=== PATIENT | male | born 1965 | race Caucasian/White ===

== ENCOUNTER → 2016-04-29 | Outpatient (CLI) | payer OTHER ==
--- NOTE | 2016-04-29 18:49 | CT ---
History ankle pain. Comparison none. TECHNIQUE: Multiple axial sections were obtained of the right ankle from the distal tibia to the bottom of the f oot with no contrast. FINDINGS: The ankle mortise is anatomic. Joint spaces are fairly normal. I see no fracture line. Subtalar joint is normal. There is spurring of the anterior talonavicular joint. There are plantar and Achilles bayron caneal spurs. The collateral ligaments appear intact. Tarsal bones appear intact. There are small deg enerative cysts in the anterior calcaneus at the subtalar joint. There appears to be some fluid aroun d the medial flexor tendons of the ankle. The Achilles tendon is intact. CONCLUSION: Calcaneal spurring. Mild osteoarthritis at the talonavicular joint and also subtalar joint. No fractu re. Mild subcutaneous edema is noted around the ankle joint. Fluid is seen around the medial flexor t endons of the ankle that could relate to some tendinitis.
== END | disposition home or self-care (01) ==
LOC: RADCTMAIN 17:25
PROVIDERS: ATTEND Orthopaedic Surgery
DX: M19.071 Primary osteoarthritis, right ankle and foot (principal); M21.41 Flat foot [pes planus] (acquired), right foot

== ENCOUNTER → 2016-05-12 | Outpatient (CLI) | payer OTHER ==
--- NOTE | 2016-05-12 11:53 | PN ---
DATE OF SERVICE: 05/12/2016 A 50-year-old gentleman who has been followed in the [facility] for evaluation and treatment of obstructive sleep apnea-hypopnea syndrome. Patient continues to snore and has episodes of palpitation during the sleep. He usually sleeps on working days from 5 a.m. until about 10 a.m. and on the weekends. He sleeps from around 3 a.m. until 10 a.m. falling asleep: She wakes up tired, feels sleepy during the day. [place] Sleepiness Scale is 13. MEDICATIONS: Furosemide, hydrochlorothiazide, simvastatin, metoprolol. During physical exam, patient in no distress. BP 148/81, HR 58, RR 16. Height 5, 9 and the current weight 322. BMI 46.8. Temperature 97.9. Oxygen saturation at room air 100%. Oropharynx showed moderately low position of soft palate. ABDOMEN: Obese. Other physical exam normal except ( ) in the right foot. IMPRESSION: 1. Snoring, low position of soft palate, sleepiness, obstructive sleep apnea-hypopnea syndrome. 2. Obesity. 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 4. Hypertension. 5. History of osteoarthritis mostly in the right foot. 6. Episodes of cardiac palpitation. 7. Hyperlipidemia. PLAN: 1. Home sleep apnea test for evaluation of patient's breathing during the sleep. 2. CPAP titration if sleep study revealed positive for obstructive sleep apnea-hypopnea syndrome. 3. Losing weight. 4. Sleep hygiene with time in bed for at least 8 hours. 5. No driving if feeling sleepiness. Thank you very much for allowing me to participate in the management of your patient. Sincerely, Patrick Evans MD, PhD, FAASM. Diplomat of [place] [employer], Sleep Medicine Board by [place] [employer] [employer] [facility] [place]
== END | disposition home or self-care (01) ==
LOC: SLEEP 10:19
PROVIDERS: ATTEND Internal Medicine
DX: G47.33 Obstructive sleep apnea (adult) (pediatric) (principal); E66.9 Obesity, unspecified; Z68.42 Body mass index [BMI] 45.0-49.9, adult; I10 Essential (primary) hypertension; M19.071 Primary osteoarthritis, right ankle and foot; R00.2 Palpitations; E78.5 Hyperlipidemia, unspecified; Z79.899 Other long term (current) drug therapy

== ENCOUNTER 2017-10-25 10:56 | Day surgery (SDC) | payer OTHER ==
[2017-10-23 09:24] VITALS: BMI 45.1
[~2017-10-25 10:56] MED LIST: ONDANSETRON 4 MG/2 ML VIAL IVP ONE
[2017-10-25] MEDS: LACTATED RINGERS 1,000 ML IV SCH ×3 (12:05→21:01)
[2017-10-25] MEDS ORDERED: LIDOCAINE 1% 20 ML VIAL (10MG/ML) FOR IV START INTRADERMA ONE (12:05)
[2017-10-25] MEDS ORDERED: ONDANSETRON 4 MG/2 ML VIAL ONE (12:05)
[2017-10-25] MEDS ORDERED: MIDAZOLAM 2 MG/2 ML VIAL ONE ×2 (12:06→13:29)
[2017-10-25] MEDS ORDERED: LIDOCAINE 1% INJ 10MG/ML (20 ML MDV) ONE (13:29)
[2017-10-25] MEDS ORDERED: PROPOFOL 10 MG/ML 20 ML VIAL IV ONE (13:29)
[2017-10-25] MEDS ORDERED: SUCCINYLCHOLINE CHLORIDE 100 MG/5 ML SYR IV ONE (13:29)
[2017-10-25] MEDS ORDERED: NEOSTIGMINE 1 MG/ML 10 ML VIAL ONE (13:29)
[2017-10-25] MEDS ORDERED: fentaNYL (PF) 50 MCG/ML 2 ML AMP ONE (13:29)
[2017-10-25] MEDS ORDERED: ePHEDrine SULFATE/0.9% NACL/PF 50 MG/5 ML SYRINGE IV ONE (13:29)
[2017-10-25] MEDS ORDERED: ROPIVACAINE 5 MG/ML 30 ML VIAL ONE (13:29)
[2017-10-25] MEDS ORDERED: GLYCOPYRROLATE 0.2 MG/ML 2 ML VIAL ONE (13:29)
[2017-10-25] MEDS ORDERED: ROCURONIUM BROMIDE 10 MG/ML 10 ML VIAL IV ONE (13:29)
[2017-10-25] MEDS ORDERED: CLINDAMYCIN 1,800 MG in SODIUM CHLORIDE 0.9% IRRIGATIO 3,000 ML IRRIGATION ONE (14:21)
[2017-10-25] MEDS ORDERED: LACTATED RINGERS 1,000 ML IV ONE ×2 (14:30)
--- NOTE | 2017-10-25 15:14 | XR ---
Fluoroscopy History: RT ankle ORIF Rt ankle ORIF, 1:12 fluoro time, [address] Iglesias.
--- NOTE | 2017-10-25 15:33 | P.OP ---
Date of Procedure: 10/25/17 Preoperative Diagnosis: 1. 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 Gastroc equinus contracture, right 3. Morbid obesity with BMI 45.2 Postoperative Diagnosis: Same Procedure(s) Performed: 1. Right subtalar arthrodesis 2. Right gastrocnemius recession 3. Application of short leg splint by physician, right leg Anesthesia: HARLANA Surgeon: Guru Iglesias Tourist Information Assistant #1: Abilio Sosa Estimated Blood Loss (ml): 25 IV fluids (ml): 100 Pathology: none sent Condition: stable Disposition: PACU Indications for Procedure: The patient is a 51-year-old male with a medical history significant for morbid obesity with a BMI 45.2 has had a long-standing history of problems with his right foot. He was diagnosed with an adult acquired flat foot deformity and lateral sided ankle pain. His x-rays showed impingement at the lateral process of the talus and critical angle and the calcaneus. He was initially managed nonsurgically with activity modification and an Annalisa brace. He had continued pain since a computed tomography scan was ordered to assess the amount of arthritis. The computed tomography scan showed cystic changes at the critical angle of the calcaneus. The patient underwent an image guided injection of the subtalar joint and had almost complete relief of his symptoms for 3 weeks. The pain subsequently returned. We discussed continued nonsurgical treatment versus surgery. The patient had failed over 2 years of nonsurgical treatment and requested surgery. We discussed different surgical options. Due to the patient's weight and findings of cystic changes already developing in the calcaneus I recommended a subtalar fusion. The patient understands the potential risks and complications of surgery including but not limited to risk of anesthesia, risk of superficial infection, risk of deep infection, risk of delayed wound healing, risk of wound necrosis, risk of nonunion of the fusion site, risk of malunion of the fusion site, over correction of his deformity, risk of under correction of his deformity, risk of continued pain, risk of chronic pain, risk of chronic swelling, risk of DVT, risk of PE, risk of generalized to satisfaction of surgery, risk of need for further surgery, risk of symptomatic hardware, and risk of loss of life or limb. The patient provided his verbal and written consent to go forward with surgery. Description of Procedure: The patient was identified in preoperative holding and the correct right leg was marked with my initials. I reviewed the consent form with the patient and his family. All their questions were answered. The patient was then brought back to the operating room by anesthesia. He is positioned on the OR table where a general anesthetic and preoperative antibiotics were administered. A tourniquet was applied to the proximal aspect of the right leg. A bump was placed under the right side of his buttock and shoulder and internally rotate the leg. A ramp was placed under the right leg to facilitate imaging. The left leg was secured to the table. The right leg was then prepped and draped in the standard sterile fashion. Prior to starting surgery timeout was performed identifying the correct patient, operative extremity, and procedure. The patient's leg was then elevated, exsanguinated with an Esmarch bandage, and the tourniquet was inflated to 250 mmHg. I began by performing a gastrocnemius recession. A longitudinal incision was marked out over the distal EDL muscle belly of the gastrocnemius. Skin incision was made with a scalpel and dissection was carried down carefully to the subcutaneous tissue with tenotomy scissors. The facet was incised longitudinally in line with skin incision. I bluntly developed interval between the gastrocnemius aponeurosis and superficial fascia. The sural nerve was seen to be adherent to the superficial fascia. Modified right angle retractors were placed in the gastrocnemius aponeurosis was sharply incised from lateral to medial in its entirety. After releasing the gastrocnemius aponeurosis there is a significant increase in dorsiflexion of the ankle with the knee extended. The wound was then copiously irrigated and closed in layers. I then marked out an incision over the lateral aspect of the hindfoot starting at the tip of the distal fibula and extending distally in line with the fourth ray. Skin incision was made a scalpel dissection was carried down carefully to the subcu tissues with tenotomy scissors. The peroneal tendon sheath was incised and the peroneal tendons were retracted plantarly. The capsule of the subtalar joint was markedly inflamed. The capsule was incised and there was a large amount of clear serous fluid. K wires were placed in the lateral talus and calcaneus and a distractor was placed help gain entry to the joint. The cartilage was removed from the middle and posterior facet of the subtalar joint. Once all the cartilage was removed a curet was used to roughen the bony surfaces. The wound was copiously irrigated. A 2.0 mm drill bit was used to perforate the subchondral bone to help facilitate fusion. Augment was injected into the fusion site to help facilitate fusion. At this point a 0.0625 K wire was placed up through the anterior process of the calcaneus. I held the subtalar joint reduced and the K wire was driven up into the talus. I then proceeded to place 2 divergent cannulated screws through the posterior heel up into the talus. The position of the wires was verified with fluoroscopy in the lateral, mortise ankle, and axial heel views. Once I was happy with the position of the wires partially threaded cannulated screws were measured and placed generating excellent compression across the subtalar joint. Final fluoroscopic images were taken verifying position of the hardware. The wound was then gently irrigated taking care to not dilute out the augment solution. The lateral wound was closed in layers. The stab incision over the heel was closed with 3-0 nylon. The tourniquet was let down. A sterile dressing with Betadine soaked Adaptic, 4 x 4, and web roll were up was applied. A well- padded bulky Casanova splint was placed. The patient was then awoken from his anesthetic, transferred to a gurney, and brought to PACU having tolerated the procedure well. Abilio Sosa PA-C was required is a skilled care management assistant for patient positioning, surgical exposure, reduction of the joint, placement of hardware, closure of wounds, and application of splint. Plan: The patient is going to be admitted overnight for pain control and gait training. He will need 2 doses of postoperative antibiotics. While he is in the hospital he will be on Lovenox and can discharge home on aspirin for DVT prophylaxis.
[2017-10-25] MEDS: fentaNYL (PF) 50 MCG/ML 2 ML AMP IV PRN ×2 (15:38→15:42)
[2017-10-25] MEDS ORDERED: HYDROmorphone 1 MG/ML 1 ML SYRINGE IVP PRN ×3 (15:42)
[2017-10-25] MEDS ORDERED: hydrOXYzine PAMOATE 25 MG CAP PO PRN (15:42)
[2017-10-25] MEDS ORDERED: PROCHLORPERAZINE SUPPOSITORY 25 MG SUPP RECTAL PRN (15:42)
[2017-10-25] MEDS ORDERED: ONDANSETRON 4 MG/2 ML VIAL IVP PRN (15:42)
[2017-10-25] MEDS ORDERED: METOCLOPRAMIDE 5 MG/ML 2 ML VIAL IVP PRN (15:42)
[2017-10-25] MEDS ORDERED: diphenhydrAMINE 25 MG CAP PO PRN (15:42)
[2017-10-25] MEDS ORDERED: TEMAZEPAM 15 MG CAP PO PRN (15:42)
[2017-10-25] MEDS ORDERED: SENNOSIDES-DOCUSATE SODIUM 1 EACH TAB PO PRN (15:42)
[2017-10-25] MEDS ORDERED: HYDROcodone/APAP 10-325MG 1 EACH TAB PO PRN (15:45)
[2017-10-25] MEDS: HYDROmorphone 0.5 MG/0.5 ML SYRINGE IVP PRN ×2 (15:51→15:56)
[2017-10-25] MEDS ORDERED: ATORVASTATIN 10 MG TAB PO SCH (21:00)
[2017-10-25] MEDS ORDERED: METOPROLOL SUCCINATE (ER) 25 MG TAB.ER.24H PO SCH (21:00)
[2017-10-25] MEDS ORDERED: METOPROLOL SUCCINATE (ER) 50 MG TAB.ER.24H PO SCH (21:00)
[2017-10-25] MEDS: HYDROcodone/APAP 10-325MG 1 EACH TAB PO PRN (21:44)
--- NOTE | 2017-10-25 22:31 | CONS ---
CONSULTATION REASON FOR CONSULTATION: Advice regarding hypertension and multiple medical issues, requested by Dr. Iglesias. HISTORY OF PRESENT ILLNESS: This 51-year-old gentleman with a past medical history of hypertension, hyperlipidemia, history of DJD, history of hernia surgery, underwent right subtalar arthrodesis, gastrocnemius recession for right subtalar arthritis impingement. The patient tolerated the procedure well. There is no history of any fever, rigor or chills. No history of headache, loss of consciousness, seizures. PAST MEDICAL HISTORY: 1. History of hypertension. 2. Hyperlipidemia. 3. History of DJD. 4. History of psoriasis. HOME MEDICATIONS: 1. Zocor 20 mg at bedtime. 2. HydroDIURIL 25 mg daily. 3. Toprol XL 25 mg daily. 4. Lasix 20 mg daily. 5. Hydrocodone 5 mg q.6 p.r.n. 6. Aspirin 325 b.i.d. ALLERGIES: PENICILLIN. FAMILY HISTORY: No history of heart disease or strokes in the family. SOCIAL HISTORY: No history of smoking. No history of alcohol intake. REVIEW OF SYSTEMS: ENT: No diminished hearing. No diminished vision. CARDIOVASCULAR SYSTEM: No angina, palpitations. RESPIRATORY SYSTEM: No cough, hemoptysis. GI: No nausea, vomiting. : No dysuria or retention. NERVOUS SYSTEM: As mentioned earlier. ALLERGY/IMMUNOLOGY: No asthma or hayfever. MUSCULOSKELETAL: As mentioned earlier. HEMATOLOGY/ONCOLOGY: No history of anemia. ENDOCRINE: No history of diabetes, hypothyroidism. CONSTITUTIONAL: As mentioned earlier. DERMATOLOGY: Negative. RHEUMATOLOGY: Negative. PSYCHIATRY: As mentioned earlier. PHYSICAL EXAMINATION: Patient alert and oriented x3. Pulse 66, blood pressure 118/64, respirations 16, temperature 97.2, pulse ox 100% on 2 L. HEENT: Conjunctivae normal. Oral mucosa moist. NECK: No jugular venous distention. No carotid bruit. No lymph node enlargement. CARDIOVASCULAR SYSTEM: S1, S2 muffled. RESPIRATORY SYSTEM: Breath sounds diminished at the bases. No rhonchi. No crackles. ABDOMEN: Soft, non-tender. No mass palpable. No hepatosplenomegaly. LEGS: Status post right foot surgery. NERVOUS SYSTEM: No focal deficits. LABS: The preoperative labs are CBC within normal limits. Coags are normal. Chemistries showed LDL is 137, HDL of 37. ASSESSMENT: 1. Status post right subtalar arthrodesis and right gastrocnemius recession for right subtalar arthritis with impingement. 2. Hypertension. 3. Hyperlipidemia. 4. History of degenerative joint disease. 5. Psoriasis. 6. Obesity with body mass index of 45.2. RECOMMENDATIONS AND DISCUSSION: In this 51-year-old gentleman who presented with multiple complex medical issues, at this time I recommend to continue current medications, continue symptomatic treatment. I recommend resuming the home medications. Monitor blood pressure closely. I would also recommend holding the beta blockers if the patient has significant bradycardia. I would also recommend repeat labs to ensure normalcy as far as the electrolytes are concerned. Otherwise, DVT prophylaxis. Incentive spirometry. Pain management per Ortho. We will follow the patient closely with you. See orders for further details. Thank you, Dr. Iglesias, for letting us participate in the care of this patient. KARMA / MARIANN: [id number] /
[2017-10-26] MEDS: LACTATED RINGERS 1,000 ML IV SCH ×2 (03:26→09:09)
[2017-10-26] MEDS: HYDROcodone/APAP 10-325MG 1 EACH TAB PO PRN (04:04)
[2017-10-26 07:42] LABS: Basophils % (A) 0 %; Eosinophils # (A) 0.1 k/uL (0-0.7); Eosinophils % (A) 1 %; HCT 41.5 % (39.0-53.0); HGB 13.5 gm/dL (13.0-17.5); Lymphocytes % (A) 12 %; MCH 29.6 pg (25.0-35.0); MCHC 32.5 g/dL (31.0-37.0); Mean Platelet Volume 6.4; Monocytes # (A) 0.6 k/uL (0-1.0); Monocytes % (A) 7 %; Neutrophils # (A) 6.5 k/uL (1.3-7.7); Neutrophils % (A) 78 %; Platelet Count 257 k/uL (150-450); RBC 4.56 m/uL (4.30-5.90); RDW 13.4 % (11.5-15.5); WBC 8.4 k/uL (3.8-10.6)
[2017-10-26 07:53] LABS: Anion Gap 4 mmol/L; Blood Urea Nitrogen 13 mg/dL (9-20); Calcium 8.3 mg/dL (8.4-10.2); Carbon Dioxide 33 mmol/L (22-30); Chloride 102 mmol/L (98-107); Glucose 113 mg/dL (74-99); Potassium 3.7 mmol/L (3.5-5.1); Sodium 139 mmol/L (137-145)
[2017-10-26] MEDS ORDERED: HYDROCHLOROTHIAZIDE 25 MG TAB PO SCH (09:00)
[2017-10-26] MEDS ORDERED: FUROSEMIDE 20 MG TAB PO SCH (09:00)
[2017-10-26] MEDS ORDERED: ENOXAPARIN 40 MG/0.4 ML SYRINGE SQ SCH (09:00)
[2017-10-26 09:08] VITALS: PULSE 68; RESP 17; TEMP 98.3
[2017-10-26 09:18] VITALS: BP 114/75
--- NOTE | 2017-10-26 09:28 | P.DS ---
Providers Expected date of discharge: 10/26/17 Attending physician: Guru Iglesias Consults: 10/25/17 15:42 Consult Physician Routine Consulting Provider: Mauro Matos Consult Reason/Comments: post op medical management Do you want consulting provider notified?: Yes Primary care physician: Stated None - Discharge Diagnosis(es) (1) Acquired right flat foot Patient was admitted to the OR on 10/25/2017 to undergo a right subtalar arthrodesis and gastroc recession. He had failed conservative measures as an outpatient and desired to proceed with elective surgery after given informed consent. He underwent the above procedure which he tolerated well without complication. Postoperative hospital course has remained without complication. On day of discharge he is afebrile, vital signs stable, labs within acceptable ranges, tolerating by mouth meds and diet, voiding without difficulty , positive flatus, denies abdominal pain or calf pain, pain is controlled on oral pain medication and has no new complaints. Wound is benign, neurovascular status is intact, calf is soft and nontender, abdomen soft and nontender. Review of systems is negative for numbness, tingling, fever, chills, chest pain , shortness breath, nausea, vomiting, dizziness, headaches, slurred speech or other. Current Visit: Yes Status: Acute Priority: Medium Procedures: Right subtalar arthrodesis Patient Condition at Discharge: Good Plan - Discharge Summary Discharge Rx Participant: Yes New Discharge Prescriptions: New HYDROcodone/APAP 5-325MG [[place] 5-325] 1 - 2 tab PO Q6HR PRN #42 tab PRN Reason: Pain Aspirin 325 mg PO BID #28 tab No Action Metoprolol Succinate [Toprol XL] 25 mg PO HS Furosemide [Lasix] 20 mg PO DAILY Hydrochlorothiazide [Hydrodiuril] 25 mg PO DAILY Simvastatin [Zocor] 20 mg PO HS Discharge Medication List Furosemide [Lasix] 20 mg PO DAILY 06/18/14 [History] Metoprolol Succinate [Toprol XL] 25 mg PO HS 06/18/14 [History] Hydrochlorothiazide [Hydrodiuril] 25 mg PO DAILY 10/23/17 [History] Simvastatin [Zocor] 20 mg PO HS 10/23/17 [History] Aspirin 325 mg PO BID #28 tab 10/25/17 [Rx] HYDROcodone/APAP 5-325MG [[place] 5-325] 1 - 2 tab PO Q6HR PRN #42 tab 10/25/17 [ Rx] Follow up Appointment(s)/Referral(s): Guru Iglesias MD [Medical Doctor] - 2 Weeks Activity/Diet/Wound Care/Special Instructions: 1. Non-weight bearing on your right leg 2. Ice and elevate your right leg 3. Do not remove your splint, keep clean and dry 4. Take pain medications as prescribed 5. Take a 325 mg Aspirin twice a day to lower your risk of blood clot Discharge Disposition: HOME SELF-CARE
[2017-10-26] MEDS ORDERED: POTASSIUM CHLORIDE ER 20 MEQ TAB.ER PO STA (10:52)
== END 2017-10-26 12:10 | disposition home or self-care (01) ==
LOC: OR 10:56 → 3SUR 15:28 → OR 10-26 12:10
PROVIDERS: ATTEND Orthopaedic Surgery
DX: M19.071 Primary osteoarthritis, right ankle and foot (principal); M25.871 Other specified joint disorders, right ankle and foot; M62.461 Contracture of muscle, right lower leg; M21.41 Flat foot [pes planus] (acquired), right foot; E66.01 Morbid (severe) obesity due to excess calories; Z68.42 Body mass index [BMI] 45.0-49.9, adult; I10 Essential (primary) hypertension; E78.00 Pure hypercholesterolemia, unspecified; G47.33 Obstructive sleep apnea (adult) (pediatric); R60.0 Localized edema; B35.3 Tinea pedis; R00.2 Palpitations; Z79.899 Other long term (current) drug therapy; Z88.0 Allergy status to penicillin
CPT/HCPCS: 97161; 80048; 85025; 73600; 28725; 27687; 64445; C1713 ×2; J2250; J2710; J0690 ×2; J2405; J2001; J1650; J3010; J1170 ×2; J2795; J0330; J2704

== ENCOUNTER 2017-12-03 08:25 | Emergency (ER) | payer OTHER ==
[2017-12-03] MEDS ORDERED: SODIUM CHLORIDE 0.9% 1,000 ML IV STA (08:32)
--- NOTE | 2017-12-03 08:37 | ED ---
Arrhythmia/Palpitations HPI - General Stated Complaint: palpatations Time Seen by Provider: 12/03/17 08:25 Source: patient, EMS, RN notes reviewed, old records reviewed Mode of arrival: EMS Limitations: no limitations - History of Present Illness Initial Comments: This is a 52-year-old male with a history of recent surgery on his right lower extremity who also has been on Bactrim for about a week but quit taking it 3 days ago because of it making him "sick" who presents by EMS with complaints of palpitations going on for about the last week he's had some nausea with this. He states he's had the feeling of skipped beats will go on normally and then start skipping. He states had 2 episodes of nausea vomiting this prior week he has had some sweatiness to his hands no cough or phlegm production he does get some increased nausea with head movement and certain positional changes. MD Complaint: "skipped beats", palpitations - Related Data Home Medications Medication Instructions Recorded Confirmed Furosemide [Lasix] 20 mg PO DAILY 06/18/14 12/03/17 Metoprolol Succinate [Toprol XL] 25 mg PO HS 06/18/14 12/03/17 Simvastatin [Zocor] 20 mg PO HS 10/23/17 12/03/17 Hydrochlorothiazide [Hydrodiuril] 25 mg PO DAILY 12/03/17 12/03/17 Previous Rx's Medication Instructions Recorded Clindamycin [Cleocin] 150 mg PO Q6H #40 capsule 12/03/17 Magnesium 200 mg PO DAILY #14 tablet 12/03/17 Potassium Chloride ER [K-Dur 20] 20 meq PO DAILY #14 tab 12/03/17 Allergies Allergy/AdvReac Type Severity Reaction Status Date / Time Penicillins Allergy SEIZURE Verified 12/03/17 09:24 Review of Systems ROS Statement: Those systems with pertinent positive or pertinent negative responses have been documented in the HPI. ROS Other: All systems not noted in ROS Statement are negative. Past Medical History Past Medical History: Hyperlipidemia, Hypertension, Osteoarthritis (OA), Skin Disorder Additional Past Medical History / Comment(s): Psoriasis. History of Any Multi-Drug Resistant Organisms: None Reported Past Surgical History: Hernia Repair, Orthopedic Surgery Additional Past Surgical History / Comment(s): COLONOSCOPY, right foot arthritic repair surgery Past Anesthesia/Blood Transfusion Reactions: No Reported Reaction Past Psychological History: No Psychological Hx Reported Smoking Status: Never smoker Past Alcohol Use History: None Reported Past Drug Use History: None Reported - Past Family History Mother Family Medical History: Cancer Additional Family Medical History / Comment(s): COLON CANCER Father Family Medical History: Cancer Additional Family Medical History / Comment(s): LUNG AND BONE CANCER General Exam - General Exam Comments Initial Comments: Is a well-developed well-nourished awake alert oriented times 3 male Limitations: no limitations General appearance: alert, in no apparent distress Head exam: Present: atraumatic, normocephalic, normal inspection Eye exam: Present: normal appearance, PERRL, EOMI. Absent: scleral icterus, conjunctival injection, periorbital swelling ENT exam: Present: mucous membranes dry Neck exam: Present: normal inspection. Absent: tenderness, meningismus, lymphadenopathy Respiratory exam: Present: normal lung sounds bilaterally. Absent: respiratory distress, wheezes, rales, rhonchi, stridor Cardiovascular Exam: Present: regular rate, normal rhythm, normal heart sounds. Absent: systolic murmur, diastolic murmur, rubs, gallop, clicks GI/Abdominal exam: Present: soft, normal bowel sounds. Absent: distended, tenderness, guarding, rebound, rigid Extremities exam: Present: full ROM, normal capillary refill, other (A cast is present on the right lower extremity after the dressing and socks removed patient fever examine capillary refill less 2 seconds no evidence of any infectious process.). Absent: tenderness, pedal edema, joint swelling, calf tenderness Back exam: Present: normal inspection Neurological exam: Present: alert, oriented X3, CN II-XII intact Psychiatric exam: Present: normal affect, normal mood Skin exam: Present: warm, dry, intact, normal color. Absent: rash Course Vital Signs 12/03/17 12/03/17 08:31 09:22 Temperature 97.9 F Pulse Rate 62 56 L Respiratory 18 18 Rate Blood Pressure 125/77 121/74 O2 Sat by Pulse 100 97 Oximetry EKG Findings - EKG Results: EKG: interpreted by BLANCA, sinus rhythm (Sinus bradycardia rate of 58. Interval 180 QRS duration 98 QT since QTC 426/14 minimal pulses criteria for LVH nonspecific anterior configuration) Medical Decision Making - Medical Decision Making I did discuss findings with the patient potassium and magnesium levels are at the lower ends of normal patient will be discharged with supplementation in addition he will be changed from Bactrim to clindamycin we did discuss the change. He is to follow-up with his orthopedist return when necessary also follow-up with his own doctor. - Lab Data Result diagrams: 12/03/17 08:43 12/03/17 08:43 Lab Results 12/03/17 12/03/17 12/03/17 Range/Units 08:43 08:43 08:43 WBC 7.1 (3.8-10.6) k/uL RBC 4.86 (4.30-5.90) m/uL Hgb 14.7 (13.0-17.5) gm/dL Hct 43.1 (39.0-53.0) % MCV 88.7 (80.0-100.0) fL MCH 30.2 (25.0-35.0) pg MCHC 34.0 (31.0-37.0) g/dL RDW 13.2 (11.5-15.5) % Plt Count 271 (150-450) k/uL Neutrophils % 67 % Lymphocytes % 23 % Monocytes % 6 % Eosinophils % 2 % Basophils % 1 % Neutrophils # 4.7 (1.3-7.7) k/uL Lymphocytes # 1.6 (1.0-4.8) k/uL Monocytes # 0.4 (0-1.0) k/uL Eosinophils # 0.2 (0-0.7) k/uL Basophils # 0.1 (0-0.2) k/uL PT (9.0-12.0) sec INR (<1.2) APTT (22.0-30.0) sec Sodium 140 (137-145) mmol/L Potassium 3.5 (3.5-5.1) mmol/L Chloride 105 (98-107) mmol/L Carbon Dioxide 28 (22-30) mmol/L Anion Gap 7 mmol/L BUN 16 (9-20) mg/dL Creatinine 0.89 (0.66-1.25) mg/dL Est GFR (CKD-EPI)AfAm >90 (>60 ml/min/1.73 sqM) Est GFR (CKD-EPI)NonAf >90 (>60 ml/min/1.73 sqM) Glucose 109 H (74-99) mg/dL Calcium 9.0 (8.4-10.2) mg/dL Magnesium 1.8 (1.6-2.3) mg/dL Total Bilirubin 0.6 (0.2-1.3) mg/dL AST 19 (17-59) U/L ALT 23 (21-72) U/L Alkaline Phosphatase 93 (38-126) U/L Total Creatine Kinase 125 (55-170) U/L CK-MB (CK-2) 0.9 (0.0-2.4) ng/mL CK-MB (CK-2) Rel Index 0.7 Troponin I <0.012 (0.000-0.034) ng/mL Total Protein 6.9 (6.3-8.2) g/dL Albumin 3.6 (3.5-5.0) g/dL TSH 2.000 (0.465-4.680) mIU/L 12/03/17 Range/Units 08:43 WBC (3.8-10.6) k/uL RBC (4.30-5.90) m/uL Hgb (13.0-17.5) gm/dL Hct (39.0-53.0) % MCV (80.0-100.0) fL MCH (25.0-35.0) pg MCHC (31.0-37.0) g/dL RDW (11.5-15.5) % Plt Count (150-450) k/uL Neutrophils % % Lymphocytes % % Monocytes % % Eosinophils % % Basophils % % Neutrophils # (1.3-7.7) k/uL Lymphocytes # (1.0-4.8) k/uL Monocytes # (0-1.0) k/uL Eosinophils # (0-0.7) k/uL Basophils # (0-0.2) k/uL PT 10.6 (9.0-12.0) sec INR 1.1 (<1.2) APTT 25.5 (22.0-30.0) sec Sodium (137-145) mmol/L Potassium (3.5-5.1) mmol/L Chloride (98-107) mmol/L Carbon Dioxide (22-30) mmol/L Anion Gap mmol/L BUN (9-20) mg/dL Creatinine (0.66-1.25) mg/dL Est GFR (CKD-EPI)AfAm (>60 ml/min/1.73 sqM) Est GFR (CKD-EPI)NonAf (>60 ml/min/1.73 sqM) Glucose (74-99) mg/dL Calcium (8.4-10.2) mg/dL Magnesium (1.6-2.3) mg/dL Total Bilirubin (0.2-1.3) mg/dL AST (17-59) U/L ALT (21-72) U/L Alkaline Phosphatase (38-126) U/L Total Creatine Kinase (55-170) U/L CK-MB (CK-2) (0.0-2.4) ng/mL CK-MB (CK-2) Rel Index Troponin I (0.000-0.034) ng/mL Total Protein (6.3-8.2) g/dL Albumin (3.5-5.0) g/dL TSH (0.465-4.680) mIU/L - Radiology Data Radiology results: report reviewed (I did review the imaging and report no acute findings.), image reviewed Disposition Clinical Impression: Palpitations Disposition: HOME SELF-CARE Condition: Good Instructions: Heart Palpitations (ED), Hypokalemia (ED) Prescriptions: Clindamycin [Cleocin] 150 mg PO Q6H #40 capsule Magnesium 200 mg PO DAILY #14 tablet Potassium Chloride ER [K-Dur 20] 20 meq PO DAILY #14 tab Is patient prescribed a controlled substance at d/c from ED?: No Referrals: Phillip Camp MD [Primary Care Provider] - 1-2 days
[2017-12-03 09:01] LABS: Basophils # (A) 0.1 k/uL (0-0.2); Basophils % (A) 1 %; Eosinophils # (A) 0.2 k/uL (0-0.7); Eosinophils % (A) 2 %; HCT 43.1 % (39.0-53.0); HGB 14.7 gm/dL (13.0-17.5); Lymphocytes # (A) 1.6 k/uL (1.0-4.8); Lymphocytes % (A) 23 %; MCH 30.2 pg (25.0-35.0); MCV 88.7 fL (80.0-100.0); Mean Platelet Volume 6.5; Monocytes # (A) 0.4 k/uL (0-1.0); Monocytes % (A) 6 %; Neutrophils # (A) 4.7 k/uL (1.3-7.7); Neutrophils % (A) 67 %; Platelet Count 271 k/uL (150-450); RBC 4.86 m/uL (4.30-5.90); RDW 13.2 % (11.5-15.5); WBC 7.1 k/uL (3.8-10.6)
[2017-12-03 09:06] LABS: INR 1.1 (<1.2); Partial Thromboplastin Time 25.5 sec (22.0-30.0); Prothrombin Time 10.6 sec (9.0-12.0)
[2017-12-03 09:09] LABS: ALT 23 U/L (21-72); AST 19 U/L (17-59); Albumin 3.6 g/dL (3.5-5.0); Alkaline Phosphatase 93 U/L (38-126); Anion Gap 7 mmol/L; Blood Urea Nitrogen 16 mg/dL (9-20); Carbon Dioxide 28 mmol/L (22-30); Chloride 105 mmol/L (98-107); Glucose 109 mg/dL (74-99); Magnesium 1.8 mg/dL (1.6-2.3); Potassium 3.5 mmol/L (3.5-5.1); Sodium 140 mmol/L (137-145); Total Bilirubin 0.6 mg/dL (0.2-1.3); Total Protein 6.9 g/dL (6.3-8.2)
--- NOTE | 2017-12-03 09:11 | XR ---
EXAMINATION TYPE: XR chest 2V DATE OF EXAM: 12/03/2017 HISTORY: dysrhythmia. REFERENCE: NONE. FINDINGS: The lungs are clear. Pleural space are clear. The heart is not enlarged. IMPRESSION: NO ACTIVE INTRATHORACIC DISEASE.
[2017-12-03 09:16] LABS: Creatine Kinase 125 U/L (55-170)
[2017-12-03 09:28] LABS: Creatine Kinase MB 0.9 ng/mL (0.0-2.4); Troponin I <0.012 ng/mL (0.000-0.034)
[2017-12-03] MEDS ORDERED: POTASSIUM CHLORIDE ER 20 MEQ TAB.ER PO STA (10:13)
[2017-12-03 11:01] VITALS: BP 114/78; PULSE 62; RESP 16; TEMP 98.3
== END 2017-12-03 11:10 | disposition home or self-care (01) ==
LOC: EC 08:25
DX: R00.2 Palpitations (principal); R11.0 Nausea; R61 Generalized hyperhidrosis; E78.5 Hyperlipidemia, unspecified; I10 Essential (primary) hypertension; Z79.899 Other long term (current) drug therapy; Z88.0 Allergy status to penicillin
CPT/HCPCS: 36415; 71046; 80053; 82550; 82553; 83735; 84443; 84484; 85025; 85610; 85730; 87040; 93005; 96360; 96361; 99285

== ENCOUNTER 2017-12-18 08:18 | Emergency (ER) | payer OTHER ==
[2017-12-18 08:29] VITALS: TEMP 97.9
[2017-12-18] MEDS ORDERED: SODIUM CHLORIDE 0.9% 1,000 ML IV STA (08:44)
[2017-12-18] MEDS ORDERED: ONDANSETRON 4 MG/2 ML VIAL IVP STA (08:44)
[2017-12-18 08:45] VITALS: RESP 18
--- NOTE | 2017-12-18 08:58 | ED ---
General Adult HPI - General Chief complaint: Nausea/Vomiting/Diarrhea Stated complaint: vomiting, sick for a few days Time Seen by Provider: 12/18/17 08:30 Source: patient, RN notes reviewed, old records reviewed Mode of arrival: wheelchair Limitations: no limitations - History of Present Illness Initial comments: 52-year-old male history of hypercholesterolemia presents for 3 days of nausea vomiting and diarrhea. Patient states he has had nausea and vomiting each morning for the past 3 mornings. He also reports several episodes of diarrhea over this same time. Denies blood in the vomit or the diarrhea. Denies abdominal pain. Denies chest pain or shortness of breath. Denies fever or chills. Denies known sick contacts. - Related Data Home Medications Medication Instructions Recorded Confirmed Metoprolol Succinate [Toprol XL] 50 mg PO HS 06/18/14 12/18/17 Simvastatin [Zocor] 20 mg PO HS 10/23/17 12/18/17 Hydrochlorothiazide [Hydrodiuril] 25 mg PO DAILY 12/03/17 12/18/17 Hydrochlorothiazide [Hydrodiuril] 25 mg PO DAILY 12/18/17 12/18/17 Allergies Allergy/AdvReac Type Severity Reaction Status Date / Time Penicillins Allergy SEIZURE Verified 12/18/17 08:47 Review of Systems ROS Statement: Those systems with pertinent positive or pertinent negative responses have been documented in the HPI. ROS Other: All systems not noted in ROS Statement are negative. Past Medical History Past Medical History: Hyperlipidemia, Hypertension, Osteoarthritis (OA), Skin Disorder Additional Past Medical History / Comment(s): Psoriasis. History of Any Multi-Drug Resistant Organisms: None Reported Past Surgical History: Hernia Repair Additional Past Surgical History / Comment(s): COLONOSCOPY Past Anesthesia/Blood Transfusion Reactions: No Reported Reaction Past Psychological History: No Psychological Hx Reported Smoking Status: Never smoker Past Alcohol Use History: None Reported Past Drug Use History: None Reported - Past Family History Mother Family Medical History: Cancer Additional Family Medical History / Comment(s): COLON CANCER Father Family Medical History: Cancer Additional Family Medical History / Comment(s): LUNG AND BONE CANCER General Exam Limitations: no limitations General appearance: alert, in no apparent distress Head exam: Present: atraumatic, normocephalic Eye exam: Present: normal appearance, PERRL ENT exam: Present: normal exam Neck exam: Present: normal inspection. Absent: tenderness, meningismus Respiratory exam: Present: normal lung sounds bilaterally. Absent: respiratory distress, wheezes Cardiovascular Exam: Present: regular rate, normal rhythm GI/Abdominal exam: Present: soft. Absent: distended, tenderness, guarding Extremities exam: Present: normal capillary refill, other (Right ankle cast). Absent: pedal edema Neurological exam: Present: alert, oriented X3, CN II-XII intact. Absent: motor sensory deficit Psychiatric exam: Present: normal affect, normal mood Skin exam: Present: warm, dry, intact. Absent: cyanosis, diaphoretic Course Vital Signs 12/18/17 12/18/17 08:26 08:42 Temperature 97.9 F Pulse Rate 69 61 Respiratory 16 18 Rate Blood Pressure 200/65 131/89 O2 Sat by Pulse 100 100 Oximetry Medical Decision Making - Medical Decision Making 52-year-old male presenting with nausea vomiting and diarrhea. No fever. No chest pain. No dyspnea. Patient's abdomen is soft nontender nondistended. No complaints of abdominal pain. X-rays obtained of the chest and abdomen which were negative for acute process of the thorax. Normal CBC, normal CMP. Patient has no episodes of vomiting while in the emergency department. Triage blood pressure was elevated although I feel this was not accurate, repeat blood pressure have been normal. Patient will be discharged home with outpatient follow-up. - Lab Data Result diagrams: 12/18/17 08:53 12/18/17 08:53 Lab Results 12/18/17 12/18/17 12/18/17 Range/Units 08:53 08:53 08:53 WBC 6.7 (3.8-10.6) k/uL RBC 5.13 (4.30-5.90) m/uL Hgb 15.5 (13.0-17.5) gm/dL Hct 45.2 (39.0-53.0) % MCV 88.1 (80.0-100.0) fL MCH 30.2 (25.0-35.0) pg MCHC 34.3 (31.0-37.0) g/dL RDW 13.5 (11.5-15.5) % Plt Count 305 (150-450) k/uL Neutrophils % 71 % Lymphocytes % 19 % Monocytes % 7 % Eosinophils % 2 % Basophils % 1 % Neutrophils # 4.8 (1.3-7.7) k/uL Lymphocytes # 1.3 (1.0-4.8) k/uL Monocytes # 0.5 (0-1.0) k/uL Eosinophils # 0.1 (0-0.7) k/uL Basophils # 0.0 (0-0.2) k/uL PT (9.0-12.0) sec INR (<1.2) APTT (22.0-30.0) sec Sodium 139 (137-145) mmol/L Potassium 3.9 (3.5-5.1) mmol/L Chloride 104 (98-107) mmol/L Carbon Dioxide 27 (22-30) mmol/L Anion Gap 8 mmol/L BUN 16 (9-20) mg/dL Creatinine 0.90 (0.66-1.25) mg/dL Est GFR (CKD-EPI)AfAm >90 (>60 ml/min/1.73 sqM) Est GFR (CKD-EPI)NonAf >90 (>60 ml/min/1.73 sqM) Glucose 109 H (74-99) mg/dL Plasma Lactic Acid Cesar (0.7-2.0) mmol/L Calcium 9.3 (8.4-10.2) mg/dL Total Bilirubin 0.7 (0.2-1.3) mg/dL AST 20 (17-59) U/L ALT 18 L (21-72) U/L Alkaline Phosphatase 101 (38-126) U/L Total Creatine Kinase 62 (55-170) U/L CK-MB (CK-2) 0.6 (0.0-2.4) ng/mL CK-MB (CK-2) Rel Index 1.0 Troponin I <0.012 (0.000-0.034) ng/mL Total Protein 7.4 (6.3-8.2) g/dL Albumin 3.9 (3.5-5.0) g/dL Amylase 42 (30-110) U/L Lipase 52 (23-300) U/L 12/18/17 12/18/17 Range/Units 08:53 08:53 WBC (3.8-10.6) k/uL RBC (4.30-5.90) m/uL Hgb (13.0-17.5) gm/dL Hct (39.0-53.0) % MCV (80.0-100.0) fL MCH (25.0-35.0) pg MCHC (31.0-37.0) g/dL RDW (11.5-15.5) % Plt Count (150-450) k/uL Neutrophils % % Lymphocytes % % Monocytes % % Eosinophils % % Basophils % % Neutrophils # (1.3-7.7) k/uL Lymphocytes # (1.0-4.8) k/uL Monocytes # (0-1.0) k/uL Eosinophils # (0-0.7) k/uL Basophils # (0-0.2) k/uL PT 10.4 (9.0-12.0) sec INR 1.1 (<1.2) APTT 25.9 (22.0-30.0) sec Sodium (137-145) mmol/L Potassium (3.5-5.1) mmol/L Chloride (98-107) mmol/L Carbon Dioxide (22-30) mmol/L Anion Gap mmol/L BUN (9-20) mg/dL Creatinine (0.66-1.25) mg/dL Est GFR (CKD-EPI)AfAm (>60 ml/min/1.73 sqM) Est GFR (CKD-EPI)NonAf (>60 ml/min/1.73 sqM) Glucose (74-99) mg/dL Plasma Lactic Acid Cesar 1.0 (0.7-2.0) mmol/L Calcium (8.4-10.2) mg/dL Total Bilirubin (0.2-1.3) mg/dL AST (17-59) U/L ALT (21-72) U/L Alkaline Phosphatase (38-126) U/L Total Creatine Kinase (55-170) U/L CK-MB (CK-2) (0.0-2.4) ng/mL CK-MB (CK-2) Rel Index Troponin I (0.000-0.034) ng/mL Total Protein (6.3-8.2) g/dL Albumin (3.5-5.0) g/dL Amylase (30-110) U/L Lipase (23-300) U/L Disposition Clinical Impression: Nausea vomiting and diarrhea Disposition: HOME SELF-CARE Condition: Good Instructions: Acute Nausea and Vomiting (ED), Acute Diarrhea (ED) Is patient prescribed a controlled substance at d/c from ED?: No Referrals: Phillip Camp MD [Primary Care Provider] - 1-2 days Time of Disposition: 10:13
[2017-12-18 09:16] LABS: Basophils % (A) 1 %; Eosinophils # (A) 0.1 k/uL (0-0.7); Eosinophils % (A) 2 %; HCT 45.2 % (39.0-53.0); HGB 15.5 gm/dL (13.0-17.5); Lymphocytes # (A) 1.3 k/uL (1.0-4.8); Lymphocytes % (A) 19 %; MCH 30.2 pg (25.0-35.0); MCHC 34.3 g/dL (31.0-37.0); MCV 88.1 fL (80.0-100.0); Mean Platelet Volume 5.9; Monocytes # (A) 0.5 k/uL (0-1.0); Monocytes % (A) 7 %; Neutrophils # (A) 4.8 k/uL (1.3-7.7); Neutrophils % (A) 71 %; Platelet Count 305 k/uL (150-450); RBC 5.13 m/uL (4.30-5.90); RDW 13.5 % (11.5-15.5); WBC 6.7 k/uL (3.8-10.6)
--- NOTE | 2017-12-18 09:17 | XR ---
EXAMINATION TYPE: XR chest 2V DATE OF EXAM: 12/18/2017 COMPARISON: 12/03/2017 TECHNIQUE: PA and lateral views submitted. HISTORY: Pain FINDINGS: The lungs are clear and there is no pneumothorax, pleural effusion, or focal pneumonia. Biapical pl eural thickening. Heart size stable. Hypertrophic and degenerative change of the spine. IMPRESSION: 1. No acute process.
--- NOTE | 2017-12-18 09:18 | XR ---
EXAMINATION TYPE: XR KUB DATE OF EXAM: 12/18/2017 COMPARISON: NONE HISTORY: Pain and nausea TECHNIQUE: One view abdominal series FINDINGS: The osseous structures are intact. The bowel gas pattern is nonspecific. Lung bases are clear. Curv ature the spine noted. Arthropathy of the hips. IMPRESSION: 1. Nonspecific abdomen.
[2017-12-18 09:24] LABS: INR 1.1 (<1.2); Partial Thromboplastin Time 25.9 sec (22.0-30.0); Prothrombin Time 10.4 sec (9.0-12.0)
[2017-12-18 09:37] LABS: ALT 18 U/L (21-72); AST 20 U/L (17-59); Albumin 3.9 g/dL (3.5-5.0); Alkaline Phosphatase 101 U/L (38-126); Amylase 42 U/L (30-110); Anion Gap 8 mmol/L; Blood Urea Nitrogen 16 mg/dL (9-20); Calcium 9.3 mg/dL (8.4-10.2); Carbon Dioxide 27 mmol/L (22-30); Chloride 104 mmol/L (98-107); Glucose 109 mg/dL (74-99); Lipase 52 U/L (23-300); Potassium 3.9 mmol/L (3.5-5.1); Sodium 139 mmol/L (137-145); Total Bilirubin 0.7 mg/dL (0.2-1.3); Total Protein 7.4 g/dL (6.3-8.2)
[2017-12-18 09:38] LABS: Creatine Kinase 62 U/L (55-170)
[2017-12-18 09:51] LABS: Creatine Kinase MB 0.6 ng/mL (0.0-2.4); Troponin I <0.012 ng/mL (0.000-0.034)
[2017-12-18 10:13] VITALS: BP 120/71; PULSE 62
== END 2017-12-18 10:25 | disposition home or self-care (01) ==
LOC: EC 08:18
DX: R11.2 Nausea with vomiting, unspecified (principal); R19.7 Diarrhea, unspecified; I10 Essential (primary) hypertension; E78.5 Hyperlipidemia, unspecified; E78.00 Pure hypercholesterolemia, unspecified; Z79.899 Other long term (current) drug therapy; Z88.0 Allergy status to penicillin
CPT/HCPCS: 36415; 80053; 82150; 82550; 82553; 83605; 83690; 84484; 85025; 85610; 85730; 71046; 74018; 99284; 96374; 96361; J2405

== ENCOUNTER 2018-07-16 18:08 | Emergency (ER) | payer OTHER ==
[2018-07-16] MEDS ORDERED: ADENOSINE 3 MG/ML 2 ML VIAL IVP STA (18:37)
--- NOTE | 2018-07-16 18:58 | ED ---
General Adult HPI - General Chief complaint: Chest Pain Stated complaint: CHEST PAIN Time Seen by Provider: 07/16/18 18:15 Source: patient, RN notes reviewed Mode of arrival: ambulatory Limitations: no limitations - History of Present Illness Initial comments: 52-year-old male who presents emergency department stating that he is feeling his heart race per patient states this happened multiple times in the past but it stops on its own. Patient states tonight it did not stop so decided to come to the emergency department. Patient states initially when it started he felt a little lightheaded. Patient states he had no chest pain he just feels a anamika nding in his chest per patient denies any difficulty breathing first breath. Patient denies any recent fever chills or cough. Patient denies any xync-oeg-efingst medications. Patient denies any illegal drugs. Patient denies any leg swelling or calf tenderness. Patient denies any abdominal pain patient has nausea vomiting diarrhea. - Related Data Home Medications Medication Instructions Recorded Confirmed Metoprolol Succinate [Toprol XL] 50 mg PO HS 06/18/14 07/16/18 Simvastatin [Zocor] 20 mg PO HS 10/23/17 07/16/18 Hydrochlorothiazide [Hydrodiuril] 25 mg PO DAILY 12/18/17 07/16/18 Furosemide [Lasix] 20 mg PO DAILY 07/16/18 07/16/18 Allergies Allergy/AdvReac Type Severity Reaction Status Date / Time Penicillins Allergy SEIZURE Verified 07/16/18 19:00 Review of Systems ROS Statement: Those systems with pertinent positive or pertinent negative responses have been documented in the HPI. ROS Other: All systems not noted in ROS Statement are negative. Past Medical History Past Medical History: Hyperlipidemia, Hypertension, Osteoarthritis (OA), Skin Disorder Additional Past Medical History / Comment(s): Psoriasis. History of Any Multi-Drug Resistant Organisms: None Reported Past Surgical History: Hernia Repair Additional Past Surgical History / Comment(s): COLONOSCOPY Past Anesthesia/Blood Transfusion Reactions: No Reported Reaction Past Psychological History: No Psychological Hx Reported Smoking Status: Never smoker Past Alcohol Use History: None Reported Past Drug Use History: None Reported - Past Family History Mother Family Medical History: Cancer Additional Family Medical History / Comment(s): COLON CANCER Father Family Medical History: Cancer Additional Family Medical History / Comment(s): LUNG AND BONE CANCER General Exam - General Exam Comments Initial Comments: GENERAL: Patient is well-developed and well-nourished. Patient is nontoxic and well- hydrated and is in mild distress. ENT: Neck is soft and supple. No significant lymphadenopathy is noted. Oropharynx is clear. Moist mucous membranes. Neck has full range of motion without elicit ing any pain. EYES: The sclera were anicteric and conjunctiva were pink and moist. Extraocular mo vements were intact and pupils were equal round and reactive to light. Eyelids were unremarkable. PULMONARY: Unlabored respirations. Good breath sounds bilaterally. No audible rales rhonchi or wheezing was noted. CARDIOVASCULAR: Patient's heart rate was tachycardic at about 160 beats a minute ABDOMEN: Soft and nontender with normal bowel sounds. No palpable organomegaly was noted. There is no palpable pulsatile mass. SKIN: Skin is clear with no lesions or rashes and otherwise unremarkable. NEUROLOGIC: Patient is alert and oriented x3. Cranial nerves II through XII are grossly intact. Motor and sensory are also intact. Normal speech, volume and content. Symmetrical smile. MUSCULOSKELETAL: Normal extremities with adequate strength and full range of motion. No lower extremity swelling or edema. No calf tenderness. LYMPHATICS: No significant lymphadenopathy is noted PSYCHIATRIC: Normal psychiatric evaluation. Limitations: no limitations Course Vital Signs 07/16/18 18:15 Temperature 98.8 F Pulse Rate 61 Respiratory 16 Rate Blood Pressure 108/71 O2 Sat by Pulse 100 Oximetry Medical Decision Making - Medical Decision Making EKG shows supraventricular tachycardia 266 bpm QRS is 88 QT interval is 292 QTC is 485. Patient's EKG shows no obvious ST segment elevation. Patient was occasionally having a sinus beat so I decided had the patient prior down hard he. Down and converted to a normal sinus rhythm. EKG showed a normal sinus rhythm at 75 bpm [place] interval is on a 78 QRSs 100 QT interval 370 QTC is 422. Patient's EKG shows no ST segment elevation or depression or T wave abnormalities are noted. Patient never one pack of SVT while in the emergency department. Patient's labs are normal. Patient was told to follow-up with a primary medical care doctor or cardiology. Patient's told to return if symptoms worsen or he has any new symptoms. - Lab Data Result diagrams: 07/16/18 18:40 07/16/18 18:40 Lab Results 07/16/18 07/16/18 07/16/18 Range/Units 18:40 18:40 18:40 WBC 10.6 (3.8-10.6) k/uL RBC 5.36 (4.30-5.90) m/uL Hgb 15.9 (13.0-17.5) gm/dL Hct 46.8 (39.0-53.0) % MCV 87.3 (80.0-100.0) fL MCH 29.6 (25.0-35.0) pg MCHC 33.9 (31.0-37.0) g/dL RDW 14.7 (11.5-15.5) % Plt Count 323 (150-450) k/uL Neutrophils % 70 % Lymphocytes % 20 % Monocytes % 5 % Eosinophils % 2 % Basophils % 1 % Neutrophils # 7.3 (1.3-7.7) k/uL Lymphocytes # 2.1 (1.0-4.8) k/uL Monocytes # 0.6 (0-1.0) k/uL Eosinophils # 0.2 (0-0.7) k/uL Basophils # 0.1 (0-0.2) k/uL PT 10.3 (9.0-12.0) sec INR 1.0 (<1.2) APTT 25.0 (22.0-30.0) sec Sodium 143 (137-145) mmol/L Potassium 3.5 (3.5-5.1) mmol/L Chloride 104 (98-107) mmol/L Carbon Dioxide 27 (22-30) mmol/L Anion Gap 12 mmol/L BUN 22 H (9-20) mg/dL Creatinine 1.09 (0.66-1.25) mg/dL Est GFR (CKD-EPI)AfAm 89 (>60 ml/min/1.73 sqM) Est GFR (CKD-EPI)NonAf 77 (>60 ml/min/1.73 sqM) Glucose 105 H (74-99) mg/dL Calcium 9.7 (8.4-10.2) mg/dL Magnesium 1.9 (1.6-2.3) mg/dL Total Bilirubin 0.5 (0.2-1.3) mg/dL AST 25 (17-59) U/L ALT 18 L (21-72) U/L Alkaline Phosphatase 116 (38-126) U/L Troponin I (0.000-0.034) ng/mL Total Protein 8.1 (6.3-8.2) g/dL Albumin 4.6 (3.5-5.0) g/dL TSH 1.670 (0.465-4.680) mIU/L Free T4 1.19 (0.78-2.19) ng/dL 07/16/18 Range/Units 18:40 WBC (3.8-10.6) k/uL RBC (4.30-5.90) m/uL Hgb (13.0-17.5) gm/dL Hct (39.0-53.0) % MCV (80.0-100.0) fL MCH (25.0-35.0) pg MCHC (31.0-37.0) g/dL RDW (11.5-15.5) % Plt Count (150-450) k/uL Neutrophils % % Lymphocytes % % Monocytes % % Eosinophils % % Basophils % % Neutrophils # (1.3-7.7) k/uL Lymphocytes # (1.0-4.8) k/uL Monocytes # (0-1.0) k/uL Eosinophils # (0-0.7) k/uL Basophils # (0-0.2) k/uL PT (9.0-12.0) sec INR (<1.2) APTT (22.0-30.0) sec Sodium (137-145) mmol/L Potassium (3.5-5.1) mmol/L Chloride (98-107) mmol/L Carbon Dioxide (22-30) mmol/L Anion Gap mmol/L BUN (9-20) mg/dL Creatinine (0.66-1.25) mg/dL Est GFR (CKD-EPI)AfAm (>60 ml/min/1.73 sqM) Est GFR (CKD-EPI)NonAf (>60 ml/min/1.73 sqM) Glucose (74-99) mg/dL Calcium (8.4-10.2) mg/dL Magnesium (1.6-2.3) mg/dL Total Bilirubin (0.2-1.3) mg/dL AST (17-59) U/L ALT (21-72) U/L Alkaline Phosphatase (38-126) U/L Troponin I <0.012 (0.000-0.034) ng/mL Total Protein (6.3-8.2) g/dL Albumin (3.5-5.0) g/dL TSH (0.465-4.680) mIU/L Free T4 (0.78-2.19) ng/dL Disposition Clinical Impression: SVT (supraventricular tachycardia) Disposition: HOME SELF-CARE Condition: Good Instructions (If sedation given, give patient instructions): Supraventricular Tachycardia (ED) Is patient prescribed a controlled substance at d/c from ED?: No Referrals: Phillip Camp MD [Primary Care Provider] - 1-2 days Time of Disposition: 19:56
[2018-07-16 19:11] LABS: Basophils # (A) 0.1 k/uL (0-0.2); Basophils % (A) 1 %; Eosinophils # (A) 0.2 k/uL (0-0.7); Eosinophils % (A) 2 %; HCT 46.8 % (39.0-53.0); HGB 15.9 gm/dL (13.0-17.5); Lymphocytes # (A) 2.1 k/uL (1.0-4.8); Lymphocytes % (A) 20 %; MCH 29.6 pg (25.0-35.0); MCHC 33.9 g/dL (31.0-37.0); MCV 87.3 fL (80.0-100.0); Monocytes # (A) 0.6 k/uL (0-1.0); Monocytes % (A) 5 %; Neutrophils # (A) 7.3 k/uL (1.3-7.7); Neutrophils % (A) 70 %; Platelet Count 323 k/uL (150-450); RBC 5.36 m/uL (4.30-5.90); RDW 14.7 % (11.5-15.5); WBC 10.6 k/uL (3.8-10.6)
[2018-07-16 19:20] LABS: Albumin 4.6 g/dL (3.5-5.0); Calcium 9.7 mg/dL (8.4-10.2); Magnesium 1.9 mg/dL (1.6-2.3); Potassium 3.5 mmol/L (3.5-5.1); Prothrombin Time 10.3 sec (9.0-12.0); Total Bilirubin 0.5 mg/dL (0.2-1.3); Total Protein 8.1 g/dL (6.3-8.2)
[2018-07-16 19:36] LABS: T4, Free (Free Thyroxine) 1.19 ng/dL (0.78-2.19)
--- NOTE | 2018-07-16 19:44 | XR ---
EXAMINATION TYPE: XR chest 2V DATE OF EXAM: 07/16/2018 COMPARISON: 12/18/2017 HISTORY: Dysrhythmia. Chest pain TECHNIQUE: Frontal and lateral views of the chest are obtained. FINDINGS: Heart and mediastinum are normal. Lungs are clear. Diaphragm is normal. Bony thorax is int act. There are chest leads. IMPRESSION: Normal chest. No change.
[2018-07-16 20:22] VITALS: BP 106/79; PULSE 72; RESP 18; TEMP 98
== END 2018-07-16 20:11 | disposition home or self-care (01) ==
LOC: EC 18:08
DX: I47.1 Supraventricular tachycardia (principal); E78.5 Hyperlipidemia, unspecified; I10 Essential (primary) hypertension; Z88.0 Allergy status to penicillin; Z79.899 Other long term (current) drug therapy; Z53.8 Procedure and treatment not carried out for other reasons
CPT/HCPCS: 36415; 71046; 80053; 83735; 84439; 84443; 84484; 85025; 85610; 85730; 93005; 99285

== ENCOUNTER 2019-09-27 07:50 | Inpatient (IN) | payer OTHER ==
--- NOTE | 2019-09-27 08:27 | ED ---
General Adult HPI - General Chief complaint: Chest Pain Stated complaint: chest pain Time Seen by Provider: 09/27/19 07:54 Source: patient, RN notes reviewed, old records reviewed Mode of arrival: ambulatory Limitations: no limitations - History of Present Illness Initial comments: 53-year-old male presenting for evaluation of chest pain. He states pain began about one hour prior to arrival. He states that it was his upper chest rating to his left arm. He has history of hypertension. No history of coronary artery disease. He is a nonsmoker. He states he had some associated diaphoresis with this no vomiting. No abdominal pain. Pain is nearly completely resolved, stating is a 1 out of 10 currently. - Related Data Home Medications Medication Instructions Recorded Confirmed hydroCHLOROthiazide [Hydrodiuril] 25 mg PO DAILY 12/18/17 09/27/19 Atorvastatin [Lipitor] 20 mg PO HS 09/27/19 09/27/19 Furosemide [Lasix] 40 mg PO DAILY 09/27/19 09/27/19 Verapamil HCl [Verapamil ER] 120 mg PO HS 09/27/19 09/27/19 buPROPion XL [Wellbutrin Xl] 150 mg PO DAILY 09/27/19 09/27/19 Allergies Allergy/AdvReac Type Severity Reaction Status Date / Time Penicillins Allergy SEIZURE Verified 09/27/19 09:32 Review of Systems ROS Statement: Those systems with pertinent positive or pertinent negative responses have been documented in the HPI. ROS Other: All systems not noted in ROS Statement are negative. Past Medical History Past Medical History: Hyperlipidemia, Hypertension, Osteoarthritis (OA), Skin Disorder Additional Past Medical History / Comment(s): Psoriasis. History of Any Multi-Drug Resistant Organisms: None Reported Past Surgical History: Hernia Repair Additional Past Surgical History / Comment(s): COLONOSCOPY Past Anesthesia/Blood Transfusion Reactions: No Reported Reaction Past Psychological History: No Psychological Hx Reported Smoking Status: Never smoker Past Alcohol Use History: None Reported Past Drug Use History: None Reported - Past Family History Mother Family Medical History: Cancer Additional Family Medical History / Comment(s): COLON CANCER Father Family Medical History: Cancer Additional Family Medical History / Comment(s): LUNG AND BONE CANCER General Exam Limitations: no limitations General appearance: alert, in no apparent distress Head exam: Present: atraumatic, normocephalic Eye exam: Present: normal appearance, PERRL ENT exam: Present: normal exam Neck exam: Present: normal inspection Respiratory exam: Present: normal lung sounds bilaterally. Absent: respiratory distress, wheezes Cardiovascular Exam: Present: regular rate, normal rhythm GI/Abdominal exam: Present: soft. Absent: distended, tenderness, guarding Extremities exam: Present: normal inspection, normal capillary refill. Absent: pedal edema Neurological exam: Present: alert, oriented X3, CN II-XII intact. Absent: motor sensory deficit Psychiatric exam: Present: normal affect, normal mood Skin exam: Present: warm, dry, intact. Absent: cyanosis, diaphoretic Course Vital Signs 09/27/19 07:59 Temperature 98.5 F Pulse Rate 67 Respiratory 18 Rate Blood Pressure 140/84 O2 Sat by Pulse 100 Oximetry EKG Findings - EKG Comments: EKG Findings:: EKG: Sinus rhythm with frequent PVC, bigeminy, LVH, rate of 66, VA interval 174, QRS duration 104, QTC 457, no ST segment elevation. Repeat EKG at 839, sinus bradycardia, incomplete right bundle branch block, rate of 58, VA interval 180, QRS duration 100, QTC 420, no ST segment elevation. Medical Decision Making - Medical Decision Making 53-year-old male presenting with typical chest pain. EKG initially is sinus rhythm with frequent PVC, bigeminy. Repeat EKG sinus rhythm with no ST segment elevation. Chest x-ray negative for acute cardiopulmonary disease. Patient has normal CBC, normal CMP, initial troponin is 0.072. He is started on heparin, given aspirin, started on IV nitroglycerin. Case is discussed with Dr. Allan covering for cardiology. Case discussed with Dr. Sage who will admit. On reevaluation patient is chest pain-free, mild chest discomfort, less than 1 out of 10. - Lab Data Result diagrams: 09/27/19 08:34 09/27/19 08:34 Lab Results 09/27/19 09/27/19 09/27/19 Range/Units 08:34 08:34 08:34 WBC 8.4 (3.8-10.6) k/uL RBC 5.07 (4.30-5.90) m/uL Hgb 15.2 (13.0-17.5) gm/dL Hct 45.6 (39.0-53.0) % MCV 90.1 (80.0-100.0) fL MCH 30.0 (25.0-35.0) pg MCHC 33.3 (31.0-37.0) g/dL RDW 13.4 (11.5-15.5) % Plt Count 324 (150-450) k/uL Neutrophils % 64 % Lymphocytes % 25 % Monocytes % 6 % Eosinophils % 2 % Basophils % 1 % Neutrophils # 5.4 (1.3-7.7) k/uL Lymphocytes # 2.1 (1.0-4.8) k/uL Monocytes # 0.5 (0-1.0) k/uL Eosinophils # 0.2 (0-0.7) k/uL Basophils # 0.1 (0-0.2) k/uL PT 10.1 (9.0-12.0) sec INR 1.0 (<1.2) APTT 24.3 (22.0-30.0) sec Sodium 140 (137-145) mmol/L Potassium 3.9 (3.5-5.1) mmol/L Chloride 102 (98-107) mmol/L Carbon Dioxide 29 (22-30) mmol/L Anion Gap 9 mmol/L BUN 22 H (9-20) mg/dL Creatinine 0.89 (0.66-1.25) mg/dL Est GFR (CKD-EPI)AfAm >90 (>60 ml/min/1.73 sqM) Est GFR (CKD-EPI)NonAf >90 (>60 ml/min/1.73 sqM) Glucose 103 H (74-99) mg/dL Calcium 9.1 (8.4-10.2) mg/dL Magnesium 1.7 (1.6-2.3) mg/dL Total Bilirubin 0.5 (0.2-1.3) mg/dL AST 23 (17-59) U/L ALT 16 (4-49) U/L Alkaline Phosphatase 91 (38-126) U/L Troponin I (0.000-0.034) ng/mL Total Protein 7.2 (6.3-8.2) g/dL Albumin 4.2 (3.5-5.0) g/dL 09/27/19 Range/Units 08:34 WBC (3.8-10.6) k/uL RBC (4.30-5.90) m/uL Hgb (13.0-17.5) gm/dL Hct (39.0-53.0) % MCV (80.0-100.0) fL MCH (25.0-35.0) pg MCHC (31.0-37.0) g/dL RDW (11.5-15.5) % Plt Count (150-450) k/uL Neutrophils % % Lymphocytes % % Monocytes % % Eosinophils % % Basophils % % Neutrophils # (1.3-7.7) k/uL Lymphocytes # (1.0-4.8) k/uL Monocytes # (0-1.0) k/uL Eosinophils # (0-0.7) k/uL Basophils # (0-0.2) k/uL PT (9.0-12.0) sec INR (<1.2) APTT (22.0-30.0) sec Sodium (137-145) mmol/L Potassium (3.5-5.1) mmol/L Chloride (98-107) mmol/L Carbon Dioxide (22-30) mmol/L Anion Gap mmol/L BUN (9-20) mg/dL Creatinine (0.66-1.25) mg/dL Est GFR (CKD-EPI)AfAm (>60 ml/min/1.73 sqM) Est GFR (CKD-EPI)NonAf (>60 ml/min/1.73 sqM) Glucose (74-99) mg/dL Calcium (8.4-10.2) mg/dL Magnesium (1.6-2.3) mg/dL Total Bilirubin (0.2-1.3) mg/dL AST (17-59) U/L ALT (4-49) U/L Alkaline Phosphatase (38-126) U/L Troponin I 0.072 H* (0.000-0.034) ng/mL Total Protein (6.3-8.2) g/dL Albumin (3.5-5.0) g/dL Critical Care Time Critical Care Time: Yes Total Critical Care Time: 35 Disposition Clinical Impression: Acute non-ST elevation myocardial infarction (NSTEMI) Disposition: ADMITTED IP TO THIS HOSP Condition: Stable Is patient prescribed a controlled substance at d/c from ED?: No Referrals: Phillip Camp MD [Primary Care Provider] - 1-2 days Decision to Admit Reason: Admit from EC Decision Date: 09/27/19 Decision Time: 10:10
[2019-09-27 08:52] LABS: Basophils # (A) 0.1 k/uL (0-0.2); Basophils % (A) 1 %; Eosinophils # (A) 0.2 k/uL (0-0.7); Eosinophils % (A) 2 %; HCT 45.6 % (39.0-53.0); HGB 15.2 gm/dL (13.0-17.5); Lymphocytes # (A) 2.1 k/uL (1.0-4.8); Lymphocytes % (A) 25 %; MCHC 33.3 g/dL (31.0-37.0); MCV 90.1 fL (80.0-100.0); Monocytes # (A) 0.5 k/uL (0-1.0); Monocytes % (A) 6 %; Neutrophils # (A) 5.4 k/uL (1.3-7.7); Neutrophils % (A) 64 %; Platelet Count 324 k/uL (150-450); RBC 5.07 m/uL (4.30-5.90); RDW 13.4 % (11.5-15.5); WBC 8.4 k/uL (3.8-10.6)
--- NOTE | 2019-09-27 08:59 | XR ---
EXAMINATION TYPE: XR chest 2V DATE OF EXAM: 09/27/2019 CLINICAL HISTORY: Chest pain. His trip hypertension. TECHNIQUE: Frontal and lateral views of the chest are obtained. COMPARISON: Chest radiograph 07/16/2018 FINDINGS: The cardiomediastinal silhouette is within normal limits for size. Pulmonary vasculature i s normal. There is no focal air space opacity, pleural effusion, or pneumothorax seen. The osseous st ructures are intact. IMPRESSION: No acute cardiopulmonary process.
[2019-09-27 09:04] LABS: ALT 16 U/L (4-49); AST 23 U/L (17-59); African American GFR (CKD) >90 (>60 ml/min/1.73 sqM); Albumin 4.2 g/dL (3.5-5.0); Alkaline Phosphatase 91 U/L (38-126); Anion Gap 9 mmol/L; Blood Urea Nitrogen 22 mg/dL (9-20); Calcium 9.1 mg/dL (8.4-10.2); Carbon Dioxide 29 mmol/L (22-30); Chloride 102 mmol/L (98-107); Glucose 103 mg/dL (74-99); Magnesium 1.7 mg/dL (1.6-2.3); Non-African American GFR(CKD) >90 (>60 ml/min/1.73 sqM); Potassium 3.9 mmol/L (3.5-5.1); Sodium 140 mmol/L (137-145); Total Bilirubin 0.5 mg/dL (0.2-1.3); Total Protein 7.2 g/dL (6.3-8.2)
[2019-09-27 09:05] LABS: Partial Thromboplastin Time 24.3 sec (22.0-30.0); Prothrombin Time 10.1 sec (9.0-12.0)
[2019-09-27] MEDS ORDERED: HEPARIN SODIUM,PORCINE 5,000 UNIT/ML 1 ML VIAL IV PRN (10:00)
[2019-09-27] MEDS ORDERED: HEPARIN SODIUM,PORCINE 5,000 UNIT/ML 1 ML VIAL IV ONE (10:00)
[2019-09-27] MEDS ORDERED: ASPIRIN 325 MG TAB PO STA ×2 (10:00→11:02)
[2019-09-27] MEDS ORDERED: NITROGLYCERIN-D5W PMX 50 MG in DEXTROSE/WATER 1 250ML.BAG IV ONE (10:02)
[2019-09-27] MEDS: HEPARIN SOD,PORK IN 0.45% NACL 25,000 UNIT in 0.45% NACL 1 250ML.BAG IV SCH (10:45)
[2019-09-27] MEDS ORDERED: ALPRAZolam 0.5 MG TAB PO PRN (11:02)
[2019-09-27] MEDS ORDERED: ATORVASTATIN 80 MG TAB PO STA (11:02)
[2019-09-27] MEDS ORDERED: NITROGLYCERIN SL TABS 0.4 MG TAB SUBLINGUAL PRN (11:02)
[2019-09-27] MEDS ORDERED: ALPRAZolam 0.25 MG TAB PO PRN (11:02)
[2019-09-27] MEDS ORDERED: SODIUM CHLORIDE 0.9% 1,000 ML in EMPTY BAG 1 BAG IV ONE (11:02)
[2019-09-27] MEDS ORDERED: VERAPAMIL 2.5 MG/ML 2 ML AMP ONE (12:26)
[2019-09-27] MEDS ORDERED: IV FLUID CONTINUATION 1,000 ML IV ONE (12:30)
--- NOTE | 2019-09-27 12:44 | CONS ---
CONSULTATION Mr. Morrell is a 53-year-old male with a known history of hypertension, hyperlipidemia, strong family history of premature coronary artery disease who presented to the emergency room with symptoms of chest discomfort. He presented to the emergency room with an episode of chest discomfort, radiating to both arms. His discomfort occurred when he was trying to exercise on his bike. He denies any dizziness or palpitation. He has some dyspnea. No PND, orthopnea, or peripheral edema. No syncope. He has no prior documented history of coronary artery disease. He is followed by Dr. Brii Kasper on a regular basis, had a myocardial perfusion imaging in July that revealed no evidence of inducible ischemia. His left ventricular systolic function in the past was normal. His coronary risk factors are remarkable for hyperlipidemia and hypertension. MEDICATION: At home including hydrochlorothiazide, verapamil, Lasix 40 mg daily, Lipitor 20 mg daily. REVIEW OF SYSTEMS: RESPIRATORY SYSTEM: He has no documented history of asthma, emphysema or bronchitis. GI SYSTEM: No recent GI bleeding, no peptic ulcer disease. SYSTEM: No dysuria or hematuria. NERVOUS SYSTEM: No stroke or seizure. PHYSICAL EXAMINATION: He is a 53-year-old male, alert, oriented, in no apparent distress. Blood pressure 128/80 with a heart rate in the 60s. HEAD: Normocephalic. EYES; Sclerae nonicteric. NECK: Good upstroke, no jugular venous distention. LUNGS: Clear to auscultation. HEART: Regular rate and rhythm, S1, S2. No S3. No S4 with a systolic ejection murmur, no diastolic murmur. ABDOMEN: Soft, obese, nontender. EXTREMITIES: Trace edema with intact distal pulses. LAB DATA: BUN and creatinine 22 and 0.89. Troponin 0.072, potassium 3.9, hemoglobin of 15.2. EKG revealed a sinus mechanism with an incomplete right bundle branch block. IMPRESSION: 1. Non ST-segment elevation myocardial infarction. 2. Hypertension. 3. Hyperlipidemia. 4. Obesity. RECOMMENDATION: I recommend proceeding with coronary angiography to assess his status and guide his treatment. The rationale behind the procedure as well as risks and complication were discussed with the patient, who is in full understanding and agreement. The patient will undergo the procedure with Dr. Kasper who is his primary insurance claims examiner. Thank you for this consult. Will follow with you. MMODL / IJN: [id number] /
[2019-09-27] MEDS ORDERED: MIDAZOLAM 2 MG/2 ML VIAL IVP ONE (12:53)
[2019-09-27] MEDS ORDERED: LIDOCAINE 1% INJ 10MG/ML (20 ML MDV) SQ ONE (12:57)
[2019-09-27] MEDS ORDERED: VERAPAMIL SYRINGE (5 MG/10 ML) INTRAARTER ONE (13:01)
[2019-09-27] MEDS: HEPARIN SODIUM 1,000 UN/ML (10ML VL) ONE ×2 (13:19→13:32)
[2019-09-27] MEDS ORDERED: TIROFIBAN BOLUS 12.5MG/250 ML BAG IV ONE (13:19)
[2019-09-27] MEDS ORDERED: NS IV ONE (13:20)
[2019-09-27] MEDS ORDERED: TIROFIBAN 12.5 MG IV ONE (13:20)
[2019-09-27] MEDS ORDERED: TICAGRELOR 90 MG TAB ONE (13:28)
[2019-09-27] MEDS ORDERED: TICAGRELOR 90 MG TAB PO ONE (13:32)
[2019-09-27] MEDS ORDERED: NITROGLYCERIN 1000MCG/10ML SYRINGE INTRACORON ONE (13:34)
[2019-09-27] MEDS: HYDROmorphone 1 MG/ML 1 ML SYRINGE IVP ONE ×2 (13:38→13:41)
[2019-09-27] MEDS ORDERED: IOPAMIDOL-370 100ML BTL INJ ONE ×2 (13:38→13:41)
[2019-09-27] MEDS ORDERED: ZOLPIDEM 5 MG TAB PO PRN (14:25)
[2019-09-27] MEDS ORDERED: RX INFO: IV CONTRAST WAS GIVEN 1 EACH MISC MISCELLANE PRN (14:25)
[2019-09-27] MEDS ORDERED: MAG HYDROX/AL HYDROX/SIMETH 30 ML CUP PO PRN (14:25)
[2019-09-27] MEDS ORDERED: ATROPINE SULFATE 0.1 MG/ML 10ML SYRINGE IV PRN (14:25)
--- NOTE | 2019-09-27 15:17 | CC ---
CARDIAC CATHETERIZATION REPORT DATE OF SERVICE: 09/27/2019 PROCEDURE: 1. Left heart catheterization and coronary angiography. 2. PTCA and stenting of proximal LAD with a drug-eluting stent. PERFORMED BY: Dr. Brii Kasper. Moderate conscious sedation time was 54 minutes. CLINICAL INFORMATION: Mr. Basim Morrell is a 53-year-old obese gentleman with hypertension, hyperlipidemia, who recently had a stress test about 6 weeks ago that was negative. This was a Lexiscan stress test. He presented to the hospital with relatively sudden onset of severe chest discomfort and was found to have mild troponin elevation. He was advised cardiac cath after evaluation by Dr. Allan in the ICU in the ER. PROCEDURE NOTE: Under local anesthesia and strict aseptic precautions, a 6-Bengali introducer was placed in the right radial artery. Using a 3.5 and JR4 catheters, I performed coronary angiography and also with the same right catheter I checked LV pressures. LV gram was not performed. The patient had a significant proximal LAD lesion of 90% with thrombus. He was advised intervention that was performed expeditiously. Following the intervention, a TR band was applied as per protocol with good hemostasis and saturation in the fingers of the right hand was more than 90%. CARDIAC CATHETERIZATION FINDINGS: The left ventricular end-diastolic pressure was about 8-10 mmHg without any gradient across the aortic valve. CORONARY ANGIOGRAPHY FINDINGS: RIGHT CORONARY ARTERY: Large dominant vessel. No significant disease, distally bifurcates into a PDA, PLV, supplies a sizable amount of myocardium. The RCA is a dominant disease-free vessel. LEFT MAIN CORONARY ARTERY: Short, patent, disease-free vessel that bifurcates into LAD and circumflex. LEFT ANTERIOR DESCENDING CORONARY ARTERY: Good caliber vessel gives off a high first diagonal branch and a small tiny septal branch and after this there is an area of disease which is long, hazy with thrombus of about 95% and from this diseased area comes another large and another small septal branch. After the diseased area, a small diagonal branch comes off, vessel runs all the way to the apex, but the flow is sluggish distally. The proximal LAD therefore has a 95% lesion with thrombus and also is a large septal branch. LEFT POSTERIOR CIRCUMFLEX CORONARY ARTERY: A nondominant vessel gives off a single large obtuse marginal that runs laterally and an AV groove branch which is free of significant disease. No significant disease in the circumflex system. FINAL IMPRESSION: This patient has a right dominant system. He has a 95% proximal LAD in with thrombus, which is the culprit lesion. There is a somewhat sluggish flow in the distal LAD. Circumflex nondominant is free of significant disease. No gradient across aortic valve. Normal filling pressures. RECOMMENDATIONS: I recommended PCI of LAD and perform this in the same setting. PCI PROCEDURE DETAILS: I used a JL4 guide catheter of 6-Bengali caliber, a run-through wire. Patient received heparin and Brilinta. His ACT was 225 and then went up to 275. I pre-dilated the lesion with a 3.0 caliber 15 trek balloon. I then deployed a 23 mm long 4.0 caliber Xience stent. Patient had chest pain and precordial ST elevation. Excellent angiographic result without complication was achieved. The sheath was then taken out and TR band applied as per protocol. Results were discussed with the patient as well as his sister and he was sent to the room in a stable condition. Excellent angiographic result without complication was achieved of the LAD. No significant disease in the circumflex or RCA. MMODL / IJN: [id number] /
[2019-09-27] MEDS: TIROFIBAN 12.5MG-250ML NS 250 ML IV SCH (16:06)
[2019-09-27] MEDS: SODIUM CHLORIDE 0.9% 1,000 ML IV SCH (16:06)
--- NOTE | 2019-09-27 17:55 | ECHOF ---
Referral Reason:NSTEMI MEASUREMENTS -------- HEIGHT: 180.3 cm WEIGHT: 141.5 kg BP: 112/75 RVIDd: 3.3 cm (< 3.3) IVSd: 1.4 cm (0.6 - 1.1) LVIDd: 5.1 cm (3.9 - 5.3) LVPWd: 1.4 cm (0.6 - 1.1) IVSs: 1.9 cm LVIDs: 3.2 cm LVPWs: 1.9 cm LA Diam: 3.6 cm (2.7 - 3.8) LAESV Index (A-L): 29.41 ml/m Ao Diam: 3.7 cm (2.0 - 3.7) AV Cusp: 2.3 cm (1.5 - 2.6) MV EXCURSION: 22.560 mm (> 18.000) MV EF SLOPE: 102 mm/s (70 - 150) EPSS: 0.4 cm MV E Cristo: 0.78 m/s MV DecT: 177 ms MV A Cristo: 0.58 m/s MV E/A Ratio: 1.34 FINDINGS -------- Sinus rhythm. This was a technically adequate study. The left ventricular size is normal. There is moderate concentric left ventricular hypertrophy. O verall left ventricular systolic function is low-normal with, an EF between 50 - 55 %. Mid anterior LV wall motion is hypokinetic. The right ventricle is normal in size. LA is midly dilated 29-33ml/m2. The right atrial size is normal. Interatrial and interventricular septum intact. The aortic valve is trileaflet, and appears structurally normal. No aortic stenosis or regurgitation. The mitral valve is normal. Mild mitral regurgitation is present. The tricuspid valve appears structurally normal. Trace/mild (physiologic) pulmonic regurgitation. The aortic root size is normal. Normal inferior vena cava with normal inspiratory collapse consistent with estimated right atrial pre ssure of 5 mmHg. There is no pericardial effusion. CONCLUSIONS -------- 1. There is moderate concentric left ventricular hypertrophy. 2. Overall left ventricular systolic function is low-normal with, an EF between 50 - 55 %. 3. Mid anterior LV wall motion is hypokinetic. 4. LA is midly dilated 29-33ml/m2. 5. The aortic valve is trileaflet, and appears structurally normal. No aortic stenosis or regurgitati on. 6. Mild mitral regurgitation is present. 7. Trace/mild (physiologic) pulmonic regurgitation. 8. There is no pericardial effusion. VPK TEACHER: Alisa Gusman RDCS
[2019-09-27] MEDS: TICAGRELOR 90 MG TAB PO SCH (21:09)
[2019-09-27] MEDS: METOPROLOL TARTRATE 25 MG TAB PO SCH (21:09)
[2019-09-27] MEDS: ATORVASTATIN 20 MG TAB PO SCH (21:10)
[2019-09-27] MEDS: VERAPAMIL SR 120 MG TABLET.ER PO SCH (21:57)
--- NOTE | 2019-09-27 22:21 | P.HPIM ---
History of Present Illness H&P Date: 09/27/19 Chief Complaint: Non-STEMI, hypertension, hyperlipidemia and obesity 53-year-old mildly be one of Dr. cheung's patient with past medical history of hypertension hyperlipidemia and arrhythmia who is known to have history of chronic lower back pain and severe osteoarthritis who also has history of obstructive sleep apnea who developed to have midsternal chest pain on and off s tarted at 7:00 in the morning today had close to 5 episodes each one of them lasted over 10 minutes of the time was associated with mild perfuse sweating palpitation mild nausea and shooting pain to the back developed to have significant shortness of breath with symptoms. Ended up coming to the emergency department at [facility] where was seen and evaluated his troponin was elevated initially at 0.07 patient was taken to the ammunition assembly laborer with Dr. ARTEM cabrales was been following him from cardiology since last year apparently had perfusion stress test in July showed no evidence of induced ischemic event. Patient ended up going for heart cath showed 95% proximal LAD with thrombus ended up going for PCI of the LAD with stent placement. Procedure was successful patient was admitted to the floor afterward start secondary prevention he is more comfortable his procedure was done from the right radius artery with no sign of bleeding. Review of Systems CONSTITUTIONAL: Well-developed no acute respiratory distress. EYES: No icterus sclerae, no conjunctivitis. EARS, NOSE, MOUTH, THROAT, and FACE: No sore throat, lymphadenopathy, carotid bruits or deformity. RESPIRATORY: Positive mild shortness of breath no cough wheezes. CARDIOVASCULAR: Positive PND return to palpitation and angina with worsening chest pain especially midsternum with burning sensation radiating toward both upper extremities. GASTROINTESTINAL: No Abd pain, Nausea or vomiting, no Diarrhea or constipation, No GI Bleed, no distention or masses. GENITOURINARY: Negative for Hematuria or UTI, no kidney stones. INTEGUMENT/BREAST: Negative for any muscular injury with mild osteoarthritis.. HEMATOLOGIC/LYMPHATIC: Negative for bleed or purpura. MUSCULOSKELTAL: Negative for Myalgia or arthralgia. NEURLOGICAL: No LOC, Sz or syncope, blurred vision dizziness or abnormality.. BEHAVIORAL/PSYCH: Negative. ENDOCRINE: Negative. 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 Past Medical History Past Medical History: Hyperlipidemia, Hypertension, Osteoarthritis (OA), Skin Disorder Additional Past Medical History / Comment(s): Psoriasis. History of Any Multi-Drug Resistant Organisms: None Reported Past Surgical History: Hernia Repair Additional Past Surgical History / Comment(s): COLONOSCOPY Past Anesthesia/Blood Transfusion Reactions: No Reported Reaction Past Psychological History: No Psychological Hx Reported Smoking Status: Never smoker Past Alcohol Use History: None Reported Past Drug Use History: None Reported - Past Family History Mother Family Medical History: Cancer Additional Family Medical History / Comment(s): COLON CANCER Father Family Medical History: Cancer Additional Family Medical History / Comment(s): LUNG AND BONE CANCER Medications and Allergies Home Medications Medication Instructions Recorded Confirmed Type hydroCHLOROthiazide [Hydrodiuril] 25 mg PO DAILY 12/18/17 09/27/19 History Atorvastatin [Lipitor] 20 mg PO HS 09/27/19 09/27/19 History Furosemide [Lasix] 40 mg PO DAILY 09/27/19 09/27/19 History Verapamil HCl [Verapamil ER] 120 mg PO HS 09/27/19 09/27/19 History buPROPion XL [Wellbutrin Xl] 150 mg PO DAILY 09/27/19 09/27/19 History Allergies Allergy/AdvReac Type Severity Reaction Status Date / Time Penicillins Allergy SEIZURE Verified 09/27/19 09:32 Physical Exam Vitals: Vital Signs Temp Pulse Pulse Resp BP BP Pulse Ox 09/27/19 15:41 98.3 F 60 116/67 99 09/27/19 15:00 63 16 145/87 99 09/27/19 14:30 57 L 16 126/70 100 09/27/19 14:15 58 L 16 140/77 100 09/27/19 14:00 61 16 141/77 100 09/27/19 12:00 19 112/75 98 09/27/19 11:30 58 L 12 126/83 09/27/19 11:00 16 127/83 99 09/27/19 10:30 60 15 133/87 98 09/27/19 10:00 59 L 18 128/82 98 09/27/19 09:30 57 L 13 119/79 100 09/27/19 09:00 58 L 16 107/89 99 09/27/19 08:30 61 15 132/84 100 09/27/19 08:00 66 14 140/84 100 09/27/19 07:59 98.5 F 67 18 140/84 100 Intake and Output 09/27/19 09/27/19 09/27/19 06:59 14:59 22:59 Intake Total 300 Balance 300 Intake: IV 300 Other: # Voids 1 Weight 141.521 kg General Appearance: Alert, cooperative, no distress, obese looks comfortable. Neck HEENT: Supple, no lymphadenopathy, no thyroid enlargement, no carotid bruits. Lungs: Clear to auscultation without crackles or wheezes no rhonchi, no deformity. Chest Wall: Chest wall normal expansion with deep inspiration no tenderness and no deformity was found on exam, no costochondral pain or discomfort. Heart: Regular rate and rhythm, S1, S2 normal, no murmur, rub or gallop. Back: Symmetric, no curvature, ROM normal, no CVA tenderness. Abdomen: Soft, non-tender, bowel sounds active all four quadrants, no masses, no organomegaly. Extremities: Extremities normal, atraumatic, no cyanosis or edema. Right radius still have compression over his radius artery with no sign of bleeding. Pulses: 2+ and symmetric. Skin: Skin color, texture, tugor normal, no rashes or lesions. Neurologic: Alert oriented x3 cranial nerves II through XII intact, no motor deficit, no abnormal balance or gait. Results CBC & Chem 7: 09/27/19 08:34 09/27/19 08:34 Labs: Abnormal Lab Results - Last 24 Hours (Table) 09/27/19 09/27/19 09/27/19 Range/Units 08:34 08:34 11:23 BUN 22 H (9-20) mg/dL Glucose 103 H (74-99) mg/dL Troponin I 0.072 H* 0.100 H* (0.000-0.034) ng/mL 09/27/19 Range/Units 14:54 BUN (9-20) mg/dL Glucose (74-99) mg/dL Troponin I 0.267 H* (0.000-0.034) ng/mL Thrombosis Risk Factor Assmnt - DVT/VTE Prophylaxis DVT/VTE Prophylaxis: Pharmacologic Prophylaxis ordered, Mechanical Prophylaxis ordered Assessment and Plan Assessment: 1 acute non-ST PR: Patient had a heart cath with angioplasty of the LAD with successful echocardiogram will be done, continue to follow with cardiology, continue secondary prevention. 2 hypertension: Continue Hyzaar 50/12.5 mg daily along with metoprolol 25 g twice a day and verapamil SR 120 mg daily. 3 hyperlipidemia: Patient is on atorvastatin 20 mg a day might be titrated increased to 40 mg daily. 4 arrhythmia: Mostly PVCs and mild tachycardia, has been doing well on metoprolol and verapamil. 5 anticoagulation: Patient will be on Brilinta 90 mg twice a day continue antiplatelet agent for 1 year continue aspirin as well. 6 depression: Continue patient on Wellbutrin 150 mg daily still on alprazolam an as-needed basis. 7 GI prophylaxis: Patient will be on Pepcid 20 mg daily. 8 hyperglycemia: On diet control only. 9 obstructive sleep apnea: Should be on CPAP. 10 CODE STATUS: Full code. Admit patient to inpatient service for more than 2 night stay.
[2019-09-28] MEDS: TIROFIBAN 12.5MG-250ML NS 250 ML IV SCH ×2 (00:11→07:53)
[2019-09-28] MEDS: SODIUM CHLORIDE 0.9% 1,000 ML IV SCH (00:12)
[2019-09-28 06:01] LABS: Basophils % (A) 1 %; Eosinophils # (A) 0.1 k/uL (0-0.7); Eosinophils % (A) 2 %; HCT 43.7 % (39.0-53.0); HGB 14.1 gm/dL (13.0-17.5); Lymphocytes # (A) 1.6 k/uL (1.0-4.8); Lymphocytes % (A) 20 %; MCH 29.3 pg (25.0-35.0); MCHC 32.3 g/dL (31.0-37.0); MCV 90.6 fL (80.0-100.0); Mean Platelet Volume 6.8; Monocytes # (A) 0.5 k/uL (0-1.0); Monocytes % (A) 7 %; Neutrophils # (A) 5.5 k/uL (1.3-7.7); Neutrophils % (A) 69 %; Platelet Count 316 k/uL (150-450); RBC 4.83 m/uL (4.30-5.90); RDW 13.5 % (11.5-15.5); WBC 7.9 k/uL (3.8-10.6)
[2019-09-28 06:10] LABS: African American GFR (CKD) >90 (>60 ml/min/1.73 sqM); Anion Gap 6 mmol/L; Blood Urea Nitrogen 15 mg/dL (9-20); Calcium 8.5 mg/dL (8.4-10.2); Carbon Dioxide 27 mmol/L (22-30); Chloride 104 mmol/L (98-107); Cholesterol 149 mg/dL (<200); Glucose 104 mg/dL (74-99); HDL Cholesterol 35 mg/dL (40-60); LDL Cholesterol,Calculated 100 mg/dL (0-99); Non-African American GFR(CKD) >90 (>60 ml/min/1.73 sqM); Potassium 3.6 mmol/L (3.5-5.1); Sodium 137 mmol/L (137-145); Triglycerides 72 mg/dL (<150)
[2019-09-28] MEDS ORDERED: ASPIRIN 325 MG TAB PO SCH (09:00)
[2019-09-28] MEDS: TICAGRELOR 90 MG TAB PO SCH ×2 (09:00→21:03)
[2019-09-28] MEDS: METOPROLOL TARTRATE 25 MG TAB PO SCH ×2 (09:00→21:02)
[2019-09-28] MEDS ORDERED: ATORVASTATIN 80 MG TAB PO SCH (09:00)
[2019-09-28] MEDS: FAMOTIDINE 20 MG TAB PO SCH (09:00)
[2019-09-28] MEDS: ASPIRIN 81 MG PO SCH (09:00)
[2019-09-28] MEDS: HEPARIN SOD,PORK IN 0.45% NACL 25,000 UNIT in 0.45% NACL 1 250ML.BAG IV SCH (09:00)
[2019-09-28] MEDS: buPROPion XL 150 MG TAB.ER.24H PO SCH (10:52)
[2019-09-28] MEDS: LOSARTAN-HCTZ 50-12.5 MG 1 EACH TAB PO SCH (10:52)
[2019-09-28 11:31] VITALS: BMI 43.8
--- NOTE | 2019-09-28 11:35 | P.PN ---
Subjective Progress Note Date: 09/28/19 53-year-old mildly be one of Dr. cheung's patient with past medical history of hypertension hyperlipidemia and arrhythmia who is known to have history of chronic lower back pain and severe osteoarthritis who also has history of obstructive sleep apnea who developed to have midsternal chest pain on and off started at 7:00 in the morning today had close to 5 episodes each one of them lasted over 10 minutes of the time was associated with mild perfuse sweating palpitation mild nausea and shooting pain to the back developed to have significant shortness of breath with symptoms. Ended up coming to the emergency department at [facility] where was seen and evaluated his troponin was elevated initially at 0.07 patient was taken to the organic lab worker with Dr. ARTEM cabrales was been following him from cardiology since last year apparently had perfusion stress test in July showed no evidence of induced ischemic event. Patient ended up going for heart cath showed 95% proximal LAD with thrombus ended up going for PCI of the LAD with stent placement. Procedure was successful patient was admitted to the floor afterward start secondary prevention he is more comfortable his procedure was done from the right radius artery with no sign of bleeding. 09/27: Echocardiogram reveals EF of 50-55%, moderate concentric left hypertrophy, mild mitral regurgitation. Lab work this morning reveals CBC unremarkable, electrolytes and renal function normal, blood sugar 104, troponin 3.220. Patient denies having any chest pain or shortness of breath. He has been ambulating in his room without difficulty. Review of Systems CONSTITUTIONAL: Well-developed no acute respiratory distress. Denies fever, denies chills. EYES: No icterus sclerae, no conjunctivitis. EARS, NOSE, MOUTH, THROAT, and FACE: No sore throat, lymphadenopathy, carotid bruits or deformity. RESPIRATORY: Denies shortness of breath no cough wheezes. CARDIOVASCULAR: Denies chest pain, denies edema. GASTROINTESTINAL: No Abd pain, Nausea or vomiting, no Diarrhea or constipation, No GI Bleed, no distention or masses. GENITOURINARY: Negative for Hematuria or UTI, no kidney stones. INTEGUMENT/BREAST: Negative for any muscular injury with mild osteoarthritis.. HEMATOLOGIC/LYMPHATIC: Negative for bleed or purpura. MUSCULOSKELTAL: Negative for Myalgia or arthralgia. NEURLOGICAL: No LOC, Sz or syncope, blurred vision dizziness or abnormality.. BEHAVIORAL/PSYCH: Negative. ENDOCRINE: Negative. Physical examination General Appearance: Alert, cooperative, no distress, obese looks comfortable. Patient is resting in bed and appears to be in no acute distress. Neck HEENT: Supple, no lymphadenopathy, no thyroid enlargement, no carotid bruits. Lungs: Clear to auscultation without crackles or wheezes no rhonchi, no deformity. Chest Wall: Chest wall normal expansion with deep inspiration no tenderness and no deformity was found on exam, no costochondral pain or discomfort. Heart: Regular rate and rhythm, S1, S2 normal, no murmur, rub or gallop. Back: Symmetric, no curvature, ROM normal, no CVA tenderness. Abdomen: Soft, non-tender, bowel sounds active all four quadrants, no masses, no organomegaly. Extremities: Extremities normal, atraumatic, no cyanosis or edema. Right radius still have compression over his radius artery with no sign of bleeding. Pulses: 2+ and symmetric. Skin: Skin color, texture, tugor normal, no rashes or lesions. Neurologic: Alert oriented x3 cranial nerves II through XII intact, no motor deficit, no abnormal balance or gait. Assessment and plan 1 acute non-ST OR: Patient had a heart cath with angioplasty of the LAD with successful echocardiogram as above, continue to follow with cardiology, continue secondary prevention. 2 hypertension: Continue Hyzaar 50/12.5 mg daily along with metoprolol 25 g twice a day and verapamil SR 120 mg daily. 3 hyperlipidemia: Patient is on atorvastatin 20 mg a day might be titrated increased to 40 mg daily. 4 arrhythmia: Mostly PVCs and mild tachycardia, has been doing well on metoprolol and verapamil. 5 anticoagulation: Patient will be on Brilinta 90 mg twice a day continue antiplatelet agent for 1 year continue aspirin as well. 6 recurrent depression: Continue patient on Wellbutrin 150 mg daily still on alprazolam an as-needed basis. 7 GI prophylaxis: Patient will be on Pepcid 20 mg daily. 8 hyperglycemia: On diet control only. 9 obstructive sleep apnea: Should be on CPAP. 10 CODE STATUS: Full code. Discharge plan: Home tomorrow Impression and plan of care have been directed as dictated by the signing physician. Dinora Swanson nurse practitioner acting as scribe for signing physician. Objective - Vital Signs Vital signs: Vital Signs Temp 98.2 F 09/27/19 20:00 Pulse 52 L 09/28/19 04:00 Resp 18 09/28/19 04:00 BP 105/68 09/28/19 04:00 Pulse Ox 98 09/28/19 04:00 Intake & Output 09/27/19 09/28/19 09/28/19 18:59 06:59 18:59 Intake Total 300 240 Balance 300 240 Weight 141.521 kg 142.5 kg Intake: IV 300 Oral 240 Other: Voiding Method Toilet # Voids 1 1 - Labs CBC & Chem 7: 09/29/19 05:27 09/28/19 05:43 Labs: Abnormal Lab Results - Last 24 Hours (Table) 09/27/19 09/27/19 09/27/19 Range/Units 08:34 08:34 11:23 BUN 22 H (9-20) mg/dL Glucose 103 H (74-99) mg/dL Troponin I 0.072 H* 0.100 H* (0.000-0.034) ng/mL LDL Cholesterol, Calc (0-99) mg/dL HDL Cholesterol (40-60) mg/dL 09/27/19 09/28/19 09/28/19 Range/Units 14:54 05:43 05:43 BUN (9-20) mg/dL Glucose 104 H (74-99) mg/dL Troponin I 0.267 H* 3.220 H* (0.000-0.034) ng/mL LDL Cholesterol, Calc 100 H (0-99) mg/dL HDL Cholesterol 35 L (40-60) mg/dL
--- NOTE | 2019-09-28 13:52 | P.PN ---
Subjective Progress Note Date: 09/28/19 this is a pleasant 53-year-old gentleman with a history of hypertension, hyperlipidemia and a strong family history of premature coronary artery disease who presented to the emergency department with symptoms of chest discomfort after riding his bike. The pain also radiated to both arms. He did have some dyspnea with this. His troponins came back to be elevated and he was subsequently recommended to undergo coronary angiography which was done yesterday by Dr. ARTEM Kasper. This showed a proximal LAD lesion of 90% with thrombus and he subsequently underwent stenting of that vessel. echocardiogram with Doppler study done yesterday showed a low normal, mid anterior LV wall hypokinesis and mild MR. he is currently on aspirin, Lipitor, metoprolol and Brilinta. He is overall feeling much better today. his labs and vital signs have been stable. Objective - Vital Signs Vital signs: Vital Signs Temp 97.4 F L 09/28/19 08:00 Pulse 58 L 09/28/19 08:00 Resp 18 09/28/19 04:00 BP 123/75 09/28/19 08:00 Pulse Ox 97 09/28/19 08:00 Intake & Output 09/27/19 09/28/19 09/28/19 18:59 06:59 18:59 Intake Total 300 240 120 Balance 300 240 120 Weight 141.521 kg 142.5 kg 142.5 kg Intake: IV 300 Oral 240 120 Other: Voiding Method Toilet # Voids 1 1 1 - Exam PHYSICAL EXAMINATION: HEENT: [Head is atraumatic, normocephalic. Pupils equal, round. Neck is supple. There is no elevated jugular venous pressure.] HEART EXAMINATION: [Heart sounds regular, S1 and S2 normal. No murmur or gallop heard.] CHEST EXAMINATION:[ Lungs are clear to auscultation. No chest wall tenderness is noted on palpation or with deep breathing.] ABDOMEN: [ Soft, nontender. Bowel sounds are heard. No organomegaly noted]. EXTREMITIES:[ 2+ peripheral pulses with evidence of trace peripheral edema and no calf tenderness noted. right radial puncture site without ecchymosis or hematoma, pulses strong.. NEUROLOGIC [patient is awake, alert and oriented x3.] . - Labs CBC & Chem 7: 09/28/19 05:43 09/28/19 05:43 Labs: Abnormal Lab Results - Last 24 Hours (Table) 09/27/19 09/28/19 09/28/19 Range/Units 14:54 05:43 05:43 Glucose 104 H (74-99) mg/dL Troponin I 0.267 H* 3.220 H* (0.000-0.034) ng/mL LDL Cholesterol, Calc 100 H (0-99) mg/dL HDL Cholesterol 35 L (40-60) mg/dL Assessment and Plan Assessment: #1 non-ST segment elevation FL, status post stenting of the proximal LAD #2 hypertension #3 hyperlipidemia #4 obesity #5 strong family history of premature coronary artery disease Plan: from cardiology's perspective medications were reviewed and we will continue the same. Increase the patient's activity. We anticipate the patient to be discharged in the next 24-48 hours. We will continue to follow the patient provide further recommendations accordingly. NDT INSPECTOR note has been reviewed, I agree with a documented findings and plan of care. Patient was seen and examined.
[2019-09-28] MEDS: ATORVASTATIN 20 MG TAB PO SCH (21:03)
[2019-09-28] MEDS: VERAPAMIL SR 120 MG TABLET.ER PO SCH (23:11)
[2019-09-29 04:32] VITALS: PULSE 50; RESP 17
[2019-09-29 06:27] LABS: Basophils # (A) 0.1 k/uL (0-0.2); Basophils % (A) 1 %; Eosinophils # (A) 0.2 k/uL (0-0.7); Eosinophils % (A) 3 %; HCT 41.7 % (39.0-53.0); HGB 13.5 gm/dL (13.0-17.5); Lymphocytes # (A) 1.6 k/uL (1.0-4.8); Lymphocytes % (A) 21 %; MCH 29.5 pg (25.0-35.0); MCHC 32.4 g/dL (31.0-37.0); Mean Platelet Volume 6.9; Monocytes # (A) 0.5 k/uL (0-1.0); Monocytes % (A) 6 %; Neutrophils % (A) 66 %; Platelet Count 288 k/uL (150-450); RBC 4.58 m/uL (4.30-5.90); RDW 13.5 % (11.5-15.5); WBC 7.6 k/uL (3.8-10.6)
[2019-09-29] MEDS: LOSARTAN-HCTZ 50-12.5 MG 1 EACH TAB PO SCH (08:50)
[2019-09-29] MEDS: ASPIRIN 81 MG PO SCH (08:50)
[2019-09-29] MEDS: FAMOTIDINE 20 MG TAB PO SCH (08:50)
[2019-09-29] MEDS: METOPROLOL TARTRATE 25 MG TAB PO SCH (08:50)
[2019-09-29] MEDS: TICAGRELOR 90 MG TAB PO SCH (08:51)
[2019-09-29] MEDS: buPROPion XL 150 MG TAB.ER.24H PO SCH (08:51)
[2019-09-29 09:31] VITALS: BP 98/54; TEMP 97.4
--- NOTE | 2019-09-29 09:52 | P.DS ---
Providers Date of admission: 09/27/19 10:03 Expected date of discharge: 09/29/19 Attending physician: Sumeet Sage Consults: 09/27/19 10:03 Consult Physician Urgent Consulting Provider: Rodger Allan Consult Reason/Comments: NSTEMI Do you want consulting provider notified?: Already Contacted 09/27/19 14:26 Consult Physician Routine Consulting Provider: Cardiology Tyesha Consult Reason/Comments: Post Interventional patient Do you want consulting provider notified?: Already Contacted [facility]: 53-year-old mildly be one of Dr. cheung's patient with past medical history of hypertension hyperlipidemia and arrhythmia who is known to have history of chronic lower back pain and severe osteoarthritis who also has history of ob structive sleep apnea who developed to have midsternal chest pain on and off started at 7:00 in the morning today had close to 5 episodes each one of them lasted over 10 minutes of the time was associated with mild perfuse sweating palpitation mild nausea and shooting pain to the back developed to have significant shortness of breath with symptoms. 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 ARTEM cabrales was been following him from cardiology since last year apparently had perfusion stress test in July showed no evidence of induced ischemic event. Patient ended up going for heart cath showed 95% proximal LAD with thrombus ended up going for PCI of the LAD with stent placement. Procedure was successful patient was admitted to the floor afterward start secondary prevention he is more comfortable his procedure was done from the right radius artery with no sign of bleeding. 09/27: Echocardiogram reveals EF of 50-55%, moderate concentric left hypertrophy, mild mitral regurgitation. Lab work this morning reveals CBC unremarkable, electrolytes and renal function normal, blood sugar 104, troponin 3.220. Patient denies having any chest pain or shortness of breath. He has been ambulating in his room without difficulty. 09/28: Patient denies having any chest pain or shortness of breath. No lightheadedness or dizziness. Patient has been ambulating without symptoms. Patient is afebrile, heart rate 58, blood pressure 90/54, pulse ox 96% on room air. Patient will be discharged home today once cleared by cardiology. Discharge diagnoses: 1 acute non-ST PA 2 hypertension 3 hyperlipidemia 4 arrhythmia: Mostly PVCs and mild tachycardia 5 anticoagulation with Brilinta 6 recurrent depression 7 hyperglycemia 8 obstructive sleep apnea Discharge plan: Home Impression and plan of care have been directed as dictated by the signing physician. Dinora Swanson nurse practitioner acting as scribe for signing physician. Patient Condition at Discharge: Good Plan - Discharge Summary Discharge Rx Participant: Yes New Discharge Prescriptions: New Aspirin 81 mg PO DAILY chew Ticagrelor [Brilinta] 90 mg PO BID #60 tab Losartan-Hctz 50-12.5 mg [Hyzaar 50-12.5] 1 each PO DAILY #30 tab Atorvastatin [Lipitor] 80 mg PO HS #30 tab Metoprolol Tartrate [Lopressor] 25 mg PO BID #60 tab Nitroglycerin Sl Tabs [Nitrostat] 0.4 mg SUBLINGUAL Q5M PRN #25 tab PRN Reason: Chest Pain Famotidine [Pepcid] 20 mg PO DAILY tab Continue buPROPion XL [Wellbutrin XL] 150 mg PO DAILY Verapamil HCl [Verapamil ER] 120 mg PO HS Furosemide [Lasix] 40 mg PO DAILY Discontinued hydroCHLOROthiazide [Hydrodiuril] 25 mg PO DAILY Atorvastatin [Lipitor] 20 mg PO HS Discharge Medication List Furosemide [Lasix] 40 mg PO DAILY 09/27/19 [History] Verapamil HCl [Verapamil ER] 120 mg PO HS 09/27/19 [History] buPROPion XL [Wellbutrin XL] 150 mg PO DAILY 09/27/19 [History] Aspirin 81 mg PO DAILY chew 09/29/19 [Rx] Atorvastatin [Lipitor] 80 mg PO HS #30 tab 09/29/19 [Rx] Famotidine [Pepcid] 20 mg PO DAILY tab 09/29/19 [Rx] Losartan-Hctz 50-12.5 mg [Hyzaar 50-12.5] 1 each PO DAILY #30 tab 09/29/19 [Rx] Metoprolol Tartrate [Lopressor] 25 mg PO BID #60 tab 09/29/19 [Rx] Nitroglycerin Sl Tabs [Nitrostat] 0.4 mg SUBLINGUAL Q5M PRN #25 tab 09/29/19 [Rx] Ticagrelor [Brilinta] 90 mg PO BID #60 tab 09/29/19 [Rx] Follow up Appointment(s)/Referral(s): Rodger Allan MD [STAFF PHYSICIAN] - 1 Week Phillip Camp MD [Primary Care Provider] - 1 Week Discharge Disposition: HOME SELF-CARE
--- NOTE | 2019-09-29 13:17 | PN ---
PROGRESS NOTE Mr. Morrell is a 53-year-old male who presented with unstable angina, underwent cardiac catheterization by Dr. Kasper, was found to have critical stenosis involving the LAD and underwent stenting of that vessel. He had evidence of non ST-segment elevation myocardial infarction by enzymes. He is doing well this morning. He is denying any chest pain. His breathing has been stable. He denies any dizziness or palpitation. He continues to be on aspirin once a day Lipitor 20 mg daily, losartan 50-12.5 mg daily, metoprolol tartrate 25 mg twice a day, Brilinta 90 mg twice a day and verapamil SR 120 mg daily. PHYSICAL EXAMINATION: Blood pressure running in the 90s with a heart rate in the 50s. LUNGS: Clear. Heart regular rate and rhythm S1, S2. No S3. No rub. ABDOMEN: Soft and nontender. EXTREMITIES: No edema. LAB DATA: Revealed a hemoglobin 13.5. IMPRESSION: 1. Non ST-segment elevation myocardial infarction, status post stenting of the LAD. 2. History of hypertension. 3. Hyperlipidemia. RECOMMENDATIONS: Patient will be discharged home today and followed as an outpatient with Dr. Kasper. I have discussed with the patient the findings and he is in full understanding and agreement. MMODL / IJN: [id number] /
[2019-09-29] MEDS ORDERED: ATORVASTATIN 40 MG TAB PO SCH (21:00)
== END 2019-09-29 13:21 | disposition home or self-care (01) | DRG 247 ==
LOC: EC 07:50 → 3SCARD 10:03
PROVIDERS: ADMIT Internal Medicine Geriatric Medicine; ATTEND Internal Medicine Geriatric Medicine
PROC: B2111ZZ Fluoroscopy of Multiple Coronary Arteries using Low Osmolar Contrast (ICD-10-PCS; principal; 2019-09-27 14:20)
PROC: 4A023N7 Measurement of Cardiac Sampling and Pressure, Left Heart, Percutaneous Approach (ICD-10-PCS; principal; 2019-09-27 14:20)
PROC: 027034Z Dilation of Coronary Artery, One Artery with Drug-eluting Intraluminal Device, Percutaneous Approach (ICD-10-PCS; principal; 2019-09-27 14:20)
DX: I21.4 Non-ST elevation (NSTEMI) myocardial infarction (principal); F33.9 Major depressive disorder, recurrent, unspecified; Z68.41 Body mass index [BMI] 40.0-44.9, adult; I25.110 Atherosclerotic heart disease of native coronary artery with unstable angina pectoris; I49.3 Ventricular premature depolarization; I10 Essential (primary) hypertension; G47.33 Obstructive sleep apnea (adult) (pediatric); E78.5 Hyperlipidemia, unspecified; E66.9 Obesity, unspecified; Z79.02 Long term (current) use of antithrombotics/antiplatelets; Z79.82 Long term (current) use of aspirin; Z79.899 Other long term (current) drug therapy; Z80.0 Family history of malignant neoplasm of digestive organs; Z80.1 Family history of malignant neoplasm of trachea, bronchus and lung; Z82.49 Family history of ischemic heart disease and other diseases of the circulatory system; L40.9 Psoriasis, unspecified; R00.0 Tachycardia, unspecified; Z80.8 Family history of malignant neoplasm of other organs or systems; M54.5 Low back pain
CPT/HCPCS: 36415; 71046; 80048; 80053; 80061; 83735; 84484; 85025; 85610; 85730; 93005; 93306; 93458; 96365; 96366; 96368; 96376; 99291

== ENCOUNTER 2020-06-09 17:55 | Observation (INO) | payer OTHER ==
--- NOTE | 2020-06-09 18:34 | ED ---
General Adult HPI - General Chief complaint: Arrhythmia/Palpitations Stated complaint: tachycardia Time Seen by Provider: 06/09/20 18:04 Source: patient, EMS, RN notes reviewed Mode of arrival: EMS Limitations: no limitations - History of Present Illness Initial comments: Patient is a pleasant 54-year-old male presenting to the emergency Department with palpitations. Patient was doing work on his deck with sudden onset. Patient states heart rate was up to 180 at home. Patient did bear down and heart rate improved to 150 however did not resolve. Patient did this several times. Patient does have history of similar symptoms twice previously asso ciated with SVT. Patient did need cardiac stents at one point secondary to heart attack. Patient denies ever having any chest discomfort. Patient states there may have been some mild associated dyspnea that has resolved. Patient is essentially symptom-free at this time. No leg pain or leg swelling. - Related Data Home Medications Medication Instructions Recorded Confirmed Furosemide [Lasix] 40 mg PO DAILY 09/27/19 06/09/20 Hydrochlorothiazide 12.5 mg PO DAILY 06/09/20 06/09/20 [hydroCHLOROthiazide] Losartan Potassium 50 mg PO DAILY 06/09/20 06/09/20 Potass Chlor Er (Uk Strength) 1 tab PO DAILY 06/09/20 06/09/20 Previous Rx's Medication Instructions Recorded Aspirin 81 mg PO DAILY chew 09/29/19 Atorvastatin [Lipitor] 80 mg PO HS #30 tab 09/29/19 Famotidine [Pepcid] 20 mg PO DAILY tab 09/29/19 Metoprolol Tartrate [Lopressor] 25 mg PO BID #60 tab 09/29/19 Nitroglycerin Sl Tabs [Nitrostat] 0.4 mg SUBLINGUAL Q5M PRN #25 tab 09/29/19 Ticagrelor [Brilinta] 90 mg PO BID #60 tab 09/29/19 Allergies Allergy/AdvReac Type Severity Reaction Status Date / Time Penicillins Allergy SEIZURE Verified 06/09/20 18:45 Review of Systems ROS Statement: Those systems with pertinent positive or pertinent negative responses have been documented in the HPI. ROS Other: All systems not noted in ROS Statement are negative. Constitutional: Denies: fever Eyes: Denies: eye pain ENT: Denies: ear pain Respiratory: Denies: cough Cardiovascular: Reports: palpitations. Denies: chest pain Endocrine: Denies: fatigue Gastrointestinal: Denies: abdominal pain Genitourinary: Denies: dysuria Musculoskeletal: Denies: back pain Skin: Denies: rash Neurological: Denies: weakness Past Medical History Past Medical History: Hyperlipidemia, Hypertension, Osteoarthritis (OA), Skin Disorder Additional Past Medical History / Comment(s): Psoriasis. History of Any Multi-Drug Resistant Organisms: None Reported Past Surgical History: Hernia Repair Additional Past Surgical History / Comment(s): COLONOSCOPY Past Anesthesia/Blood Transfusion Reactions: No Reported Reaction Past Psychological History: No Psychological Hx Reported Smoking Status: Never smoker Past Alcohol Use History: None Reported Past Drug Use History: None Reported - Past Family History Mother Family Medical History: Cancer Additional Family Medical History / Comment(s): COLON CANCER Father Family Medical History: Cancer Additional Family Medical History / Comment(s): LUNG AND BONE CANCER General Exam Limitations: no limitations General appearance: alert, in no apparent distress Head exam: Present: normocephalic Eye exam: Present: normal appearance Neck exam: Present: normal inspection Respiratory exam: Present: normal lung sounds bilaterally Cardiovascular Exam: Present: regular rate, normal rhythm Expanded Peripheral pulses: 2+: Radial (R), Radial (L), Posterior Tibialis (R), Posterior Tibialis (L) GI/Abdominal exam: Present: soft. Absent: tenderness Extremities exam: Present: normal inspection. Absent: pedal edema, calf tenderness Neurological exam: Present: alert Psychiatric exam: Present: normal affect, normal mood Skin exam: Present: normal color Course Vital Signs 06/09/20 06/09/20 06/09/20 18:01 18:06 18:36 Temperature 97.6 F Pulse Rate 121 H 70 Pulse Rate [ 121 H Bi Manager ] Respiratory 18 18 Rate Blood Pressure 99/64 107/71 O2 Sat by Pulse 100 99 Oximetry 06/09/20 06/09/20 18:43 19:22 Temperature Pulse Rate 66 69 Pulse Rate [ Bi Manager ] Respiratory 18 18 Rate Blood Pressure 107/71 123/80 O2 Sat by Pulse 100 100 Oximetry - Reevaluation(s) Reevaluation #1: 06/09/20 18:31 Patient did have narrow complex irregular rhythm when I walked in the room. Shortly after patient did convert to normal sinus rhythm with a rate of 60. Patient was placed on monitor secondary to arrhythmia and to monitor for heart rate. 06/09/20 18:33 EKG #2 shows normal sinus rhythm with a rate of 68. CT 180. QRS 92. QT 378. QTC 41 axis. Incomplete right bundle-branch block. No acute ST change. 06/09/20 19:17 Case was discussed with Dr. Ruiz who also questions patient's rhythm and would like patient to stay for cardiac workup, repeat troponins. Hold beta blockers. EKG Findings - EKG Comments: EKG Findings:: Sinus tachycardia, second-degree heart block Mobitz 1. Rate 121. Incomplete right bundle-branch block. QRS 92. QT 324. QTC 460. Left axis. No acute ST change. Medical Decision Making - Medical Decision Making Patient reevaluated and remains in normal sinus rhythm. Patient and family updated. Case was also discussed with Dr. Sage, who will admit covering for Dr. Camp. - Lab Data Result diagrams: 06/09/20 18:35 06/09/20 18:35 Lab Results 06/09/20 06/09/20 06/09/20 Range/Units 18:35 18:35 18:35 WBC 7.2 (3.8-10.6) k/uL RBC 4.98 (4.30-5.90) m/uL Hgb 15.0 (13.0-17.5) gm/dL Hct 45.1 (39.0-53.0) % MCV 90.6 (80.0-100.0) fL MCH 30.1 (25.0-35.0) pg MCHC 33.2 (31.0-37.0) g/dL RDW 13.8 (11.5-15.5) % Plt Count 276 (150-450) k/uL MPV 6.5 Neutrophils % 66 % Lymphocytes % 21 % Monocytes % 7 % Eosinophils % 3 % Basophils % 1 % Neutrophils # 4.8 (1.3-7.7) k/uL Lymphocytes # 1.5 (1.0-4.8) k/uL Monocytes # 0.5 (0-1.0) k/uL Eosinophils # 0.2 (0-0.7) k/uL Basophils # 0.1 (0-0.2) k/uL Sodium 140 (137-145) mmol/L Potassium 3.7 (3.5-5.1) mmol/L Chloride 106 (98-107) mmol/L Carbon Dioxide 29 (22-30) mmol/L Anion Gap 5 mmol/L BUN 19 (9-20) mg/dL Creatinine 0.91 (0.66-1.25) mg/dL Est GFR (CKD-EPI)AfAm >90 (>60 ml/min/1.73 sqM) Est GFR (CKD-EPI)NonAf >90 (>60 ml/min/1.73 sqM) Glucose 81 (74-99) mg/dL Calcium 8.6 (8.4-10.2) mg/dL Magnesium 1.8 (1.6-2.3) mg/dL Total Bilirubin 0.3 (0.2-1.3) mg/dL AST 24 (17-59) U/L ALT 20 (4-49) U/L Alkaline Phosphatase 83 (38-126) U/L Troponin I <0.012 (0.000-0.034) ng/mL Total Protein 6.6 (6.3-8.2) g/dL Albumin 3.6 (3.5-5.0) g/dL TSH 2.430 (0.465-4.680) mIU/L Free T4 1.13 (0.78-2.19) ng/dL Free T3 pg/mL 4.9 (2.8-5.3) pg/ml - Radiology Data Radiology results: image reviewed (Chest x-ray reveals no acute process) Disposition Clinical Impression: Tachycardia Disposition: ADMITTED IP TO THIS [facility] Is patient prescribed a controlled substance at d/c from ED?: No Referrals: Phillip Camp MD [REFERRING] - 1-2 days Decision Time: 20:27
[2020-06-09 18:59] LABS: Basophils # (A) 0.1 k/uL (0-0.2); Basophils % (A) 1 %; Eosinophils # (A) 0.2 k/uL (0-0.7); Eosinophils % (A) 3 %; HCT 45.1 % (39.0-53.0); Lymphocytes # (A) 1.5 k/uL (1.0-4.8); Lymphocytes % (A) 21 %; MCH 30.1 pg (25.0-35.0); MCHC 33.2 g/dL (31.0-37.0); MCV 90.6 fL (80.0-100.0); Mean Platelet Volume 6.5; Monocytes # (A) 0.5 k/uL (0-1.0); Monocytes % (A) 7 %; Neutrophils # (A) 4.8 k/uL (1.3-7.7); Neutrophils % (A) 66 %; Platelet Count 276 k/uL (150-450); RBC 4.98 m/uL (4.30-5.90); RDW 13.8 % (11.5-15.5); WBC 7.2 k/uL (3.8-10.6)
--- NOTE | 2020-06-09 19:06 | XR ---
EXAMINATION TYPE: XR chest 2V DATE OF EXAM: 06/09/2020 COMPARISON: 09/27/2019 HISTORY: Dysrhythmia TECHNIQUE: 2 views there is no heart failure nor confluent pneumonic infiltrate. Costophrenic angles are clear. There a re no hilar masses. There are chest leads. Bony thorax is intact. IMPRESSION: No active cardiopulmonary disease. No adverse change.
[2020-06-09 19:42] LABS: ALT 20 U/L (4-49); AST 24 U/L (17-59); African American GFR (CKD) >90 (>60 ml/min/1.73 sqM); Albumin 3.6 g/dL (3.5-5.0); Alkaline Phosphatase 83 U/L (38-126); Anion Gap 5 mmol/L; Blood Urea Nitrogen 19 mg/dL (9-20); Calcium 8.6 mg/dL (8.4-10.2); Carbon Dioxide 29 mmol/L (22-30); Chloride 106 mmol/L (98-107); Glucose 81 mg/dL (74-99); Magnesium 1.8 mg/dL (1.6-2.3); Non-African American GFR(CKD) >90 (>60 ml/min/1.73 sqM); Potassium 3.7 mmol/L (3.5-5.1); Sodium 140 mmol/L (137-145); Total Bilirubin 0.3 mg/dL (0.2-1.3); Total Protein 6.6 g/dL (6.3-8.2)
[2020-06-09 19:59] LABS: T4, Free (Free Thyroxine) 1.13 ng/dL (0.78-2.19)
[2020-06-09] MEDS ORDERED: NALOXONE 0.4 MG/ML 1 ML VIAL IV PRN (20:27)
[2020-06-09] MEDS ORDERED: ASPIRIN 81 MG PO STA (20:28)
[2020-06-09] MEDS ORDERED: SODIUM CHLORIDE 0.9% 1,000 ML IV SCH (20:30)
[2020-06-09 20:43] LABS: Prothrombin Time 10.2 sec (9.0-12.0)
[2020-06-10 08:08] VITALS: BP 133/77; RESP 18; TEMP 98
[2020-06-10] MEDS ORDERED: TICAGRELOR 90 MG TAB PO SCH (09:00)
[2020-06-10] MEDS ORDERED: ASPIRIN 81 MG PO SCH (09:00)
[2020-06-10 09:02] VITALS: PULSE 55
--- NOTE | 2020-06-10 09:18 | P.CRDCN ---
History of Present Illness History of present illness: HISTORY OF PRESENTING ILLNESS This is a pleasant 54-year-old male past medical history significant for coronary artery disease status post PCI to proximal LAD in the setting of a non-ST elevated myocardial infarction September 2019, hypertension, dyslipidemia, paroxysmal SVT and morbid obesity. He follows in the office with Dr. Kasper. We have been asked to see in consultation for palpitations. Days yesterday while he was working on his lawnmower at home he started feeling his heart racing. Calculated his pulse at 190 bpm. He has had this happen in the past and has been able to bear down and come out of it however these methods weren't working this time. On arrival to the emergency department he was having episodes of sinus tachycardia heart rate in the 120. He ultimately converted to sinus mechanism on his own and has been maintaining that since. He is seen and exa mined sitting up in bed in no acute distress. Since his heart rate has come down he has no further feelings of dizziness or being lightheaded. He denies chest pain, shortness of breath, nausea or vomiting. Chest x-ray is negative for an acute cardiopulmonary process. Laboratory data reviewed, CBC unremarkable, electrolytes normal, TSH 2.43, cardiac enzymes negative 3. Current daily cardiac medications include Brilinta 90 mg twice a day, aspirin 81 mg daily, atorvastatin 80 mg daily, Lasix 40 mg daily, Lopressor 25 mg twice a day, losartan 50 mg daily and hydrochlorothiazide 12.5 mg daily. Most recent echocardiogram obtained in the office October 2019 reveals preserved LV systolic function with ejection fraction 55%. REVIEW OF SYSTEMS At the time of my exam: CONSTITUTIONAL: Denies fever or chills. CARDIOVASCULAR: Denies chest pain, shortness of breath, orthopnea, PND or palpitations. RESPIRATORY: Denies cough. GASTROINTESTINAL: Denies abdominal pain, diarrhea, constipation, nausea or vomiting. MUSCULOSKELETAL: Denies myalgias. NEUROLOGIC: Denies numbness, tingling, headacbe or weakness. ENDOCRINE: Denies fatigue, weight change, polydipsia or polyurina. GENITOURINARY: Denies burning, hematuria or urgency with micturation. HEMATOLOGIC: Denies history of anemia or bleeding. PHYSICAL EXAMINATION Blood pressure 100/64 heart rate 48 afebrile and maintaining oxygen saturation on room air. CONSTITUTIONAL: No apparent distress. Obese. HEENT: Head is normocephalic. Pupils are equal, round. Sclerae anicteric. Mucous membranes of the mouth are moist. No JVD. No carotid bruit. CHEST EXAMINATION: Lungs are clear to auscultation. No chest wall tenderness is noted on palpation or with deep breathing. HEART EXAMINATION: Regular rate and rhythm. S1, S2 heard. No murmurs, gallops or rub. ABDOMEN: Soft, nontender. Positive bowel sounds. EXTREMITIES: 2+ peripheral pulses, no lower extremity edema and no calf tenderness. NEUROLOGIC EXAMINATION: Patient is awake, alert and oriented x3. ASSESSMENT Paroxysmal SVT Coronary artery disease s/p PCI 09/2019 maintained on dual anti-platelet therapy Hypertension Dyslipidemia Morbid obesity, BMI 43 PLAN He has auto converted to sinus mechanism with no further episodes of SVT or tachycardia since admission. Stable for discharge from a cardiac perspective, follow up with Dr. Kasper in the office next week. Thank you kindly for this consultation. Nurse Practitioner note has been reviewed, I agree with a documented findings and plan of care. Patient was seen and examined. Past Medical History Past Medical History: Hyperlipidemia, Hypertension, Osteoarthritis (OA), Skin Disorder Additional Past Medical History / Comment(s): Psoriasis. History of Any Multi-Drug Resistant Organisms: None Reported Past Surgical History: Hernia Repair Additional Past Surgical History / Comment(s): COLONOSCOPY Past Anesthesia/Blood Transfusion Reactions: No Reported Reaction Past Psychological History: No Psychological Hx Reported Smoking Status: Never smoker Past Alcohol Use History: None Reported Past Drug Use History: None Reported - Past Family History Mother Family Medical History: Cancer Additional Family Medical History / Comment(s): COLON CANCER Father Family Medical History: Cancer Additional Family Medical History / Comment(s): LUNG AND BONE CANCER Medications and Allergies Home Medications Medication Instructions Recorded Confirmed Type Furosemide [Lasix] 40 mg PO DAILY 09/27/19 06/09/20 History Aspirin 81 mg PO DAILY chew 09/29/19 06/09/20 Rx Atorvastatin [Lipitor] 80 mg PO HS #30 tab 09/29/19 06/09/20 Rx Famotidine [Pepcid] 20 mg PO DAILY tab 09/29/19 06/09/20 Rx Metoprolol Tartrate [Lopressor] 25 mg PO BID #60 tab 09/29/19 06/09/20 Rx Nitroglycerin Sl Tabs [Nitrostat] 0.4 mg SUBLINGUAL Q5M PRN #25 tab 09/29/19 06/09/20 Rx Ticagrelor [Brilinta] 90 mg PO BID #60 tab 09/29/19 06/09/20 Rx Hydrochlorothiazide 12.5 mg PO DAILY 06/09/20 06/09/20 History [hydroCHLOROthiazide] Losartan Potassium 50 mg PO DAILY 06/09/20 06/09/20 History Potass Chlor Er (Uk Strength) 1 tab PO DAILY 06/09/20 06/09/20 History Allergies Allergy/AdvReac Type Severity Reaction Status Date / Time Penicillins Allergy SEIZURE Verified 06/09/20 18:45 Physical Exam Vitals: Vital Signs Temp Pulse Pulse Pulse Resp BP BP 06/10/20 02:10 97.8 F 48 L 16 100/64 06/10/20 02:00 16 06/09/20 21:12 98.2 F 62 20 108/74 06/09/20 21:04 60 18 114/78 06/09/20 19:22 69 18 123/80 06/09/20 18:43 66 18 107/71 06/09/20 18:36 70 18 107/71 06/09/20 18:06 121 H 06/09/20 18:01 97.6 F 121 H 18 99/64 Pulse Ox 06/10/20 02:10 99 06/10/20 02:00 06/09/20 21:12 98 06/09/20 21:04 98 06/09/20 19:22 100 06/09/20 18:43 100 06/09/20 18:36 99 06/09/20 18:06 06/09/20 18:01 100 Intake and Output 06/09/20 06/10/20 06/10/20 22:59 06:59 14:59 Other: # Voids 1 1 Weight 142.428 kg Results 06/09/20 18:35 06/09/20 18:35 Cardiac Enzymes 06/09/20 06/09/20 06/09/20 Range/Units 18:35 18:35 21:58 AST 24 (17-59) U/L Troponin I <0.012 <0.012 (0.000-0.034) ng/mL 06/10/20 Range/Units 00:57 AST (17-59) U/L Troponin I <0.012 (0.000-0.034) ng/mL Coagulation 06/09/20 Range/Units 18:35 PT 10.2 (9.0-12.0) sec APTT 24.0 (22.0-30.0) sec CBC 06/09/20 Range/Units 18:35 WBC 7.2 (3.8-10.6) k/uL RBC 4.98 (4.30-5.90) m/uL Hgb 15.0 (13.0-17.5) gm/dL Hct 45.1 (39.0-53.0) % Plt Count 276 (150-450) k/uL Comprehensive Metabolic Panel 06/09/20 Range/Units 18:35 Sodium 140 (137-145) mmol/L Potassium 3.7 (3.5-5.1) mmol/L Chloride 106 (98-107) mmol/L Carbon Dioxide 29 (22-30) mmol/L BUN 19 (9-20) mg/dL Creatinine 0.91 (0.66-1.25) mg/dL Glucose 81 (74-99) mg/dL Calcium 8.6 (8.4-10.2) mg/dL AST 24 (17-59) U/L ALT 20 (4-49) U/L Alkaline Phosphatase 83 (38-126) U/L Total Protein 6.6 (6.3-8.2) g/dL Albumin 3.6 (3.5-5.0) g/dL Current Medications Generic Name Dose Route Start Last Admin Trade Name Freq PRN Reason Stop Dose Admin Aspirin 81 mg 06/10/20 09:00 Aspirin 81 Mg PO DAILY CHERELLE Atorvastatin Calcium 80 mg 06/10/20 21:00 Atorvastatin 80 Mg Tab PO HS CHERELLE Sodium Chloride 1,000 mls @ 20 mls/hr 06/09/20 20:30 06/09/20 20:59 Saline 0.9% IV 20 mls/hr .Q24H CHERELLE Administration Naloxone HCl 0.2 mg 06/09/20 20:27 Naloxone 0.4 Mg/Ml 1 Ml Vial IV Q2M PRN Opioid Reversal Ticagrelor 90 mg 06/10/20 09:00 Ticagrelor 90 Mg Tab PO BID CHERELLE Intake and Output 06/09/20 06/10/20 06/10/20 22:59 06:59 14:59 Other: # Voids 1 1 Weight 142.428 kg 06/09/20 18:35 06/09/20 18:35
--- NOTE | 2020-06-10 14:13 | P.HPIM ---
History of Present Illness H&P Date: 06/10/20 HISTORY AND PHYSICAL AND DISCHARGE SUMMARY: HISTORY OF PRESENT ILLNESS This is a 54-year-old male patient of Dr. ARTEM Kasper with past medical history of hypertension, hyperlipidemia, chronic low back pain and osteoarthritis, obstructive sleep apnea, history of non-ST elevated myocardial infarction status post PCI of the LAD in September 2019, paroxysmal SVT, morbid obesity with BMI of 43. Patient complains of palpitations, dizziness, lightheadedness. No chest pain, shortness of breath nausea or vomiting. Patient presented to [facility] emergency center for evaluation. He was found to be afebrile, heart rate 121, blood pressure 99/64, pulse ox 100% on room air. Chest x-ray showed no acute cardiopulmonary process. CBC unremarkable, electrolytes normal, TSH 2.43, troponins negative 3. Influenza a and B are negative. RSV negative. Covid 19 negative. At the time of this evaluation, heart rate is in the 50s. Patient has been seen by cardiology and cleared for discharge home with planned follow-up with Dr. Kasper in the office next week. Patient will be discharged home today in stable condition. No medication changes have been made. REVIEW OF SYSTEMS Constitutional: No fever, no chills, no night sweats. No weight change. No weakness, fatigue or lethargy. No daytime sleepiness. EENT: No headache. No blurred vision or double vision, no loss of vision. No loss of Hearing, no ringing in the ears, no dizziness. No nasal drainage or congestion. No epistaxis. No sore throat. Lungs: No shortness of breath, cough, no sputum production. No wheezing. Cardiovascular: No chest pain, no lower extremity edema. No palpitations. No paroxysmal nocturnal dyspnea. No orthopnea. No lightheadedness or dizziness. No syncopal episodes. Abdominal: No abdominal pain. No nausea, vomiting. No diarrhea. No constipation. No bloody or tarry stools.. No loss of appetite. Genitourinary: No dysuria, increased frequency, urgency. No urinary retention. Musculoskeletal: No myalgias. No muscle weakness, no gait dysfunction, no frequent falls. No back pain. No neck pain. Integumentary: No wounds, no lesions. No rash or pruritus. No unusual bruising. No change in hair or nails. Neurologic: No aphasia. No facial droop. No change in mentation. No head injury. No headache. No paralysis. No paresthesia. Psychiatric: No depression. No anxiety. No mood swings. Endocrine: No abnormal blood sugars. No weight change. No excessive sweating or thirst. No cold intolerance. SOCIAL HISTORY Patient is a lifelong nonsmoker, no illicit drug use. 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 He is not and does not have any children. FAMILY HISTORY Father at age 77 from lung cancer. Mother at age 69 from colon cancer. Patient has one sister living with no major medical problems. Patient does not have any children. PHYSICAL EXAMINATION Gen: This is a 54-year-old male patient. He is resting in bed and appears to be comfortable and in no acute distress. HEENT: Head is atraumatic, normocephalic. Pupils equal, round. Sclerae is anicteric. NECK: Supple. No JVD. No lymphadenopathy. No thyromegaly. LUNGS: Clear to auscultation. No wheezes or rhonchi. No intercostal retractions. HEART: Regular rate and rhythm. No murmur. ABDOMEN: Soft. Bowel sounds are present. No masses. No tenderness. EXTREMITIES: No pedal edema. No calf tenderness. Dorsalis pedis palpable bilaterally. NEUROLOGICAL: Patient is awake, alert and oriented x3. Cranial nerves 2 through 12 are grossly intact. ASSESSMENT AND PLAN 1. Palpitations secondary to paroxysmal SVT. 2. History of non-ST elevated myocardial infarction, CAD with PCI of the LAD. 3. Hypertension. 4. Hyperlipidemia. 5. Paroxysmal SVT, stable. 6. Obstructive sleep apnea. 7. Recurrent depression. 8. Morbid obesity. 9. COVID-19 testing negative. Patient has been hospitalized during a pandemic. Patient placed as observation status. DISCHARGE PLAN Home. Impression and plan of care have been directed as dictated by the signing physician. Dinora Swanson nurse practitioner acting as scribe for signing physician. Past Medical History Past Medical History: Hyperlipidemia, Hypertension, Osteoarthritis (OA), Skin Disorder Additional Past Medical History / Comment(s): Psoriasis. History of Any Multi-Drug Resistant Organisms: None Reported Past Surgical History: Hernia Repair Additional Past Surgical History / Comment(s): COLONOSCOPY Past Anesthesia/Blood Transfusion Reactions: No Reported Reaction Past Psychological History: No Psychological Hx Reported Smoking Status: Never smoker Past Alcohol Use History: None Reported Past Drug Use History: None Reported - Past Family History Mother Family Medical History: Cancer Additional Family Medical History / Comment(s): COLON CANCER Father Family Medical History: Cancer Additional Family Medical History / Comment(s): LUNG AND BONE CANCER Medications and Allergies Home Medications Medication Instructions Recorded Confirmed Type Furosemide [Lasix] 20 mg PO DAILY 09/27/19 06/10/20 History Aspirin 81 mg PO DAILY chew 09/29/19 06/09/20 Rx Atorvastatin [Lipitor] 80 mg PO HS #30 tab 09/29/19 06/09/20 Rx Famotidine [Pepcid] 20 mg PO DAILY tab 09/29/19 06/09/20 Rx Metoprolol Tartrate [Lopressor] 25 mg PO BID #60 tab 09/29/19 06/09/20 Rx Nitroglycerin Sl Tabs [Nitrostat] 0.4 mg SUBLINGUAL Q5M PRN #25 tab 09/29/19 06/09/20 Rx Ticagrelor [Brilinta] 90 mg PO BID #60 tab 09/29/19 06/09/20 Rx Hydrochlorothiazide 12.5 mg PO DAILY 06/09/20 06/09/20 History [hydroCHLOROthiazide] Losartan Potassium 50 mg PO DAILY 06/09/20 06/09/20 History Potassium Chloride [Klor-Con 20] 20 meq PO DAILY 06/10/20 06/10/20 History Allergies Allergy/AdvReac Type Severity Reaction Status Date / Time Penicillins Allergy SEIZURE Verified 06/09/20 18:45 Physical Exam Vitals: Vital Signs Temp Pulse Pulse Pulse Resp BP BP 06/10/20 08:00 55 L 56 L 18 06/10/20 07:00 98.0 F 56 L 18 133/77 06/10/20 02:10 97.8 F 48 L 16 100/64 06/10/20 02:00 16 06/09/20 21:12 98.2 F 62 20 108/74 06/09/20 21:04 60 18 114/78 06/09/20 19:22 69 18 123/80 06/09/20 18:43 66 18 107/71 06/09/20 18:36 70 18 107/71 06/09/20 18:06 121 H 06/09/20 18:01 97.6 F 121 H 18 99/64 Pulse Ox 06/10/20 08:00 06/10/20 07:00 100 06/10/20 02:10 99 06/10/20 02:00 06/09/20 21:12 98 06/09/20 21:04 98 06/09/20 19:22 100 06/09/20 18:43 100 06/09/20 18:36 99 06/09/20 18:06 06/09/20 18:01 100 Intake and Output 06/09/20 06/10/20 06/10/20 22:59 06:59 14:59 Other: # Voids 1 1 1 Weight 142.428 kg Results CBC & Chem 7: 06/09/20 18:35 06/09/20 18:35 Thrombosis Risk Factor Assmnt - Choose All That Apply Each Factor Represents 1 point: Age 41-60 years, Swollen legs (current) Other Risk Factors: No Other congenital or acquired thrombophilia - If yes, enter type in comment: No Thrombosis Risk Factor Assessment Total Risk Factor Score: 2 Thrombosis Risk Factor Assessment Level: Low Risk
[2020-06-10] MEDS ORDERED: ATORVASTATIN 80 MG TAB PO SCH (21:00)
== END 2020-06-10 12:16 | disposition home or self-care (01) ==
LOC: EC 17:55 → 6NMEDSUR 20:28
PROVIDERS: ADMIT Internal Medicine Geriatric Medicine; ATTEND Internal Medicine Geriatric Medicine
DX: I47.1 Supraventricular tachycardia (principal); R06.00 Dyspnea, unspecified; I10 Essential (primary) hypertension; E78.5 Hyperlipidemia, unspecified; M79.89 Other specified soft tissue disorders; G89.29 Other chronic pain; M54.5 Low back pain; M19.90 Unspecified osteoarthritis, unspecified site; G47.33 Obstructive sleep apnea (adult) (pediatric); I25.10 Atherosclerotic heart disease of native coronary artery without angina pectoris; I25.2 Old myocardial infarction; E66.01 Morbid (severe) obesity due to excess calories; Z68.41 Body mass index [BMI] 40.0-44.9, adult; F33.9 Major depressive disorder, recurrent, unspecified; L40.9 Psoriasis, unspecified; Z20.822 Contact with and (suspected) exposure to COVID-19; Z95.5 Presence of coronary angioplasty implant and graft; Z79.899 Other long term (current) drug therapy; Z79.82 Long term (current) use of aspirin; Z79.02 Long term (current) use of antithrombotics/antiplatelets; Z88.0 Allergy status to penicillin; Z80.1 Family history of malignant neoplasm of trachea, bronchus and lung; Z80.0 Family history of malignant neoplasm of digestive organs
CPT/HCPCS: 93005 ×2; 99285; 36415; 94760; 84439; 84481; 80053; 83735; 84443; 84484 ×2; 85025; 85610; 85730; 87636; 71046; G0378 ×2

== ENCOUNTER 2021-01-15 12:46 | Emergency (ER) | payer BC, OTHER ==
[2021-01-15 13:38] VITALS: RESP 18; TEMP 98.2
--- NOTE | 2021-01-15 14:01 | ED ---
General Adult HPI - General Chief complaint: Extremity Injury, Upper Stated complaint: Lt Hand Injury Time Seen by Provider: 01/15/21 13:35 Source: patient, RN notes reviewed, old records reviewed Mode of arrival: ambulatory Limitations: physical limitation - History of Present Illness Initial comments: This is a 55-year-old man who comes in complaining of left third proximal phalanx pain. Patient states it occurred after he was using a cord and pulling on the cord. Patient states shortly thereafter she had pain. Patient denies any fever chills. Patient denies any other symptoms at this time - Related Data Home Medications Medication Instructions Recorded Confirmed Furosemide [Lasix] 20 mg PO DAILY 09/27/19 01/15/21 Potassium Chloride [Klor-Con 20] 20 meq PO DAILY 06/10/20 01/15/21 Clopidogrel [Plavix] 75 mg PO DAILY 01/15/21 01/15/21 Losartan-Hctz 50-12.5 mg [Hyzaar 1 tab PO DAILY 01/15/21 01/15/21 50-12.5] Verapamil [Isoptin] 40 mg PO BID 01/15/21 01/15/21 Previous Rx's Medication Instructions Recorded Aspirin 81 mg PO DAILY chew 09/29/19 Atorvastatin [Lipitor] 80 mg PO HS #30 tab 09/29/19 Nitroglycerin Sl Tabs [Nitrostat] 0.4 mg SUBLINGUAL Q5M PRN #25 tab 09/29/19 Allergies Allergy/AdvReac Type Severity Reaction Status Date / Time Penicillins Allergy SEIZURE Verified 01/15/21 14:44 Review of Systems ROS Statement: Those systems with pertinent positive or pertinent negative responses have been documented in the HPI. ROS Other: All systems not noted in ROS Statement are negative. Past Medical History Past Medical History: Hyperlipidemia, Hypertension, Myocardial Infarction ([place]), Osteoarthritis (OA), Skin Disorder Additional Past Medical History / Comment(s): Psoriasis. History of Any Multi-Drug Resistant Organisms: None Reported Past Surgical History: Heart Catheterization With Stent, Hernia Repair Additional Past Surgical History / Comment(s): COLONOSCOPY, STENT Past Anesthesia/Blood Transfusion Reactions: No Reported Reaction Past Psychological History: No Psychological Hx Reported Smoking Status: Never smoker Past Alcohol Use History: None Reported Past Drug Use History: None Reported - Past Family History Mother Family Medical History: Cancer Additional Family Medical History / Comment(s): COLON CANCER Father Family Medical History: Cancer Additional Family Medical History / Comment(s): LUNG AND BONE CANCER General Exam - General Exam Comments Initial Comments: GENERAL Patient is well-developed and well-nourished. Patient is in mild distress. EYES Patient's pupils are equal and round. Extraocular motion is intact SKIN Unremarkable NEURO The patient is alert and oriented 3 PYSCH Patient has normal interpersonal interactions. MUSCULOSKELETAL Patient's left third proximal phalanx is tender to palpate Limitations: physical limitation Course Vital Signs 01/15/21 13:34 Temperature 98.2 F Pulse Rate 60 Respiratory 18 Rate Blood Pressure 128/74 O2 Sat by Pulse 99 Oximetry Medical Decision Making - Medical Decision Making Hand x-ray shows a proximal third phalanx fracture questionable second proximal daily fracture however patient has no pain on palpation in that area. Patient will be splinted to support the third proximal phalanx fracture Disposition Clinical Impression: Fracture of phalanx of hand Disposition: HOME SELF-CARE Condition: Good Instructions (If sedation given, give patient instructions): Finger Fracture (ED) Is patient prescribed a controlled substance at d/c from ED?: No Referrals: Rudy Karimi DO [Doctor of Osteopathic Medicine] - 1-2 days Time of Disposition: 14:33
--- NOTE | 2021-01-15 14:42 | XR ---
EXAMINATION TYPE: XR hand complete LT DATE OF EXAM: 01/15/2021 COMPARISON: None HISTORY: Trauma, pain TECHNIQUE: 3 view left hand FINDINGS: There is a long oblique fracture through the diaphysis of the proximal phalanx third digit. There is some lucency with internal calcification present. Consider pathologic fracture within the d ifferential. No additional fractures are evident. Joint spaces appear preserved. IMPRESSION: 1. Oblique fracture proximal phalanx third digit. 2. Other some lucency with internal calcification at the proximal portion proximal phalanx, consider pathologic fracture within the differential.
[2021-01-15 15:37] VITALS: BP 133/76; PULSE 78
== END 2021-01-15 15:36 | disposition home or self-care (01) ==
LOC: EC 12:46
DX: S62.613A Displaced fracture of proximal phalanx of left middle finger, initial encounter for closed fracture (principal); E78.5 Hyperlipidemia, unspecified; I10 Essential (primary) hypertension; I25.2 Old myocardial infarction; M19.90 Unspecified osteoarthritis, unspecified site; Z79.02 Long term (current) use of antithrombotics/antiplatelets; Z79.82 Long term (current) use of aspirin; Z88.0 Allergy status to penicillin; W22.8XXA Striking against or struck by other objects, initial encounter
CPT/HCPCS: 99283

== ENCOUNTER 2023-03-25 14:56 | Inpatient (IN) | payer BC ==
--- NOTE | 2023-03-25 15:23 | ED ---
General Adult HPI - General Chief complaint: Extremity Problem,Nontraumatic Stated complaint: left leg swelling Time Seen by Provider: 03/25/23 15:18 Source: patient Mode of arrival: ambulatory Limitations: no limitations - History of Present Illness Initial comments: Patient presents to the ED complaining of having left calf redness, swelling and pain for the past 24 hours or so. Patient states that he has also been "unable to keep warm" today, and he is noted to have a very low-grade fever on arrival to the ED. Patient denies known trauma or injury. Patient states that he is on warfarin anticoagulation therapy, and he states that he last took a dose of warfarin last night. Patient denies headache, focal neuro deficit, sore throat, cough or cold symptoms, dyspnea, chest pain, palpitations, dizziness, abdominal pain, nausea/vomiting/diarrhea, dysuria or urinary symptoms, decreased urine output, or any other symptoms or complaints. - Related Data Home Medications Medication Instructions Recorded Confirmed Furosemide [Lasix] 20 mg PO DAILY 09/27/19 01/15/21 Potassium Chloride [Klor-Con 20] 20 meq PO DAILY 06/10/20 01/15/21 Clopidogrel [Plavix] 75 mg PO DAILY 01/15/21 01/15/21 Losartan-Hctz 50-12.5 mg [Hyzaar 1 tab PO DAILY 01/15/21 01/15/21 50-12.5] Verapamil [Isoptin] 40 mg PO BID 01/15/21 01/15/21 Previous Rx's Medication Instructions Recorded Aspirin 81 mg PO DAILY chew 09/29/19 Atorvastatin [Lipitor] 80 mg PO HS #30 tab 09/29/19 Nitroglycerin Sl Tabs [Nitrostat] 0.4 mg SUBLINGUAL Q5M PRN #25 tab 09/29/19 Allergies Allergy/AdvReac Type Severity Reaction Status Date / Time Penicillins Allergy SEIZURE Verified 03/25/23 15:12 Review of Systems ROS Statement: Those systems with pertinent positive or pertinent negative responses have been documented in the HPI. ROS Other: All systems not noted in ROS Statement are negative. Past Medical History Past Medical History: Hyperlipidemia, Hypertension, Myocardial Infarction ([place]), Osteoarthritis (OA), Skin Disorder Additional Past Medical History / Comment(s): Psoriasis. History of Any Multi-Drug Resistant Organisms: None Reported Past Surgical History: Heart Catheterization With Stent, Hernia Repair Additional Past Surgical History / Comment(s): COLONOSCOPY, STENT Past Anesthesia/Blood Transfusion Reactions: No Reported Reaction Past Psychological History: No Psychological Hx Reported Smoking Status: Never smoker Past Alcohol Use History: None Reported Past Drug Use History: None Reported - Past Family History Mother Family Medical History: Cancer Additional Family Medical History / Comment(s): COLON CANCER Father Family Medical History: Cancer Additional Family Medical History / Comment(s): LUNG AND BONE CANCER General Exam Limitations: no limitations General appearance: alert, in no apparent distress Eye exam: Present: normal appearance ENT exam: Present: mucous membranes moist Neck exam: Absent: tenderness, meningismus Respiratory exam: Present: normal lung sounds bilaterally. Absent: respiratory distress, wheezes, rales, rhonchi, stridor Cardiovascular Exam: Present: regular rate, normal rhythm, normal heart sounds, other (Normal dorsalis pedis pulses bilaterally) GI/Abdominal exam: Present: soft. Absent: tenderness, guarding Extremities exam: Present: full ROM, other (Left posterior calf blanching erythema and tenderness; no left lower extremity crepitation or fluctuance is appreciated; negative Homans' sign bilaterally). Absent: pedal edema Back exam: Absent: CVA tenderness (R), CVA tenderness (L) Neurological exam: Present: alert, oriented X3. Absent: motor sensory deficit Psychiatric exam: Present: normal affect Skin exam: Present: warm, dry Course Vital Signs 03/25/23 03/25/23 03/25/23 15:09 15:58 16:51 Temperature 99.7 F H 102.2 F H Pulse Rate 76 86 80 Respiratory 20 16 20 Rate Blood Pressure 146/84 130/86 146/78 O2 Sat by Pulse 99 98 98 Oximetry - Reevaluation(s) Reevaluation #1: 03/25/23 17:52 Patient denies development of any new symptoms while in the ED. Patient is aware of his test results, and he agrees with hospital admission at this time. 03/25/23 18:04 Case, H&P, test results and ED management thus far were discussed with Dr. Petersen. He accepts hospital admission. He has no further recommendations at this time. Medical Decision Making - Medical Decision Making Was pt. sent in by a medical professional or institution (, PA, DATA INPUT CLERK, urgent care, hospital, or correction...) When possible be specific @ -No Did you speak to anyone other than the patient for history (EMS, parent, family, police, friend...)? What history was obtained from this source @ -No Did you review nursing and triage notes (agree or disagree)? Why? @ -I reviewed and agree with nursing and triage notes Were old charts reviewed (outside hosp., previous admission, EMS record, old EKG, old radiological studies, urgent care reports/EKG's, correction records)? Report findings @ -No old charts were reviewed Differential Diagnosis (chest pain, altered mental status, abdominal pain women, abdominal pain men, vaginal bleeding, weakness, fever, dyspnea, syncope, headache, dizziness, GI bleed, back pain, seizure, CVA, palpatations, mental health, musculoskeletal)? @ -Leg pain, cellulitis, sepsis, DVT, thrombophlebitis, muscle strain, muscle spasm, edema EKG interpreted by me (3pts min.). @ -As above X-rays interpreted by me (1pt min.). @ -Left tib/fib x-rays were reviewed myself and show no acute fracture or dislocation and no evidence of subcutaneous gas. I agree with the radiologist's interpretation as above. CT interpreted by me (1pt min.). @ -None done U/S interpreted by me (1pt. min.). @ -None done What testing was considered but not performed or refused? (CT, X-rays, U/S, labs)? Why? @ -None What meds were considered but not given or refused? Why? @ -None Did you discuss the management of the patient with other professionals (professionals i.e. , PA, DATA INPUT CLERK, lab, RT, psych nurse, social services assistant, data sme, teacher, co founder and chief strategy officer, case management social worker)? Give summary @ -As above. Was smoking cessation discussed for >3mins.? @ -No Was critical care preformed (if so, how long)? @ -No Were there social determinants of health that impacted care today? How? (Homelessness, low income, unemployed, alcoholism, drug addiction, transportation, low edu. Level, literacy, decrease access to med. care, fci, re hab)? @ -No Was there de-escalation of care discussed even if they declined (Discuss DNR or withdrawal of care, Hospice)? DNR status @ -No What co-morbidities impacted this encounter? (DM, HTN, Smoking, COPD, CAD, Cancer, CVA, ARF, Chemo, Hep., AIDS, mental health diagnosis, sleep apnea, morbid obesity)? @ -None Was patient admitted / discharged? Hospital course, mention meds given and route, prescriptions, significant lab abnormalities, going to OR and other pertinent info. @ -Patient is noted to have a left calf blanching erythema and tenderness consistent with cellulitis. Patient is also febrile and has leukocytosis. Patient's left tib/fib x-rays are negative for subcutaneous gas. Patient's left lower extremity venous duplex ultrasound is negative for DVT. Patient has been treated with IV vancomycin in the ED for his left leg cellulitis. Dr. Petersen has accepted hospital admission. Patient agrees with hospital admission at this time. Undiagnosed new problem with uncertain prognosis? @ -No Drug Therapy requiring intensive monitoring for toxicity (Heparin, Nitro, Insulin, Cardizem)? @ -No Were any procedures done? @ -No Diagnosis/symptom? @ -Left lower extremity cellulitis Acute, or Chronic, or Acute on Chronic? @ -Acute Uncomplicated (without systemic symptoms) or Complicated (systemic symptoms)? @ -Default Side effects of treatment? @ -No Exacerbation, Progression, or Severe Exacerbation? @ -No Poses a threat to life or bodily function? How? (Chest pain, [place], [place], pneumonia, PE, COPD, DKA, ARF, appy, cholecystitis, CVA, Diverticulitis, Homicidal, Suicidal, threat to staff... and all critical care pts) @ -No - Lab Data Result diagrams: 03/25/23 15:29 03/25/23 15:29 Lab Results 03/25/23 03/25/23 03/25/23 Range/Units 15:29 15:29 15:29 WBC 13.2 H (3.8-10.6) k/uL RBC 4.64 (4.30-5.90) m/uL Hgb 14.2 (13.0-17.5) gm/dL Hct 42.4 (39.0-53.0) % MCV 91.4 (80.0-100.0) fL MCH 30.6 (25.0-35.0) pg MCHC 33.5 (31.0-37.0) g/dL RDW 13.7 (11.5-15.5) % Plt Count 253 (150-450) k/uL MPV 6.8 Neutrophils % 91 % Lymphocytes % 4 % Monocytes % 3 % Eosinophils % 1 % Basophils % 0 % Neutrophils # 12.0 H (1.3-7.7) k/uL Lymphocytes # 0.6 L (1.0-4.8) k/uL Monocytes # 0.4 (0-1.0) k/uL Eosinophils # 0.1 (0-0.7) k/uL Basophils # 0.0 (0-0.2) k/uL PT (10.0-12.5) sec INR (<1.2) APTT (22.0-30.0) sec Sodium 140 (137-145) mmol/L Potassium 4.0 (3.5-5.1) mmol/L Chloride 104 (98-107) mmol/L Carbon Dioxide 29 (22-30) mmol/L Anion Gap 7 mmol/L BUN 23 H (9-20) mg/dL Creatinine 0.85 (0.66-1.25) mg/dL Est GFR (CKD-EPI)AfAm >90 (>60 ml/min/1.73 sqM) Est GFR (CKD-EPI)NonAf >90 (>60 ml/min/1.73 sqM) Glucose 116 H (74-99) mg/dL Plasma Lactic Acid Cesar 0.9 (0.7-2.0) mmol/L Calcium 8.7 (8.4-10.2) mg/dL Total Bilirubin 0.9 (0.2-1.3) mg/dL AST 32 (17-59) U/L ALT 36 (4-49) U/L Alkaline Phosphatase 83 (38-126) U/L Total Protein 7.4 (6.3-8.2) g/dL Albumin 4.1 (3.5-5.0) g/dL 03/25/23 Range/Units 15:31 WBC (3.8-10.6) k/uL RBC (4.30-5.90) m/uL Hgb (13.0-17.5) gm/dL Hct (39.0-53.0) % MCV (80.0-100.0) fL MCH (25.0-35.0) pg MCHC (31.0-37.0) g/dL RDW (11.5-15.5) % Plt Count (150-450) k/uL MPV Neutrophils % % Lymphocytes % % Monocytes % % Eosinophils % % Basophils % % Neutrophils # (1.3-7.7) k/uL Lymphocytes # (1.0-4.8) k/uL Monocytes # (0-1.0) k/uL Eosinophils # (0-0.7) k/uL Basophils # (0-0.2) k/uL PT 20.9 H (10.0-12.5) sec INR 2.1 H (<1.2) APTT 37.9 H (22.0-30.0) sec Sodium (137-145) mmol/L Potassium (3.5-5.1) mmol/L Chloride (98-107) mmol/L Carbon Dioxide (22-30) mmol/L Anion Gap mmol/L BUN (9-20) mg/dL Creatinine (0.66-1.25) mg/dL Est GFR (CKD-EPI)AfAm (>60 ml/min/1.73 sqM) Est GFR (CKD-EPI)NonAf (>60 ml/min/1.73 sqM) Glucose (74-99) mg/dL Plasma Lactic Acid Cesar (0.7-2.0) mmol/L Calcium (8.4-10.2) mg/dL Total Bilirubin (0.2-1.3) mg/dL AST (17-59) U/L ALT (4-49) U/L Alkaline Phosphatase (38-126) U/L Total Protein (6.3-8.2) g/dL Albumin (3.5-5.0) g/dL - Radiology Data Left tib/fib x-rays: There is no acute fracture or dislocation seen in the left tibia or fibula. No suspicious bony destruction. Mild to moderate tricompartmental degenerative changes in the left knee. Moderate to severe diffuse subcutaneous edema is present. Left lower extremity venous duplex ultrasound: No ultrasound evidence for acute DVT in the left lower extremity. Enlarged left groin lymph node redemonstrated but is grossly unchanged from 2015 study. Correlate clinically. Disposition Clinical Impression: Cellulitis of left lower extremity Disposition: ADMITTED IP TO THIS HOSP Condition: Stable Is patient prescribed a controlled substance at d/c from ED?: No Referrals: Marcy Alfredo NPC [REFERRING] - 1-2 days Time of Disposition: 18:04
--- NOTE | 2023-03-25 16:06 | XR ---
EXAMINATION TYPE: XR tibia fibula LT DATE OF EXAM: 03/25/2023 CLINICAL HISTORY: Swelling and redness and pain TECHNIQUE: Two views of the left leg are obtained. COMPARISON: None. FINDINGS: There is no acute fracture or dislocation seen in the left tibia or fibula. No suspicious bony destruction. Mild to moderate tricompartment degenerative changes in the left knee. Moderate to severe diffuse subcutaneous edema is present. IMPRESSION: As above.
[2023-03-25 16:09] LABS: Basophils % (A) 0 %; Eosinophils # (A) 0.1 k/uL (0-0.7); Eosinophils % (A) 1 %; HCT 42.4 % (39.0-53.0); HGB 14.2 gm/dL (13.0-17.5); Lymphocytes # (A) 0.6 k/uL (1.0-4.8); Lymphocytes % (A) 4 %; MCH 30.6 pg (25.0-35.0); MCHC 33.5 g/dL (31.0-37.0); MCV 91.4 fL (80.0-100.0); Mean Platelet Volume 6.8; Monocytes # (A) 0.4 k/uL (0-1.0); Monocytes % (A) 3 %; Neutrophils % (A) 91 %; Platelet Count 253 k/uL (150-450); RBC 4.64 m/uL (4.30-5.90); RDW 13.7 % (11.5-15.5); WBC 13.2 k/uL (3.8-10.6)
[2023-03-25 16:18] LABS: ALT 36 U/L (4-49); AST 32 U/L (17-59); African American GFR (CKD) >90 (>60 ml/min/1.73 sqM); Albumin 4.1 g/dL (3.5-5.0); Alkaline Phosphatase 83 U/L (38-126); Anion Gap 7 mmol/L; Blood Urea Nitrogen 23 mg/dL (9-20); Calcium 8.7 mg/dL (8.4-10.2); Carbon Dioxide 29 mmol/L (22-30); Chloride 104 mmol/L (98-107); Glucose 116 mg/dL (74-99); Non-African American GFR(CKD) >90 (>60 ml/min/1.73 sqM); Sodium 140 mmol/L (137-145); Total Bilirubin 0.9 mg/dL (0.2-1.3); Total Protein 7.4 g/dL (6.3-8.2)
[2023-03-25 16:40] LABS: INR 2.1 (<1.2); Partial Thromboplastin Time 37.9 sec (22.0-30.0); Prothrombin Time 20.9 sec (10.0-12.5)
[2023-03-25] MEDS: ACETAMINOPHEN TAB 500 MG TAB PO STA (17:16)
--- NOTE | 2023-03-25 17:18 | US ---
EXAMINATION TYPE: US venous doppler duplex LE LT DATE OF EXAM: 03/25/2023 5:00 PM COMPARISON: 04/23/14 US CLINICAL INDICATION: Male, 57 years old with history of left calf redness and swelling, R/O DVT; LT c group home swelling/redness/ fever SIDE PERFORMED: Left TECHNIQUE: The lower extremity deep venous system is examined utilizing real time linear array sonog maksim with graded compression, doppler sonography and color-flow sonography. VESSELS IMAGED: Common Femoral Vein Deep Femoral Vein Greater Saphenous Vein * Femoral Vein Popliteal Vein Small Saphenous Vein * Proximal Calf Veins (* superficial vessels) Left Leg: Negative for DVT There is a large 4.5x3.0x1.4cm lymph node at the left groin which appears similar to 2015 exam Grayscale, color doppler, spectral doppler imaging performed of the deep veins of the left lower extr emity. There is normal flow, compressibility, vascular waveforms. IMPRESSION: No ultrasound evidence for acute DVT in the left lower extremity. Enlarged left groin ly mph node redemonstrated but is grossly unchanged from 2015 study. Correlate clinically.
[2023-03-25] MEDS ORDERED: NALOXONE 0.4 MG/ML 1 ML VIAL IV PRN (18:05)
[2023-03-25] MEDS: VANCOMYCIN IV PER PHARMACY 1 EACH MISC MISCELLANE STA (18:18)
[2023-03-25] MEDS: VANCOMYCIN 2,500 MG in SODIUM CHLORIDE 0.9% 500 ML 500 ML IVPB ONE (18:18)
[2023-03-25] MEDS: SODIUM CHLORIDE 0.9% 1,000 ML IV SCH (19:33)
[2023-03-25] MEDS: METOPROLOL TARTRATE 25 MG TAB PO SCH (21:22)
[2023-03-25] MEDS: ATORVASTATIN 80 MG TAB PO SCH (21:22)
[2023-03-25] MEDS: WARFARIN 10 MG TAB PO ONE (21:35)
--- NOTE | 2023-03-25 22:22 | P.HPIM ---
History of Present Illness this is a pleasant 57 yo M With past medical history of Hyperlipidemia, Hypertension, CAD s/p Stent , Osteoarthritis he presents with left leg pain of 1-2 days duration associated with swelling pt denies trauma ,no falling no chest pain no dyspnea Patient denies any change in urine or habits. No neurological complaints he denies smoking , alcohol or illicit drug vitals are stable , has fever on admission at 102.2 has mild leukocytosis at 13k, rest of CBC is unremarkable no significant abnormality is BMP Or LFT INR is 2.1 US IS negative for DVT, but was positive for left inguinal LAP xray showing no fracture or air in soft pt is started on iv vanco in ED Past Medical History Past Medical History: Hyperlipidemia, Hypertension, Myocardial Infarction ([place]), Osteoarthritis (OA), Skin Disorder Additional Past Medical History / Comment(s): Psoriasis. History of Any Multi-Drug Resistant Organisms: None Reported Past Surgical History: Heart Catheterization With Stent, Hernia Repair Additional Past Surgical History / Comment(s): COLONOSCOPY, STENT Past Anesthesia/Blood Transfusion Reactions: No Reported Reaction Past Psychological History: No Psychological Hx Reported Smoking Status: Never smoker Past Alcohol Use History: None Reported Past Drug Use History: None Reported - Past Family History Mother Family Medical History: Cancer Additional Family Medical History / Comment(s): COLON CANCER Father Family Medical History: Cancer Additional Family Medical History / Comment(s): LUNG AND BONE CANCER Medications and Allergies Home Medications Medication Instructions Recorded Confirmed Type Furosemide [Lasix] 20 mg PO DAILY 09/27/19 03/25/23 History Atorvastatin [Lipitor] 80 mg PO HS #30 tab 09/29/19 03/25/23 Rx Clopidogrel [Plavix] 75 mg PO DAILY 01/15/21 03/25/23 History Losartan-Hctz 50-12.5 mg [Hyzaar 1 tab PO DAILY 01/15/21 03/25/23 History 50-12.5] Cholecalciferol [Vitamin D3 (25 50 mcg PO DAILY 03/25/23 03/25/23 History Mcg = 1000 Iu)] Famotidine [Pepcid] 20 mg PO DAILY 03/25/23 03/25/23 History Metoprolol Tartrate [Lopressor] 25 mg PO BID@1500,2100 03/25/23 03/25/23 History Metoprolol Tartrate [Lopressor] 50 mg PO DAILY 03/25/23 03/25/23 History Warfarin [Coumadin] 5 mg PO MOWEFR@209903/25/23 03/25/23 History Warfarin [Coumadin] 10 mg PO SUTUTHSA@209903/25/23 03/25/23 History Allergies Allergy/AdvReac Type Severity Reaction Status Date / Time Penicillins Allergy SEIZURE Verified 03/25/23 18:46 Physical Exam Vitals: Vital Signs Temp Pulse Resp BP Pulse Ox 03/25/23 19:32 75 18 101/58 97 03/25/23 18:00 99 F 70 16 107/59 98 03/25/23 16:51 102.2 F H 80 20 146/78 98 03/25/23 15:58 86 16 130/86 98 03/25/23 15:09 99.7 F H 76 20 146/84 99 Intake and Output 03/25/23 03/25/23 03/25/23 06:59 14:59 22:59 Other: Weight 146.057 kg GENERAL: The patient is alert and oriented x3, not in any acute distress. Well developed, well nourished. HEENT: Pupils are round and equally reacting to light. EOMI. No scleral icterus. No conjunctival pallor. Normocephalic, atraumatic. No pharyngeal erythema. No thyromegaly. CARDIOVASCULAR: S1 and S2 present. No murmurs, rubs, or gallops. PULMONARY: Chest is clear to auscultation, no wheezing , no crackles. ABDOMEN: Soft, nontender, nondistended, normoactive bowel sounds. No palpable or ganomegaly. MUSCULOSKELETAL: No joint swelling or deformity. -EXTREMITIES: No cyanosis, clubbing, or pedal edema. left leg is swollen , and tender, no significant erythema NEUROLOGICAL: Gross neurological examination did not reveal any focal deficits. SKIN: No rashes. no petechiae. Results CBC & Chem 7: 03/25/23 15:29 03/25/23 15:29 Labs: Abnormal Lab Results - Last 24 Hours (Table) 03/25/23 03/25/23 03/25/23 Range/Units 15:29 15:29 15:31 WBC 13.2 H (3.8-10.6) k/uL Neutrophils # 12.0 H (1.3-7.7) k/uL Lymphocytes # 0.6 L (1.0-4.8) k/uL PT 20.9 H (10.0-12.5) sec INR 2.1 H (<1.2) APTT 37.9 H (22.0-30.0) sec BUN 23 H (9-20) mg/dL Glucose 116 H (74-99) mg/dL Assessment and Plan Assessment: Acute left leg cellulite Hyperlipidemia sepsis secondary to above Hypertension CAD s/p Stent Osteoarthritis Plan: c/w iv vancomycin start iv hydration ID Team consult neurovascular check Labs and medication were reviewed.. Continue same treatment. Continue with symptomatic treatment. Resume home medication. Monitor labs and vitals. DVT and GI prophylaxis. Further recommendations as per clinical course of the patient DVT prophylaxis: on coumadin GI Prophylaxis: Pepcid Prognosis is guarded
[2023-03-25 22:34] LABS: Appearance,Urine Clear (Clear); Bilirubin,Urine Negative (Negative); Blood,Urine Trace (Negative); Color,Urine Yellow; Glucose,Urine (UA) Negative (Negative); Ketones,Urine Trace (Negative); Leukocyte Esterase,Urine Moderate (Negative); Mucus,Urine Rare /hpf; Nitrite,Urine Negative (Negative); Protein,Urine Negative (Negative); RBC,Urine 10 /hpf (0-5); Specific Gravity,Urine 1.027 (1.001-1.035); Squamous Epithelial Cell,Urine 1 /hpf (0-4); Urobilinogen,Urine <2.0 mg/dL (<2.0); WBC,Urine 35 /hpf (0-5)
[2023-03-26] MEDS: ACETAMINOPHEN TAB 325 MG TAB PO PRN (00:51)
[2023-03-26] MEDS: VANCOMYCIN 2,500 MG in SODIUM CHLORIDE 0.9% 500 ML 500 ML IVPB SCH (05:57)
[2023-03-26 07:38] LABS: INR 2.1 (<1.2); Prothrombin Time 20.6 sec (10.0-12.5)
[2023-03-26] MEDS: METOPROLOL TARTRATE 50 MG TAB PO SCH (09:27)
[2023-03-26] MEDS: CLOPIDOGREL 75 MG TAB PO SCH (09:27)
[2023-03-26] MEDS: FAMOTIDINE 20 MG TAB PO SCH (09:27)
[2023-03-26 09:32] LABS: Basophils # (A) 0.05 X 10*3/uL (0.00-0.10); Basophils % (A) 0.3 %; Eosinophils # (A) 0.07 X 10*3/uL (0.04-0.35); Eosinophils % (A) 0.5 %; HCT 40.7 % (39.6-50.0); HGB 13.2 g/dL (13.0-17.0); Lymphocytes # (A) 1.41 X 10*3/uL (0.90-5.00); Lymphocytes % (A) 9.1 %; MCH 30.1 pg (27.0-32.0); MCHC 32.4 g/dL (32.0-37.0); MCV 92.7 FL (80.0-97.0); Mean Platelet Volume 9.8 FL (9.5-12.2); Monocytes # (A) 1.16 X 10*3/uL (0.20-1.00); Monocytes % (A) 7.5 %; NRBC Per 100 WBC 0 X 10*3/uL (0.00-0.01); Neutrophils # (A) 12.75 X 10*3/uL (1.80-7.70); Neutrophils % (A) 82.1 %; Platelet Count 238 X 10*3/uL (140-440); RBC 4.39 X 10*6/uL (4.40-5.60); RDW 14.6 % (11.5-14.5); WBC 15.51 X 10*3/uL (4.50-10.00)
[2023-03-26 09:59] LABS: ALT 28 U/L (10-49); AST 22 U/L (14-35); Albumin 3.6 g/dL (3.8-4.9); Albumin/Globulin Ratio 1.38 Ratio (1.60-3.17); Alkaline Phosphatase 72 U/L (41-126); BUN/Creat Ratio 18.56 Ratio (12.00-20.00); Blood Urea Nitrogen 16.7 mg/dL (9.0-27.0); Calcium 8.7 mg/dL (8.7-10.3); Carbon Dioxide 27.3 mmol/L (21.6-31.8); Chloride 102 mmol/L (96-109); Globulin 2.6 g/dL (1.6-3.3); Glucose 105 mg/dL (70-110); Potassium 4.1 mmol/L (3.5-5.5); Sodium 140 mmol/L (135-145); Total Protein 6.2 g/dL (6.2-8.2)
[2023-03-26] MEDS: ceFAZolin 3 GM in SODIUM CHLORIDE 0.9% 100 ML IVPB SCH (14:13)
--- NOTE | 2023-03-26 14:51 | P.CONS ---
History of Present Illness - Reason for Consult Consult date: 03/26/23 Left leg cellulitis Requesting physician: Yassine Petersen - Chief Complaint Increasing swelling redness to left leg x few days - History of Present Illness Patient is a 57-year-old male with a past medical history significant for hypertension hyperlipidemia [place] osteoarthritis presenting to the ER for evaluation of increasing left calf redness swelling and pain going on for about 24 hours before presentation to the hospital patient denies any history of any trauma did have increasing swelling to the left leg with associated redness and pain patient describing the pain to be sharp moderate intensity with movement of the leg however subsequently decreased if he is not moving his leg patient did not have an open wound or any drainage and also having a low-grade fever at home with the same the patient was evaluated on presentation to the hospital he did have a fever of 102.2 F patient was not tachycardic hypotensive or hypoxic he did have white count of 13.2 which is slightly up to 15.5 today creatinine 0.85 INR is 2.1 liver isms are normal urine was mildly positive left leg Doppler was negative for any DVT x-ray did not show any bony changes patient was started on vancomycin because of his penicillin allergy infectious disease was consulted for further management of antibiotic therapy Review of Systems Positive point and negatives has been mentioned in the HPI, complete review of systems was performed and all other systems are negative Past Medical History Past Medical History: Hyperlipidemia, Hypertension, Myocardial Infarction ([place]), Osteoarthritis (OA), Skin Disorder Additional Past Medical History / Comment(s): Psoriasis. Last Myocardial Infarction Date:: 2019 History of Any Multi-Drug Resistant Organisms: None Reported Past Surgical History: Heart Catheterization With Stent, Hernia Repair Additional Past Surgical History / Comment(s): COLONOSCOPY, STENT Past Anesthesia/Blood Transfusion Reactions: No Reported Reaction Date of Last Stent Placement:: 2019 Past Psychological History: No Psychological Hx Reported Smoking Status: Never smoker Past Alcohol Use History: None Reported Past Drug Use History: None Reported - Past Family History Mother Family Medical History: Cancer Additional Family Medical History / Comment(s): COLON CANCER Father Family Medical History: Cancer Additional Family Medical History / Comment(s): LUNG AND BONE CANCER Medications and Allergies Home Medications Medication Instructions Recorded Confirmed Type Furosemide [Lasix] 20 mg PO DAILY 09/27/19 03/25/23 History Atorvastatin [Lipitor] 80 mg PO HS #30 tab 09/29/19 03/25/23 Rx Clopidogrel [Plavix] 75 mg PO DAILY 01/15/21 03/25/23 History Losartan-Hctz 50-12.5 mg [Hyzaar 1 tab PO DAILY 01/15/21 03/25/23 History 50-12.5] Cholecalciferol [Vitamin D3 (25 50 mcg PO DAILY 03/25/23 03/25/23 History Mcg = 1000 Iu)] Famotidine [Pepcid] 20 mg PO DAILY 03/25/23 03/25/23 History Metoprolol Tartrate [Lopressor] 25 mg PO BID@1500,209903/25/23 03/25/23 History Metoprolol Tartrate [Lopressor] 50 mg PO DAILY 03/25/23 03/25/23 History Warfarin [Coumadin] 5 mg PO MOWEFR@209903/25/23 03/25/23 History Warfarin [Coumadin] 10 mg PO SUTUTHSA@209903/25/23 03/25/23 History Allergies Allergy/AdvReac Type Severity Reaction Status Date / Time Penicillins Allergy SEIZURE Verified 03/25/23 18:46 Physical Exam Vitals: Vital Signs Temp Pulse Pulse Resp BP BP Pulse Ox 03/26/23 07:38 99.3 F 70 17 111/67 95 03/26/23 01:28 97.9 F 70 18 111/73 99 03/25/23 22:00 18 03/25/23 20:18 98.8 F 69 18 99/54 96 03/25/23 20:00 99.4 F 73 20 128/70 98 03/25/23 19:32 75 18 101/58 97 03/25/23 18:00 99 F 70 16 107/59 98 03/25/23 16:51 102.2 F H 80 20 146/78 98 03/25/23 15:58 86 16 130/86 98 03/25/23 15:09 99.7 F H 76 20 146/84 99 Intake and Output 03/25/23 03/26/23 03/26/23 22:59 06:59 14:59 Intake Total 2200 Output Total 300 Balance 1900 Intake: Intake, IV Titration 1700 Amount Sodium Chloride 0.9% 1, 1200 000 ml @ 100 mls/hr IV . Q10H [facility] Rx#:[id number] Vancomycin 2,500 mg In 500 Sodium Chloride 0.9% 500 ml 500 ml @ 167 mls/hr IVPB Q12H [facility] Rx#: [id number] Oral 500 Output: Urine 300 Other: Voiding Method Toilet Toilet Urinal Urinal # Voids 1 # Bowel Movements 1 1 Weight 146.057 kg GENERAL DESCRIPTION: Middle-aged male lying in bed, no distress. No tachypnea or accessory muscle of respiration use. HEENT: Shows Pallor , no scleral icterus. Oral mucous membrane is dry. No pharyngeal erythema or thrush NECK: Trachea central, no thyromegaly. LUNGS: Unlabored breathing. Clear to auscultation anteriorly. No wheeze or crackle. HEART: S1, S2, regular rate and rhythm. No loud murmur ABDOMEN: Soft, no tenderness , guarding or rigidity, no organomegaly EXTREMITIES: Diffuse swelling to the left lower extremity with area of redness warmth and tender to touch SKIN: No rash, no masses palpable. NEUROLOGICAL: The patient is awake, alert, oriented x3, mood and affect normal. Results CBC & Chem 7: 03/26/23 06:07 03/26/23 06:07 Labs: Abnormal Lab Results - Last 24 Hours (Table) 03/25/23 03/25/23 03/25/23 Range/Units 15:29 15:29 15:31 WBC 13.2 H (3.8-10.6) k/uL RBC (4.40-5.60) X 10*6/uL RDW (11.5-14.5) % Immature Gran # (0.00-0.04) X 10*3/uL Neutrophils # 12.0 H (1.3-7.7) k/uL Lymphocytes # 0.6 L (1.0-4.8) k/uL Monocytes # (0.20-1.00) X 10*3/uL PT 20.9 H (10.0-12.5) sec INR 2.1 H (<1.2) APTT 37.9 H (22.0-30.0) sec BUN 23 H (9-20) mg/dL Glucose 116 H (74-99) mg/dL Albumin (3.8-4.9) g/dL Albumin/Globulin Ratio (1.60-3.17) Ratio Urine Ketones (Negative) Urine Blood (Negative) Ur Leukocyte Esterase (Negative) Urine RBC (0-5) /hpf Urine WBC (0-5) /hpf Urine Mucus (None) /hpf 03/25/23 03/26/23 03/26/23 Range/Units 21:40 06:07 06:07 WBC 15.51 H (3.8-10.6) k/uL RBC 4.39 L (4.40-5.60) X 10*6/uL RDW 14.6 H (11.5-14.5) % Immature Gran # 0.07 H (0.00-0.04) X 10*3/uL Neutrophils # 12.75 H (1.3-7.7) k/uL Lymphocytes # (1.0-4.8) k/uL Monocytes # 1.16 H (0.20-1.00) X 10*3/uL PT (10.0-12.5) sec INR (<1.2) APTT (22.0-30.0) sec BUN (9-20) mg/dL Glucose (74-99) mg/dL Albumin 3.6 L (3.8-4.9) g/dL Albumin/Globulin Ratio 1.38 L (1.60-3.17) Ratio Urine Ketones Trace H (Negative) Urine Blood Trace H (Negative) Ur Leukocyte Esterase Moderate H (Negative) Urine RBC 10 H (0-5) /hpf Urine WBC 35 H (0-5) /hpf Urine Mucus Rare H (None) /hpf 03/26/23 Range/Units 06:07 WBC (3.8-10.6) k/uL RBC (4.40-5.60) X 10*6/uL RDW (11.5-14.5) % Immature Gran # (0.00-0.04) X 10*3/uL Neutrophils # (1.3-7.7) k/uL Lymphocytes # (1.0-4.8) k/uL Monocytes # (0.20-1.00) X 10*3/uL PT 20.6 H (10.0-12.5) sec INR 2.1 H (<1.2) APTT (22.0-30.0) sec BUN (9-20) mg/dL Glucose (74-99) mg/dL Albumin (3.8-4.9) g/dL Albumin/Globulin Ratio (1.60-3.17) Ratio Urine Ketones (Negative) Urine Blood (Negative) Ur Leukocyte Esterase (Negative) Urine RBC (0-5) /hpf Urine WBC (0-5) /hpf Urine Mucus (None) /hpf Assessment and Plan (1) Sepsis Current Visit: Yes Status: Acute Code(s): A41.9 - SEPSIS, UNSPECIFIED ORGANISM SNOMED Code(s): 05221767 (2) Penicillin allergy Current Visit: Yes Status: Acute Code(s): Z88.0 - ALLERGY STATUS TO PENICILLIN SNOMED Code(s): 79761299 (3) Cellulitis of left lower extremity Current Visit: Yes Status: Acute Code(s): L03.116 - CELLULITIS OF LEFT LOWER LIMB SNOMED Code(s): 08755675017127437 Plan: 1patient was in the hospital with sepsis in this patient who did have a fever elevated white count source is acute left lower extremity cellulitis in this patient who did have diffuse swelling and redness more likely streptococcal disease clinical not behaving as MRSA infection in this patient has not been antibiotic in the recent past 2-penicillin allergy that will limit the number of antibiotics safe to use 3-marked area of the redness and apply Negro wrap from just above the toe to below the knee to keep the swelling down 4-discontinue vancomycin 5-cefazolin 3 g every 8 hours and will monitor clinical course closely multiple question concern answered We will follow on clinical condition and cultures to further adjust medication if needed Thank you for this consultation we will follow the patient along with you Dictation was produced using [employer] dictation software. please excuse any grammatical, word or spelling errors. Time with Patient: Greater than 30
--- NOTE | 2023-03-26 15:59 | P.PN ---
Subjective this is a pleasant 57 yo M With past medical history of Hyperlipidemia, Hypertension, CAD s/p Stent , Osteoarthritis he presents with left leg pain of 1-2 days duration associated with swelling pt denies trauma ,no falling no chest pain no dyspnea Patient denies any change in urine or habits. No neurological complaints he denies smoking , alcohol or illicit drug vitals are stable , has fever on admission at 102.2 has mild leukocytosis at 13k, rest of CBC is unremarkable no significant abnormality is BMP Or LFT INR is 2.1 US IS negative for DVT, but was positive for left inguinal LAP xray showing no fracture or air in soft pt is started on iv vanco in ED 03/26/2023 Patient still complaining from left lower extremity pain and tenderness warmth. There is less swollen because is wrapped with Negro bandage No more fever since admission Trace Vitas looks stable Antibiotics was adjusted to cefazolin He remains on warfarin and Plavix his home medication. 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 HEENT: No recent visual problems or hearing problems. Denied any sore throat. CARDIOVASCULAR: No orthopnea, PND, no palpitations, no syncope. PULMONARY: No shortness of breath, no cough, no hemoptysis. GASTROINTESTINAL: No diarrhea, no nausea, no vomiting, no abdominal pain. Normoactive bowel sounds. HEMATOLOGICAL: Denies any bleeding or petechiae. ENDOCRINE: Denies any polyuria or polydipsia. Active Medications Generic Name Dose Route Start Last Admin Trade Name Freq PRN Reason Stop Dose Admin Acetaminophen 650 mg 03/25/23 18:05 03/26/23 14:26 Acetaminophen Tab 325 Mg Tab PO 650 mg Q6HR PRN Administration Mild Pain or Fever > 100.5 Atorvastatin Calcium 80 mg 03/25/23 21:00 03/25/23 21:22 Atorvastatin 80 Mg Tab PO 80 mg HS [facility] Administration Clopidogrel Bisulfate 75 mg 03/26/23 09:00 03/26/23 09:27 Clopidogrel 75 Mg Tab PO 75 mg DAILY [facility] Administration Famotidine 20 mg 03/26/23 09:00 03/26/23 09:27 Famotidine 20 Mg Tab PO 20 mg DAILY [facility] Administration Sodium Chloride 1,000 mls @ 100 mls/hr 03/25/23 19:30 03/26/23 05:57 Saline 0.9% IV 100 mls/hr .Q10H [facility] Administration Cefazolin Sodium 3 gm/ Sodium 100 mls @ 200 mls/hr 03/26/23 14:00 03/26/23 14:13 Chloride IVPB 200 mls/hr Q8HR [facility] Administration Protocol Metoprolol Tartrate 25 mg 03/25/23 21:00 03/26/23 14:26 Metoprolol Tartrate 25 Mg Tab PO 25 mg BID@1500,2100 [facility] Administration Metoprolol Tartrate 50 mg 03/26/23 09:00 03/26/23 09:27 Metoprolol Tartrate 50 Mg Tab PO 50 mg DAILY [facility] Administration Miscellaneous Information 1 each 03/25/23 19:18 Warfarin Per Pharmacy MISCELLANE DIRECTED PRN Per Protocol Protocol Naloxone HCl 0.2 mg 03/25/23 18:05 Naloxone 0.4 Mg/Ml 1 Ml Vial IV Q2M PRN Opioid Reversal Warfarin Sodium 10 mg 03/26/23 18:00 Warfarin 10 Mg Tab PO 03/26/23 18:01 ONCE@1800 ONE Objective - Vital Signs Vital signs: Vital Signs Temp 99.1 F 03/26/23 12:14 Pulse 68 03/26/23 14:28 Resp 17 03/26/23 12:14 BP 102/63 03/26/23 12:14 Pulse Ox 97 03/26/23 12:14 FiO2 Intake & Output 03/25/23 03/26/23 03/26/23 18:59 06:59 18:59 Intake Total 2200 Output Total 300 Balance 1900 Weight 146.057 kg 146.057 kg Intake: Intake, IV Titration 1700 Amount Sodium Chloride 0.9% 1, 1200 000 ml @ 100 mls/hr IV . Q10H [facility] Rx#:[id number] Vancomycin 2,500 mg In 500 Sodium Chloride 0.9% 500 ml 500 ml @ 167 mls/hr IVPB Q12H [facility] Rx#: [id number] Oral 500 Output: Urine 300 Other: Voiding Method Toilet Toilet Urinal Urinal # Voids 1 # Bowel Movements 1 1 - Labs CBC & Chem 7: 03/26/23 06:07 03/26/23 06:07 Labs: Abnormal Lab Results - Last 24 Hours (Table) 03/25/23 03/25/23 03/25/23 Range/Units 15:29 15:29 15:31 WBC 13.2 H (3.8-10.6) k/uL RBC (4.40-5.60) X 10*6/uL RDW (11.5-14.5) % Immature Gran # (0.00-0.04) X 10*3/uL Neutrophils # 12.0 H (1.3-7.7) k/uL Lymphocytes # 0.6 L (1.0-4.8) k/uL Monocytes # (0.20-1.00) X 10*3/uL PT 20.9 H (10.0-12.5) sec INR 2.1 H (<1.2) APTT 37.9 H (22.0-30.0) sec BUN 23 H (9-20) mg/dL Glucose 116 H (74-99) mg/dL Albumin (3.8-4.9) g/dL Albumin/Globulin Ratio (1.60-3.17) Ratio Urine Ketones (Negative) Urine Blood (Negative) Ur Leukocyte Esterase (Negative) Urine RBC (0-5) /hpf Urine WBC (0-5) /hpf Urine Mucus (None) /hpf 03/25/23 03/26/23 03/26/23 Range/Units 21:40 06:07 06:07 WBC 15.51 H (3.8-10.6) k/uL RBC 4.39 L (4.40-5.60) X 10*6/uL RDW 14.6 H (11.5-14.5) % Immature Gran # 0.07 H (0.00-0.04) X 10*3/uL Neutrophils # 12.75 H (1.3-7.7) k/uL Lymphocytes # (1.0-4.8) k/uL Monocytes # 1.16 H (0.20-1.00) X 10*3/uL PT (10.0-12.5) sec INR (<1.2) APTT (22.0-30.0) sec BUN (9-20) mg/dL Glucose (74-99) mg/dL Albumin 3.6 L (3.8-4.9) g/dL Albumin/Globulin Ratio 1.38 L (1.60-3.17) Ratio Urine Ketones Trace H (Negative) Urine Blood Trace H (Negative) Ur Leukocyte Esterase Moderate H (Negative) Urine RBC 10 H (0-5) /hpf Urine WBC 35 H (0-5) /hpf Urine Mucus Rare H (None) /hpf 03/26/23 Range/Units 06:07 WBC (3.8-10.6) k/uL RBC (4.40-5.60) X 10*6/uL RDW (11.5-14.5) % Immature Gran # (0.00-0.04) X 10*3/uL Neutrophils # (1.3-7.7) k/uL Lymphocytes # (1.0-4.8) k/uL Monocytes # (0.20-1.00) X 10*3/uL PT 20.6 H (10.0-12.5) sec INR 2.1 H (<1.2) APTT (22.0-30.0) sec BUN (9-20) mg/dL Glucose (74-99) mg/dL Albumin (3.8-4.9) g/dL Albumin/Globulin Ratio (1.60-3.17) Ratio Urine Ketones (Negative) Urine Blood (Negative) Ur Leukocyte Esterase (Negative) Urine RBC (0-5) /hpf Urine WBC (0-5) /hpf Urine Mucus (None) /hpf Assessment and Plan Assessment: Acute left leg cellulite Hyperlipidemia sepsis secondary to above Hypertension CAD s/p Stent Osteoarthritis Plan: c/w iv vancomycin was discontinued and patient was placed on cefazolin start iv hydration ID Team consult neurovascular check and we will consult orthopedic team for further evaluation Coumadin pharmacy to dose. Follow up INR Labs and medication were reviewed.. Continue same treatment. Continue with symptomatic treatment. Resume home medication. Monitor labs and vitals. DVT and GI prophylaxis. Further recommendations as per clinical course of the patient DVT prophylaxis: on coumadin GI Prophylaxis: Pepcid Prognosis is guarded
[2023-03-26] MEDS: WARFARIN 10 MG TAB PO ONE (18:13)
[2023-03-27 06:59] LABS: INR 2.3 (<1.2); Prothrombin Time 23.1 sec (10.0-12.5)
[2023-03-27 08:35] LABS: Basophils # (A) 0.03 X 10*3/uL (0.00-0.10); Basophils % (A) 0.2 %; Eosinophils # (A) 0 X 10*3/uL (0.04-0.35); Eosinophils % (A) 0 %; Lymphocytes % (A) 5.1 %; MCH 29.8 pg (27.0-32.0); MCHC 32.4 g/dL (32.0-37.0); MCV 91.8 FL (80.0-97.0); Mean Platelet Volume 9.7 FL (9.5-12.2); Monocytes # (A) 1.16 X 10*3/uL (0.20-1.00); Monocytes % (A) 7.4 %; NRBC Per 100 WBC 0 X 10*3/uL (0.00-0.01); Neutrophils # (A) 13.47 X 10*3/uL (1.80-7.70); Neutrophils % (A) 86.5 %; Platelet Count 207 X 10*3/uL (140-440); RBC 4.03 X 10*6/uL (4.40-5.60); RDW 14.4 % (11.5-14.5); WBC 15.58 X 10*3/uL (4.50-10.00)
[2023-03-27 08:45] LABS: Blood Urea Nitrogen 12.6 mg/dL (9.0-27.0); Calcium 8.1 mg/dL (8.7-10.3); Carbon Dioxide 24.4 mmol/L (21.6-31.8); Chloride 102 mmol/L (96-109); Glucose 123 mg/dL (70-110); Potassium 3.6 mmol/L (3.5-5.5); Sodium 137 mmol/L (135-145)
--- NOTE | 2023-03-27 09:58 | P.CNOR ---
History of Present Illness - HPI Consult date: 03/27/23 History of present illness: This is a 57-year-old male who is admitted for left lower extremity cellulitis. Orthopedics is consulted for further evaluation and patient is seen and evaluated at bedside today. Patient states that he gets chronic swelling in both legs, but a couple of days ago he noticed increased swelling in the left lower extremity that did not improve with rest and elevation. Patient states that he has noticed some improvement since receiving IV antibiotics. Patient localizes the pain to the medial aspect of the proximal calf. Patient denies any injury. Patient denies any numbness, weakness or tingling. Patient's past medical history is significant for hyperlipidemia, hypertension, osteoarthritis and psoriasis. Review of Systems See HPI. Past Medical History Past Medical History: Hyperlipidemia, Hypertension, Myocardial Infarction (IN), Osteoarthritis (OA), Skin Disorder Additional Past Medical History / Comment(s): Psoriasis. Last Myocardial Infarction Date:: 2019 History of Any Multi-Drug Resistant Organisms: None Reported Past Surgical History: Heart Catheterization With Stent, Hernia Repair Additional Past Surgical History / Comment(s): COLONOSCOPY, STENT Past Anesthesia/Blood Transfusion Reactions: No Reported Reaction Date of Last Stent Placement:: 2019 Past Psychological History: No Psychological Hx Reported Smoking Status: Never smoker Past Alcohol Use History: None Reported Past Drug Use History: None Reported - Past Family History Mother Family Medical History: Cancer Additional Family Medical History / Comment(s): COLON CANCER Father Family Medical History: Cancer Additional Family Medical History / Comment(s): LUNG AND BONE CANCER Medications and Allergies Home Medications Medication Instructions Recorded Confirmed Type Furosemide [Lasix] 20 mg PO DAILY 09/27/19 03/25/23 History Atorvastatin [Lipitor] 80 mg PO HS #30 tab 09/29/19 03/25/23 Rx Clopidogrel [Plavix] 75 mg PO DAILY 01/15/21 03/25/23 History Losartan-Hctz 50-12.5 mg [Hyzaar 1 tab PO DAILY 01/15/21 03/25/23 History 50-12.5] Cholecalciferol [Vitamin D3 (25 50 mcg PO DAILY 03/25/23 03/25/23 History Mcg = 1000 Iu)] Famotidine [Pepcid] 20 mg PO DAILY 03/25/23 03/25/23 History Metoprolol Tartrate [Lopressor] 25 mg PO BID@1500,2100 03/25/23 02/10/24 History Metoprolol Tartrate [Lopressor] 50 mg PO DAILY 03/25/23 03/25/23 History Warfarin [Coumadin] 5 mg PO MOWEFR@209903/25/23 03/25/23 History Warfarin [Coumadin] 10 mg PO SUTUTHSA@209903/25/23 03/25/23 History Allergies Allergy/AdvReac Type Severity Reaction Status Date / Time Penicillins Allergy SEIZURE Verified 03/25/23 18:46 Physical Examination On exam patient is resting comfortably in bed in no acute distress. Patient is alert and oriented 3. Left lower extremity: There is moderate edema of the left lower extremity. Th ere is tenderness to palpation over the medial proximal aspect of the left calf. Compartments are soft. Patient has full range of motion of the left foot and ankle without pain or difficulty. There is mild erythema. Patchy areas of psoriasis noted on the lower leg. Dorsalis pedis pulse is 2+. Sensation intact. Neurovascular status and circulatory status are intact. Results X-rays of the left tibia/fibula are reviewed and are negative. Soft tissue swelling present on x-ray. - Labs Labs: Abnormal Lab Results - Last 24 Hours (Table) 03/26/23 03/27/23 03/27/23 Range/Units 06:07 06:08 06:08 WBC 15.58 H (4.50-10.00) X 10*3/uL RBC 4.03 L (4.40-5.60) X 10*6/uL Hgb 12.0 L (13.0-17.0) g/dL Hct 37.0 L (39.6-50.0) % Immature Gran # 0.12 H (0.00-0.04) X 10*3/uL Neutrophils # 13.47 H (1.80-7.70) X 10*3/uL Lymphocytes # 0.80 L (0.90-5.00) X 10*3/uL Monocytes # 1.16 H (0.20-1.00) X 10*3/uL Eosinophils # 0 L (0.04-0.35) X 10*3/uL PT (10.0-12.5) sec INR (<1.2) Glucose 123 H (70-110) mg/dL Calcium 8.1 L (8.7-10.3) mg/dL Albumin 3.6 L (3.8-4.9) g/dL Albumin/Globulin Ratio 1.38 L (1.60-3.17) Ratio 03/27/23 Range/Units 06:08 WBC (4.50-10.00) X 10*3/uL RBC (4.40-5.60) X 10*6/uL Hgb (13.0-17.0) g/dL Hct (39.6-50.0) % Immature Gran # (0.00-0.04) X 10*3/uL Neutrophils # (1.80-7.70) X 10*3/uL Lymphocytes # (0.90-5.00) X 10*3/uL Monocytes # (0.20-1.00) X 10*3/uL Eosinophils # (0.04-0.35) X 10*3/uL PT 23.1 H (10.0-12.5) sec INR 2.3 H (<1.2) Glucose (70-110) mg/dL Calcium (8.7-10.3) mg/dL Albumin (3.8-4.9) g/dL Albumin/Globulin Ratio (1.60-3.17) Ratio Microbiology - Last 24 Hours (Table) 03/25/23 15:50 Blood Culture - Preliminary Blood 03/25/23 15:45 Blood Culture - Preliminary Blood H & H 03/25/23 03/26/23 03/27/23 Range/Units 15:29 06:07 06:08 Hgb 14.2 13.2 12.0 L (13.0-17.5) gm/dL Hct 42.4 40.7 37.0 L (39.0-53.0) % Coagulation 03/25/23 03/26/23 03/27/23 Range/Units 15:31 06:07 06:08 INR 2.1 H 2.1 H 2.3 H (<1.2) Result Diagrams: 03/27/23 06:08 03/27/23 06:08 Assessment and Plan (1) Cellulitis of left lower extremity Current Visit: Yes Status: Acute Code(s): L03.116 - CELLULITIS OF LEFT LOWER LIMB SNOMED Code(s): 39349358730096268 Plan: 1. X-rays are reviewed and are negative. A Doppler ultrasound is negative for DVT. 2. Continue IV antibiotics per infectious disease. 3. There is no surgical intervention planned. We will continue to follow peripherally.
--- NOTE | 2023-03-27 12:00 | P.PN ---
Subjective Progress Note Date: 03/27/23 Principal diagnosis: Reason for follow-up is left lower extremity cellulitis Patient is a 57-year-old male with a past medical history significant for hypertension hyperlipidemia [place] osteoarthritis presenting to the ER for evaluation of increasing left calf redness swelling and pain, patient diagnosed with a left lower extremity cellulitis ultrasound was negative for any DVT. On today's evaluation that is 03/27/2023, the patient did have resolution of his fever pattern low-grade fever of 99.7 last night however the patient afebrile this morning, the patient is on room air and breathing comfortably, the Pt denies having any chest pain or cough, the patient denies having any abdominal pain no vomiting or any diarrhea, patient mention decrease in the discomfort to the left lower extremity. Patient white count is 15.58, creatinine 0.9 cultures are currently pending Objective - Vital Signs Vital signs: Vital Signs Temp 99.4 F 03/27/23 07:28 Pulse 71 03/27/23 07:28 Resp 16 03/27/23 07:28 BP 102/63 03/27/23 07:28 Pulse Ox 96 03/27/23 07:28 FiO2 Intake & Output 03/26/23 03/27/23 03/27/23 18:59 06:59 18:59 Intake Total 2160 1300 Output Total 500 Balance 2160 800 Intake: Intake, IV Titration 1300 Amount Sodium Chloride 0.9% 1, 1200 000 ml @ 100 mls/hr IV . Q10H [facility] Rx#:[id number] ceFAZolin 3 gm In Sodium 100 Chloride 0.9% 100 ml @ 200 mls/hr IVPB Q8HR [facility] Rx#:[id number] Oral 2160 Output: Urine 500 Other: Voiding Method Toilet Toilet Urinal Urinal # Voids 2 # Bowel Movements 1 1 - Exam GENERAL DESCRIPTION: Middle-age male lying in bed in no distress RESPIRATORY SYSTEM: Unlabored breathing , decreased breath sounds at bases HEART: S1 S2 regular rate and rhythm , ABDOMEN: Soft , no tenderness EXTREMITIES: Left leg is wrapped in Negro wrap - Labs CBC & Chem 7: 03/27/23 06:08 03/27/23 06:08 Labs: Abnormal Lab Results - Last 24 Hours (Table) 03/26/23 03/27/23 03/27/23 Range/Units 06:07 06:08 06:08 WBC 15.58 H (4.50-10.00) X 10*3/uL RBC 4.03 L (4.40-5.60) X 10*6/uL Hgb 12.0 L (13.0-17.0) g/dL Hct 37.0 L (39.6-50.0) % Immature Gran # 0.12 H (0.00-0.04) X 10*3/uL Neutrophils # 13.47 H (1.80-7.70) X 10*3/uL Lymphocytes # 0.80 L (0.90-5.00) X 10*3/uL Monocytes # 1.16 H (0.20-1.00) X 10*3/uL Eosinophils # 0 L (0.04-0.35) X 10*3/uL PT (10.0-12.5) sec INR (<1.2) Glucose 123 H (70-110) mg/dL Calcium 8.1 L (8.7-10.3) mg/dL Albumin 3.6 L (3.8-4.9) g/dL Albumin/Globulin Ratio 1.38 L (1.60-3.17) Ratio 03/27/23 Range/Units 06:08 WBC (4.50-10.00) X 10*3/uL RBC (4.40-5.60) X 10*6/uL Hgb (13.0-17.0) g/dL Hct (39.6-50.0) % Immature Gran # (0.00-0.04) X 10*3/uL Neutrophils # (1.80-7.70) X 10*3/uL Lymphocytes # (0.90-5.00) X 10*3/uL Monocytes # (0.20-1.00) X 10*3/uL Eosinophils # (0.04-0.35) X 10*3/uL PT 23.1 H (10.0-12.5) sec INR 2.3 H (<1.2) Glucose (70-110) mg/dL Calcium (8.7-10.3) mg/dL Albumin (3.8-4.9) g/dL Albumin/Globulin Ratio (1.60-3.17) Ratio Microbiology - Last 24 Hours (Table) 03/25/23 15:50 Blood Culture - Preliminary Blood 03/25/23 15:45 Blood Culture - Preliminary Blood Assessment and Plan (1) Sepsis Current Visit: Yes Status: Acute Code(s): A41.9 - SEPSIS, UNSPECIFIED ORGANISM SNOMED Code(s): 80979036 (2) Penicillin allergy Current Visit: Yes Status: Acute Code(s): Z88.0 - ALLERGY STATUS TO PENICILLIN SNOMED Code(s): 75137231 (3) Cellulitis of left lower extremity Current Visit: Yes Status: Acute Code(s): L03.116 - CELLULITIS OF LEFT LOWER LIMB SNOMED Code(s): 25328374840278996 Plan: 1patient was in the hospital with sepsis in this patient who did have a fever elevated white count source is acute left lower extremity cellulitis in this patient who did have diffuse swelling and redness more likely streptococcal disease clinical not behaving as MRSA infection in this patient has not been antibiotic in the recent past 2-penicillin allergy that will limit the number of antibiotics safe to use 3-patient to continue with Negro wrap from just above the toe to below the knee to keep the swelling down 4-patient has tolerated and will continue cefazolin 3 g every 8 hours and will monitor clinical course closely multiple question concern answered Dictation was produced using [employer] dictation software. please excuse any grammatical, word or spelling errors. Time with Patient: Less than 30
--- NOTE | 2023-03-27 12:21 | P.PN ---
Subjective Progress Note Date: 03/27/23 57 yo M With past medical history of Hyperlipidemia, Hypertension, CAD s/p Stent , Osteoarthritis he presents with left leg pain of 1-2 days duration associated with swelling pt denies trauma ,no falling no chest pain no dyspnea Patient denies any change in urine or habits. No neurological complaints he denies smoking , alcohol or illicit drug vitals are stable , has fever on admission at 102.2 has mild leukocytosis at 13k, rest of CBC is unremarkableno significant abnormality is BMP Or LFT INR is 2.1 US IS negative for DVT, but was positive for left inguinal LAP xray showing no fracture or air in soft pt is started on iv vanco in ED 4Patient still complaining from left lower extremity pain and tenderness warmth. There is less swollen because is wrapped with Negro bandage No more fever since admissionTrace Vitas looks stable Antibiotics was adjusted to cefazolin He remains on warfarin and Plavix his home medication. 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 Continue current antibiotic patient does have lower extremity cellulitis. Patient is on Coumadin secondary to history of atrial fibrillation Review of systems CONSTITUTIONAL: No fever, no malaise, no fatigue. HEENT: No recent visual problems or hearing problems. Denied any sore throat. CARDIOVASCULAR: No orthopnea, PND, no palpitations, no syncope. PULMONARY: No shortness of breath, no cough, no hemoptysis. GASTROINTESTINAL: No diarrhea, no nausea, no vomiting, no abdominal pain. Normoactive bowel sounds. HEMATOLOGICAL: Denies any bleeding or petechiae. ENDOCRINE: Denies any polyuria or polydipsia. PHYSICAL EXAMINATION: GENERAL: The patient is alert and oriented x3, Well developed, well nourished. HEENT: Pupils are round and equally reacting to light. EOMI. No scleral icterus. CARDIOVASCULAR: S1 and S2 present. No murmurs, rubs, or gallops. PULMONARY: Chest is clear to auscultation, no wheezing or crackles. ABDOMEN: Soft, nontender, nondistended, normoactive bowel sounds. No palpable organomegaly. MUSCULOSKELETAL: No joint swelling or deformity. EXTREMITIES: Lower extremity swelling noted, left lower extremity wound bandaged NEUROLOGICAL: Gross neurological examination did not reveal any focal deficits. Objective - Vital Signs Vital signs: Vital Signs Temp 99.4 F 03/27/23 07:28 Pulse 71 03/27/23 07:28 Resp 16 03/27/23 07:28 BP 102/63 03/27/23 07:28 Pulse Ox 96 03/27/23 07:28 FiO2 Intake & Output 03/26/23 03/27/23 03/27/23 18:59 06:59 18:59 Intake Total 2160 1300 Output Total 500 Balance 2160 800 Intake: Intake, IV Titration 1300 Amount Sodium Chloride 0.9% 1, 1200 000 ml @ 100 mls/hr IV . Q10H [facility] Rx#:[id number] ceFAZolin 3 gm In Sodium 100 Chloride 0.9% 100 ml @ 200 mls/hr IVPB Q8HR [facility] Rx#:[id number] Oral 2160 Output: Urine 500 Other: Voiding Method Toilet Toilet Toilet Urinal Urinal Urinal # Voids 2 # Bowel Movements 1 1 - Labs CBC & Chem 7: 03/27/23 06:08 03/27/23 06:08 Labs: Abnormal Lab Results - Last 24 Hours (Table) 03/27/23 03/27/23 03/27/23 Range/Units 06:08 06:08 06:08 WBC 15.58 H (4.50-10.00) X 10*3/uL RBC 4.03 L (4.40-5.60) X 10*6/uL Hgb 12.0 L (13.0-17.0) g/dL Hct 37.0 L (39.6-50.0) % Immature Gran # 0.12 H (0.00-0.04) X 10*3/uL Neutrophils # 13.47 H (1.80-7.70) X 10*3/uL Lymphocytes # 0.80 L (0.90-5.00) X 10*3/uL Monocytes # 1.16 H (0.20-1.00) X 10*3/uL Eosinophils # 0 L (0.04-0.35) X 10*3/uL PT 23.1 H (10.0-12.5) sec INR 2.3 H (<1.2) Glucose 123 H (70-110) mg/dL Calcium 8.1 L (8.7-10.3) mg/dL Microbiology - Last 24 Hours (Table) 03/25/23 15:50 Blood Culture - Preliminary Blood 03/25/23 15:45 Blood Culture - Preliminary Blood Assessment and Plan Assessment: Assessment and plan * Left lower extremity cellulitis * Sepsis secondary to cellulitis * Hypertension * History of atrial fibrillation * Hyperlipidemia * Pulmonary artery disease with history of PCI * Morbid obesity * In regards to left lower extremity cellulitis, continue patient on IV antibiotic receiving IV Ancef follow-up on inflammatory markers * In regards to sepsis, blood cultures ordered no growth to date, infectious disease following * In regards to hypertension continue patient on metoprolol * Regards to atrial fibrillation continue metoprolol and Coumadin Time with Patient: Greater than 30
[2023-03-27] MEDS: WARFARIN 5 MG TAB PO ONE (16:59)
[2023-03-28 07:04] LABS: INR 2.5 (<1.2); Prothrombin Time 24.5 sec (10.0-12.5)
[2023-03-28 11:31] LABS: BUN/Creat Ratio 14.75 Ratio (12.00-20.00); Blood Urea Nitrogen 11.8 mg/dL (9.0-27.0); Carbon Dioxide 25.3 mmol/L (21.6-31.8); Chloride 102 mmol/L (96-109); Glucose 116 mg/dL (70-110); Potassium 3.7 mmol/L (3.5-5.5); Sodium 138 mmol/L (135-145)
[2023-03-28 11:47] LABS: HCT 35.7 % (39.6-50.0); HGB 11.8 g/dL (13.0-17.0); MCH 29.6 pg (27.0-32.0); MCHC 33.1 g/dL (32.0-37.0); MCV 89.7 FL (80.0-97.0); Mean Platelet Volume 9.7 FL (9.5-12.2); NRBC Per 100 WBC 0 X 10*3/uL (0.00-0.01); Platelet Count 240 X 10*3/uL (140-440); RBC 3.98 X 10*6/uL (4.40-5.60); RDW 14.3 % (11.5-14.5); WBC 13.51 X 10*3/uL (4.50-10.00)
--- NOTE | 2023-03-28 12:41 | P.PN ---
Subjective Progress Note Date: 03/28/23 57 yo M With past medical history of Hyperlipidemia, Hypertension, CAD s/p Stent , Osteoarthritis he presents with left leg pain of 1-2 days duration associated with swelling pt denies trauma ,no falling no chest pain no dyspnea Patient denies any change in urine or habits. No neurological complaints he denies smoking , alcohol or illicit drug vitals are stable , has fever on admission at 102.2 has mild leukocytosis at 13k, rest of CBC is unremarkableno significant abnormality is BMP Or LFT INR is 2.1 US IS negative for DVT, but was positive for left inguinal LAP xray showing no fracture or air in soft pt is started on iv vanco in ED 4Patient still complaining from left lower extremity pain and tenderness warmth. There is less swollen because is wrapped with Negro bandage No more fever since admissionTrace Vitas looks stable Antibiotics was adjusted to cefazolin He remains on warfarin and Plavix his home medication. 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 Continue current antibiotic patient does have lower extremity cellulitis. Patient is on Coumadin secondary to history of atrial fibrillation 03/28/2023: Patient seen and evaluated bedside, during my evaluation patient is awake and alert, left lower extremity pain has improved significantly, INR 2.5, CBC WBC 13.5 hemoglobin 11.8 platelet count within normal limits CRP 18.5. Appreciate input from infectious disease PHYSICAL EXAMINATION: GENERAL: The patient is alert and oriented x3, Well developed, well nourished. HEENT: Pupils are round and equally reacting to light. EOMI. No scleral icterus. CARDIOVASCULAR: S1 and S2 present. No murmurs, rubs, or gallops. PULMONARY: Chest is clear to auscultation, no wheezing or crackles. ABDOMEN: Soft, nontender, nondistended, normoactive bowel sounds. No palpable organomegaly. MUSCULOSKELETAL: No joint swelling or deformity. EXTREMITIES: Lower extremity swelling noted, left lower extremity wound bandaged NEUROLOGICAL: Gross neurological examination did not reveal any focal deficits. Objective - Vital Signs Vital signs: Vital Signs Temp 98.2 F 03/28/23 11:42 Pulse 59 L 03/28/23 11:42 Resp 18 03/28/23 11:42 BP 109/74 03/28/23 11:42 Pulse Ox 96 03/28/23 11:42 FiO2 Intake & Output 03/27/23 03/28/23 03/28/23 18:59 06:59 18:59 Intake Total 100 50 Balance 100 50 Intake: Intake, IV Titration 100 50 Amount ceFAZolin 3 gm In Sodium 100 50 Chloride 0.9% 100 ml @ 200 mls/hr IVPB Q8HR [facility] Rx#:[id number] Other: Voiding Method Toilet Toilet Urinal Urinal - Labs CBC & Chem 7: 03/28/23 06:43 03/28/23 06:43 Labs: Abnormal Lab Results - Last 24 Hours (Table) 03/28/23 03/28/23 03/28/23 Range/Units 06:43 06:43 06:43 WBC 13.51 H (4.50-10.00) X 10*3/uL RBC 3.98 L (4.40-5.60) X 10*6/uL Hgb 11.8 L (13.0-17.0) g/dL Hct 35.7 L (39.6-50.0) % PT 24.5 H (10.0-12.5) sec INR 2.5 H (<1.2) Glucose 116 H (70-110) mg/dL Calcium 8.0 L (8.7-10.3) mg/dL C-Reactive Protein 18.50 H (0.00-0.80) mg/dL Microbiology - Last 24 Hours (Table) 03/25/23 15:50 Blood Culture - Preliminary Blood 03/25/23 15:45 Blood Culture - Preliminary Blood Assessment and Plan Assessment: Assessment and plan * Left lower extremity cellulitis * Sepsis secondary to cellulitis * Hypertension * History of atrial fibrillation * Hyperlipidemia * Coronary artery disease with history of PCI * Morbid obesity * In regards to left lower extremity cellulitis, continue patient on IV antibiotic receiving IV Ancef follow-up on inflammatory markers * In regards to sepsis, blood cultures ordered no growth to date, infectious disease following * In regards to hypertension continue patient on metoprolol * Regards to atrial fibrillation continue metoprolol and Coumadin * In regards to coronary artery disease continue medical management including Plavix, Lipitor
--- NOTE | 2023-03-28 12:57 | P.PN ---
Subjective Progress Note Date: 03/28/23 Principal diagnosis: Reason for follow-up is left lower extremity cellulitis Patient is a 57-year-old male with a past medical history significant for hypertension hyperlipidemia [place] osteoarthritis presenting to the ER for evaluation of increasing left calf redness swelling and pain, patient diagnosed with a left lower extremity cellulitis ultrasound was negative for any DVT. On today's evaluation that is 03/28/2023, Patient is afebrile , patient is currently on room air and denies having any shortness of breath, the patient denies any chest pain or cough, the patient denies any nausea vomiting did not have any abdominal pain and no diarrhea. Discomfort to the left leg is slightly decreased in intensity. Patient white count is 13.51, creatinine is 0.8 INR is 2.5 blood cultures pending Objective - Vital Signs Vital signs: Vital Signs Temp 99.6 F 03/28/23 08:07 Pulse 64 03/28/23 08:07 Resp 18 03/28/23 08:07 BP 103/63 03/28/23 09:00 Pulse Ox 97 03/28/23 08:07 FiO2 Intake & Output 03/27/23 03/28/23 03/28/23 18:59 06:59 18:59 Intake Total 100 50 Balance 100 50 Intake: Intake, IV Titration 100 50 Amount ceFAZolin 3 gm In Sodium 100 50 Chloride 0.9% 100 ml @ 200 mls/hr IVPB Q8HR [facility] Rx#:[id number] Other: Voiding Method Toilet Toilet Urinal Urinal - Exam GENERAL DESCRIPTION: Middle-age male lying in bed in no distress RESPIRATORY SYSTEM: Unlabored breathing , decreased breath sounds at bases HEART: S1 S2 regular rate and rhythm , ABDOMEN: Soft , no tenderness EXTREMITIES: Left leg is wrapped in Negro wrap - Labs CBC & Chem 7: 03/28/23 06:43 03/28/23 06:43 Labs: Abnormal Lab Results - Last 24 Hours (Table) 03/28/23 Range/Units 06:43 PT 24.5 H (10.0-12.5) sec INR 2.5 H (<1.2) Microbiology - Last 24 Hours (Table) 03/25/23 15:50 Blood Culture - Preliminary Blood 03/25/23 15:45 Blood Culture - Preliminary Blood Assessment and Plan (1) Sepsis Current Visit: Yes Status: Acute Code(s): A41.9 - SEPSIS, UNSPECIFIED ORGANISM SNOMED Code(s): 60211118 (2) Penicillin allergy Current Visit: Yes Status: Acute Code(s): Z88.0 - ALLERGY STATUS TO PENICILLIN SNOMED Code(s): 98235530 (3) Cellulitis of left lower extremity Current Visit: Yes Status: Acute Code(s): L03.116 - CELLULITIS OF LEFT LOWER LIMB SNOMED Code(s): 40366381256995701 Plan: 1patient was in the hospital with sepsis in this patient who did have a fever elevated white count source is acute left lower extremity cellulitis in this patient who did have diffuse swelling and redness more likely streptococcal disease clinical not behaving as MRSA infection in this patient has not been antibiotic in the recent past 2-penicillin allergy that will limit the number of antibiotics safe to use 3-patient to continue with Negro wrap from just above the toe to below the knee to keep the swelling down 4-patient did have resolution of his fever white count is trending down to continue with the cefazolin and monitor clinical course closely Dictation was produced using [employer] dictation software. please excuse any grammatical, word or spelling errors. Time with Patient: Less than 30
[2023-03-28] MEDS: WARFARIN 5 MG TAB PO ONE (18:15)
[2023-03-29 05:53] LABS: INR 2.2 (<1.2); Prothrombin Time 22.1 sec (10.0-12.5)
--- NOTE | 2023-03-29 11:55 | P.PN ---
Subjective Progress Note Date: 03/29/23 Principal diagnosis: Reason for follow-up is left lower extremity cellulitis Patient is a 57-year-old male with a past medical history significant for hypertension hyperlipidemia ID osteoarthritis presenting to the ER for evaluation of increasing left calf redness swelling and pain, patient diagnosed with a left lower extremity cellulitis ultrasound was negative for any DVT. On today's evaluation that is 03/29/2023,the patient denies any fever or any chills, patient is breathing comfortably on room air, the patient denies chest pain shortness of breath and no significant cough, patient denies abdominal pain, no nausea vomiting or diarrhea. Still complaining of discomfort to the left lower extremity and noticed to have slight redness to the left medial groin . Patient white count was 13,000 yesterday CBC is pending from today INR is 2.2 cultures currently pending Objective - Vital Signs Vital signs: Vital Signs Temp 98.7 F 03/29/23 07:30 Pulse 64 03/29/23 07:30 Resp 18 03/29/23 07:30 BP 118/71 03/29/23 07:30 Pulse Ox 99 03/29/23 07:30 FiO2 Intake & Output 03/28/23 03/29/23 03/29/23 18:59 06:59 18:59 Intake Total 590 590 Output Total 900 250 Balance 590 -310 -250 Intake: Oral 590 590 Output: Urine 900 250 Other: Voiding Method Urinal Urinal # Voids 1 1 # Bowel Movements 1 - Exam GENERAL DESCRIPTION: Middle-age male lying in bed in no distress RESPIRATORY SYSTEM: Unlabored breathing , decreased breath sounds at bases HEART: S1 S2 regular rate and rhythm , ABDOMEN: Soft , no tenderness EXTREMITIES: Left leg is wrapped in Negro wrap, noticed to have some erythema to the left medial thigh - Labs CBC & Chem 7: 03/28/23 06:43 03/28/23 06:43 Labs: Abnormal Lab Results - Last 24 Hours (Table) 03/28/23 03/28/23 03/29/23 Range/Units 06:43 06:43 04:41 WBC 13.51 H (4.50-10.00) X 10*3/uL RBC 3.98 L (4.40-5.60) X 10*6/uL Hgb 11.8 L (13.0-17.0) g/dL Hct 35.7 L (39.6-50.0) % PT 22.1 H (10.0-12.5) sec INR 2.2 H (<1.2) Glucose 116 H (70-110) mg/dL Calcium 8.0 L (8.7-10.3) mg/dL C-Reactive Protein 18.50 H (0.00-0.80) mg/dL Microbiology - Last 24 Hours (Table) 03/25/23 15:50 Blood Culture - Preliminary Blood 03/25/23 15:45 Blood Culture - Preliminary Blood Assessment and Plan (1) Sepsis Current Visit: Yes Status: Acute Code(s): A41.9 - SEPSIS, UNSPECIFIED ORGANISM SNOMED Code(s): 95751043 (2) Penicillin allergy Current Visit: Yes Status: Acute Code(s): Z88.0 - ALLERGY STATUS TO PENICILLIN SNOMED Code(s): 28821050 (3) Cellulitis of left lower extremity Current Visit: Yes Status: Acute Code(s): L03.116 - CELLULITIS OF LEFT LOWER LIMB SNOMED Code(s): 94931024458369247 Plan: 1patient was in the hospital with sepsis in this patient who did have a fever elevated white count source is acute left lower extremity cellulitis in this patient who did have diffuse swelling and redness more likely streptococcal disease clinical not behaving as MRSA infection in this patient has not been antibiotic in the recent past 2-penicillin allergy that will limit the number of antibiotics safe to use 3-patient to continue with Negro wrap from just above the toe to below the knee to keep the swelling down 4-patient still have extensive cellulitis to left lower extremity recommend continue patient on cefazolin and marked area of the redness to the left medial thigh Dictation was produced using [email or web address] dictation software. please excuse any grammatical, word or spelling errors. Time with Patient: Less than 30
--- NOTE | 2023-03-29 12:45 | P.PN ---
Subjective Progress Note Date: 03/29/23 57 yo M With past medical history of Hyperlipidemia, Hypertension, CAD s/p Stent , Osteoarthritis he presents with left leg pain of 1-2 days duration associated with swelling pt denies trauma ,no falling no chest pain no dyspnea Patient denies any change in urine or habits. No neurological complaints he denies smoking , alcohol or illicit drug vitals are stable , has fever on admission at 102.2 has mild leukocytosis at 13k, rest of CBC is unremarkableno significant abnormality is BMP Or LFT INR is 2.1 US IS negative for DVT, but was positive for left inguinal LAP xray showing no fracture or air in soft pt is started on iv vanco in ED 4Patient still complaining from left lower extremity pain and tenderness warmth. There is less swollen because is wrapped with Negro bandage No more fever since admissionTrace Vitas looks stable Antibiotics was adjusted to cefazolin He remains on warfarin and Plavix his home medication. INR 2.1 We'll consult also orthopedic team manager administration for left leg swelling 03/27/2023: DR CASTRO Assumed care>> patient seen evaluated bedside, patient does complain of leg discomfort which has improved. Continue current antibiotic patient does have lower extremity cellulitis. Patient is on Coumadin secondary to history of atrial fibrillation 03/28/2023: Patient seen and evaluated bedside, during my evaluation patient is awake and alert, left lower extremity pain has improved significantly, INR 2.5, CBC WBC 13.5 hemoglobin 11.8 platelet count within normal limits CRP 18.5. Appreciate input from infectious disease 03/29/2023: Patient seen and evaluated bedside, patient states left lower extremity swelling and pain has improved. Continue IV antibiotic PHYSICAL EXAMINATION: GENERAL: The patient is alert and oriented x3, Well developed, well nourished. HEENT: Pupils are round and equally reacting to light. EOMI. No scleral icterus. CARDIOVASCULAR: S1 and S2 present. No murmurs, rubs, or gallops. PULMONARY: Chest is clear to auscultation, no wheezing or crackles. ABDOMEN: Soft, nontender, nondistended, normoactive bowel sounds. No palpable organomegaly. MUSCULOSKELETAL: No joint swelling or deformity. EXTREMITIES: Lower extremity swelling noted, left lower extremity wound bandaged NEUROLOGICAL: Gross neurological examination did not reveal any focal deficits. Objective - Vital Signs Vital signs: Vital Signs Temp 98.7 F 03/29/23 07:30 Pulse 64 03/29/23 07:30 Resp 18 03/29/23 07:30 BP 118/71 03/29/23 07:30 Pulse Ox 99 03/29/23 07:30 FiO2 Intake & Output 03/28/23 03/29/23 03/29/23 18:59 06:59 18:59 Intake Total 590 590 Output Total 900 250 Balance 590 -310 -250 Intake: Oral 590 590 Output: Urine 900 250 Other: Voiding Method Urinal Urinal # Voids 1 1 # Bowel Movements 1 - Labs CBC & Chem 7: 03/28/23 06:43 03/28/23 06:43 Labs: Abnormal Lab Results - Last 24 Hours (Table) 03/29/23 Range/Units 04:41 PT 22.1 H (10.0-12.5) sec INR 2.2 H (<1.2) Microbiology - Last 24 Hours (Table) 03/25/23 15:50 Blood Culture - Preliminary Blood 03/25/23 15:45 Blood Culture - Preliminary Blood Assessment and Plan Assessment: Assessment and plan * Left lower extremity cellulitis * Sepsis secondary to cellulitis * Hypertension * History of atrial fibrillation * Hyperlipidemia * Coronary artery disease with history of PCI * Morbid obesity * In regards to left lower extremity cellulitis, continue patient on IV antibiotic receiving IV Ancef >> follow-up on inflammatory markers * In regards to sepsis, blood cultures ordered no growth to date, infectious disease following * In regards to hypertension continue patient on metoprolol * Regards to atrial fibrillation continue metoprolol and Coumadin * In regards to coronary artery disease continue medical management including Plavix, Lipitor Time with Patient: Greater than 30
[2023-03-29] MEDS: WARFARIN 5 MG TAB PO ONE (18:00)
[2023-03-30 07:07] LABS: INR 2.4 (<1.2); Prothrombin Time 24.1 sec (10.0-12.5)
[2023-03-30 10:17] LABS: HGB 12.1 g/dL (13.0-17.0); MCH 29.6 pg (27.0-32.0); MCHC 32.7 g/dL (32.0-37.0); MCV 90.5 FL (80.0-97.0); Mean Platelet Volume 9.2 FL (9.5-12.2); NRBC Per 100 WBC 0 X 10*3/uL (0.00-0.01); Platelet Count 294 X 10*3/uL (140-440); RBC 4.09 X 10*6/uL (4.40-5.60); RDW 14.4 % (11.5-14.5); WBC 9.65 X 10*3/uL (4.50-10.00)
[2023-03-30 10:43] LABS: BUN/Creat Ratio 14.12 Ratio (12.00-20.00); Blood Urea Nitrogen 11.3 mg/dL (9.0-27.0); Calcium 8.4 mg/dL (8.7-10.3); Carbon Dioxide 27.9 mmol/L (21.6-31.8); Chloride 102 mmol/L (96-109); Glucose 111 mg/dL (70-110); Potassium 3.3 mmol/L (3.5-5.5); Sodium 141 mmol/L (135-145)
--- NOTE | 2023-03-30 11:05 | P.PN ---
Subjective Progress Note Date: 03/30/23 57 yo M With past medical history of Hyperlipidemia, Hypertension, CAD s/p Stent , Osteoarthritis he presents with left leg pain of 1-2 days duration associated with swelling pt denies trauma ,no falling no chest pain no dyspnea Patient denies any change in urine or habits. No neurological complaints he denies smoking , alcohol or illicit drug vitals are stable , has fever on admission at 102.2 has mild leukocytosis at 13k, rest of CBC is unremarkableno significant abnormality is BMP Or LFT INR is 2.1 US IS negative for DVT, but was positive for left inguinal LAP xray showing no fracture or air in soft pt is started on iv vanco in ED 4Patient still complaining from left lower extremity pain and tenderness warmth. There is less swollen because is wrapped with Negro bandage No more fever since admissionTrace Vitas looks stable Antibiotics was adjusted to cefazolin He remains on warfarin and Plavix his home medication. INR 2.1 We'll consult also orthopedic team chief innovation officer for left leg swelling 03/27/2023: DR CASTRO Assumed care>> patient seen evaluated bedside, patient does complain of leg discomfort which has improved. Continue current antibiotic patient does have lower extremity cellulitis. Patient is on Coumadin secondary to history of atrial fibrillation 03/28/2023: Patient seen and evaluated bedside, during my evaluation patient is awake and alert, left lower extremity pain has improved significantly, INR 2.5, CBC WBC 13.5 hemoglobin 11.8 platelet count within normal limits CRP 18.5. Appreciate input from infectious disease 03/29/2023: Patient seen and evaluated bedside, patient states left lower extremity swelling and pain has improved. Continue IV antibiotic 03/30/2023: Patient seen and evaluated bedside, during my evaluation patient is awake and alert does complain of left lower extremity discomfort, blood work reviewed, CBC trending down within normal limits INR 2.4 potassium of 3.3 that is replaced CRP trending down 12.3 previously 18.5. Continue patient on IV antibiotic PHYSICAL EXAMINATION: GENERAL: The patient is alert and oriented x3, Well developed, well nourished. HEENT: Pupils are round and equally reacting to light. EOMI. No scleral icterus. CARDIOVASCULAR: S1 and S2 present. No murmurs, rubs, or gallops. PULMONARY: Chest is clear to auscultation, no wheezing or crackles. ABDOMEN: Soft, nontender, nondistended, normoactive bowel sounds. No palpable organomegaly. MUSCULOSKELETAL: No joint swelling or deformity. EXTREMITIES: Lower extremity swelling noted, left lower extremity wound b andaged, warmth, erythema NEUROLOGICAL: Gross neurological examination did not reveal any focal deficits. Objective - Vital Signs Vital signs: Vital Signs Temp 98.0 F 03/30/23 07:19 Pulse 56 L 03/30/23 07:19 Resp 17 03/30/23 07:19 BP 112/71 03/30/23 07:19 Pulse Ox 98 03/30/23 07:19 FiO2 Intake & Output 03/29/23 03/30/23 03/30/23 18:59 06:59 18:59 Intake Total 1250 Output Total 250 300 Balance 1000 -300 Intake: Intake, IV Titration 1250 Amount Sodium Chloride 0.9% 1, 1150 000 ml @ 100 mls/hr IV . Q10H [facility] Rx#:[id number] ceFAZolin 3 gm In Sodium 100 Chloride 0.9% 100 ml @ 200 mls/hr IVPB Q8HR [facility] Rx#:[id number] Output: Urine 250 300 Other: Voiding Method Toilet Urinal - Labs CBC & Chem 7: 03/30/23 06:35 03/30/23 06:35 Labs: Abnormal Lab Results - Last 24 Hours (Table) 03/30/23 03/30/23 03/30/23 Range/Units 06:35 06:35 06:35 RBC 4.09 L (4.40-5.60) X 10*6/uL Hgb 12.1 L (13.0-17.0) g/dL Hct 37.0 L (39.6-50.0) % MPV 9.2 L (9.5-12.2) FL PT 24.1 H (10.0-12.5) sec INR 2.4 H (<1.2) Potassium 3.3 L (3.5-5.5) mmol/L Glucose 111 H (70-110) mg/dL Calcium 8.4 L (8.7-10.3) mg/dL C-Reactive Protein 12.30 H (0.00-0.80) mg/dL Assessment and Plan Assessment: Assessment and plan * Left lower extremity cellulitis * Sepsis secondary to cellulitis * Hypertension * History of atrial fibrillation * Hyperlipidemia * Coronary artery disease with history of PCI * Morbid obesity * In regards to left lower extremity cellulitis, continue patient on IV antibi otic receiving IV Ancef >> follow-up on inflammatory markers trending down * In regards to sepsis, blood cultures ordered no growth to date, infectious disease following * In regards to hypertension continue patient on metoprolol * In regards to atrial fibrillation continue metoprolol and Coumadin * In regards to coronary artery disease continue medical management including Plavix, Lipitor * Discharge disposition to be determined, patient will discuss with sister regarding subacute rehab versus home, final antibiotic plan pending Time with Patient: Greater than 30
[2023-03-30] MEDS: POTASSIUM CHLORIDE ER 20 MEQ TAB.ER PO STA (11:32)
--- NOTE | 2023-03-30 12:03 | P.PN ---
Subjective Progress Note Date: 03/30/23 Principal diagnosis: Reason for follow-up is left lower extremity cellulitis Patient is a 57-year-old male with a past medical history significant for hypertension hyperlipidemia OR osteoarthritis presenting to the ER for evaluation of increasing left calf redness swelling and pain, patient diagnosed with a left lower extremity cellulitis ultrasound was negative for any DVT. On today's evaluation that is 03/30/2023,the patient remains to be afebrile, patient is on room air not requiring supplemental oxygen and denies any shortness of breath no chest pain or cough.Patient denies having any nausea or vomiting, no abdominal pain and no diarrhea has been reported, pain and discomfort to the left lower extremity slightly decreased in intensity. Patient white count normalized to 9.65, creatinine is 0.8 Objective - Vital Signs Vital signs: Vital Signs Temp 98.0 F 03/30/23 07:19 Pulse 56 L 03/30/23 07:19 Resp 17 03/30/23 07:19 BP 112/71 03/30/23 07:19 Pulse Ox 98 03/30/23 07:19 FiO2 Intake & Output 03/29/23 03/30/23 03/30/23 18:59 06:59 18:59 Intake Total 1250 Output Total 250 300 Balance 1000 -300 Intake: Intake, IV Titration 1250 Amount Sodium Chloride 0.9% 1, 1150 000 ml @ 100 mls/hr IV . Q10H [facility] Rx#:[id number] ceFAZolin 3 gm In Sodium 100 Chloride 0.9% 100 ml @ 200 mls/hr IVPB Q8HR [facility] Rx#:[id number] Output: Urine 250 300 Other: Voiding Method Toilet Urinal - Exam GENERAL DESCRIPTION: Middle-age male lying in bed in no distress RESPIRATORY SYSTEM: Unlabored breathing , decreased breath sounds at bases HEART: S1 S2 regular rate and rhythm , ABDOMEN: Soft , no tenderness EXTREMITIES: Left leg swelling redness has decreased in intensity and dehydration of the erythema to the left thigh - Labs CBC & Chem 7: 03/30/23 06:35 03/30/23 06:35 Labs: Abnormal Lab Results - Last 24 Hours (Table) 03/30/23 Range/Units 06:35 PT 24.1 H (10.0-12.5) sec INR 2.4 H (<1.2) Assessment and Plan (1) Sepsis Current Visit: Yes Status: Acute Code(s): A41.9 - SEPSIS, UNSPECIFIED ORGANISM SNOMED Code(s): 01357791 (2) Penicillin allergy Current Visit: Yes Status: Acute Code(s): Z88.0 - ALLERGY STATUS TO PENICILLIN SNOMED Code(s): 30160206 (3) Cellulitis of left lower extremity Current Visit: Yes Status: Acute Code(s): L03.116 - CELLULITIS OF LEFT LOWER LIMB SNOMED Code(s): 49639288884719951 Plan: 1patient was in the hospital with sepsis in this patient who did have a fever elevated white count source is acute left lower extremity cellulitis in this patient who did have diffuse swelling and redness more likely streptococcal disease clinical not behaving as MRSA infection in this patient has not been antibiotic in the recent past 2-penicillin allergy that will limit the number of antibiotics safe to use 3-patient to continue with Negro wrap from just above the toe to below the knee to keep the swelling down 4-patient is afebrile the patient white count has normalized left lower extremity swelling redness slightly increased continue with the IV cefazolin while inpatient we will plan to finish therapy with oral Keflex Dictation was produced using [employer] dictation software. please excuse any gra mmatical, word or spelling errors. Time with Patient: Less than 30
[2023-03-30] MEDS: WARFARIN 5 MG TAB PO ONE (18:15)
[2023-03-31 06:25] LABS: INR 2.3 (<1.2); Prothrombin Time 22.8 sec (10.0-12.5)
[2023-03-31 08:19] LABS: HCT 36.8 % (39.6-50.0); MCH 29.7 pg (27.0-32.0); MCHC 32.6 g/dL (32.0-37.0); MCV 91.1 FL (80.0-97.0); Mean Platelet Volume 9.3 FL (9.5-12.2); NRBC Per 100 WBC 0 X 10*3/uL (0.00-0.01); Platelet Count 327 X 10*3/uL (140-440); RBC 4.04 X 10*6/uL (4.40-5.60); RDW 14.4 % (11.5-14.5); WBC 9.03 X 10*3/uL (4.50-10.00)
[2023-03-31 08:40] LABS: BUN/Creat Ratio 17.12 Ratio (12.00-20.00); Blood Urea Nitrogen 13.7 mg/dL (9.0-27.0); Calcium 8.4 mg/dL (8.7-10.3); Chloride 104 mmol/L (96-109); Glucose 104 mg/dL (70-110); Potassium 3.9 mmol/L (3.5-5.5); Sodium 143 mmol/L (135-145)
--- NOTE | 2023-03-31 15:20 | P.PN ---
Subjective Progress Note Date: 03/31/23 Principal diagnosis: Reason for follow-up is left lower extremity cellulitis Patient is a 57-year-old male with a past medical history significant for hypertension hyperlipidemia [place] osteoarthritis presenting to the ER for evaluation of increasing left calf redness swelling and pain, patient diagnosed with a left lower extremity cellulitis ultrasound was negative for any DVT. On today's evaluation that is 03/31/2023, the patient continues to be afebrile, the patient is on room air and breathing comfortably, the Pt denies having any chest pain or cough, the patient denies having any abdominal pain no vomiting or any diarrhea has been reported by the nursing staff, the patient left lower extremity swelling redness has decreased. Patient white count 9.03, creatinine 0.8 blood culture has been negative Objective - Vital Signs Vital signs: Vital Signs Temp 98.5 F 03/31/23 07:31 Pulse 55 L 03/31/23 07:31 Resp 16 03/31/23 07:31 BP 115/76 03/31/23 07:31 Pulse Ox 97 03/31/23 07:31 FiO2 Intake & Output 03/30/23 03/31/23 03/31/23 18:59 06:59 18:59 Output Total 400 Balance -400 Output: Urine 400 Other: Voiding Method Toilet Urinal # Voids 2 - Exam GENERAL DESCRIPTION: Middle-age male lying in bed in no distress RESPIRATORY SYSTEM: Unlabored breathing , decreased breath sounds at bases HEART: S1 S2 regular rate and rhythm , ABDOMEN: Soft , no tenderness EXTREMITIES: Left leg swelling redness has decreased in intensity and dehydration of the erythema to the left thigh - Labs CBC & Chem 7: 03/31/23 05:21 03/31/23 05:21 Labs: Abnormal Lab Results - Last 24 Hours (Table) 03/30/23 03/31/23 03/31/23 Range/Units 06:35 05:21 05:21 RBC 4.04 L (4.40-5.60) X 10*6/uL Hgb 12.0 L (13.0-17.0) g/dL Hct 36.8 L (39.6-50.0) % MPV 9.3 L (9.5-12.2) FL PT 22.8 H (10.0-12.5) sec INR 2.3 H (<1.2) Potassium 3.3 L (3.5-5.5) mmol/L Glucose 111 H (70-110) mg/dL Calcium 8.4 L (8.7-10.3) mg/dL C-Reactive Protein 12.30 H (0.00-0.80) mg/dL 03/31/23 Range/Units 05:21 RBC (4.40-5.60) X 10*6/uL Hgb (13.0-17.0) g/dL Hct (39.6-50.0) % MPV (9.5-12.2) FL PT (10.0-12.5) sec INR (<1.2) Potassium (3.5-5.5) mmol/L Glucose (70-110) mg/dL Calcium 8.4 L (8.7-10.3) mg/dL C-Reactive Protein 10.00 H (0.00-0.80) mg/dL Microbiology - Last 24 Hours (Table) 03/25/23 15:50 Blood Culture - Final Blood 03/25/23 15:45 Blood Culture - Final Blood Assessment and Plan (1) Sepsis Current Visit: Yes Status: Acute Code(s): A41.9 - SEPSIS, UNSPECIFIED [facility] SNOMED Code(s): 85427996 (2) Penicillin allergy Current Visit: Yes Status: Acute Code(s): Z88.0 - ALLERGY STATUS TO PENICILLIN SNOMED Code(s): 19206521 (3) Cellulitis of left lower extremity Current Visit: Yes Status: Acute Code(s): L03.116 - CELLULITIS OF LEFT LOWER LIMB SNOMED Code(s): 70880389439191504 Plan: 1patient was in the hospital with sepsis in this patient who did have a fever elevated white count source is acute left lower extremity cellulitis in this patient who did have diffuse swelling and redness more likely streptococcal disease clinical not behaving as MRSA infection in this patient has not been antibiotic in the recent past 2-penicillin allergy that will limit the number of antibiotics safe to use 3-patient to continue with Negro wrap from just above the toe to below the knee to keep the swelling down 4-patient is afebrile the patient white count has normalized and left lower extremity swelling redness has decreased in intensity, patient is covered with the cefazolin plan to finish therapy with oral Keflex question concern answered Dictation was produced using [email or web address] dictation software. please excuse any grammatical, word or spelling errors. Time with Patient: Less than 30
[2023-03-31] MEDS: WARFARIN 5 MG TAB PO ONE (16:56)
[2023-04-01 06:10] LABS: INR 2.1 (<1.2); Prothrombin Time 20.9 sec (10.0-12.5)
--- NOTE | 2023-04-01 11:36 | P.PN ---
Subjective Progress Note Date: 04/01/23 Principal diagnosis: Reason for follow-up is left lower extremity cellulitis Patient is a 57-year-old male with a past medical history significant for hypertension hyperlipidemia [place] osteoarthritis presenting to the ER for evaluation of increasing left calf redness swelling and pain, patient diagnosed with a left lower extremity cellulitis ultrasound was negative for any DVT. On today's evaluation that is04/01/2023, Patient is afebrile patient is currently on room air and denies having any shortness of breath, the patient denies any chest pain or cough, the patient denies any nausea vomiting did not have any abdominal pain and no diarrhea pain to the left lower extremity has decreased in intensity feeling better wants to go home. Patient did have INR of 2.1 blood culture has been negative white count was normal Objective - Vital Signs Vital signs: Vital Signs Temp 98.0 F 04/01/23 07:16 Pulse 53 L 04/01/23 07:16 Resp 16 04/01/23 07:16 BP 110/61 04/01/23 07:16 Pulse Ox 98 04/01/23 07:16 FiO2 Intake & Output 03/31/23 04/01/23 04/01/23 18:59 06:59 18:59 Output Total 600 Balance -600 Output: Urine 600 Other: Voiding Method Toilet Urinal # Voids 3 1 - Exam GENERAL DESCRIPTION: Middle-age male lying in bed in no distress RESPIRATORY SYSTEM: Unlabored breathing , decreased breath sounds at bases HEART: S1 S2 regular rate and rhythm , ABDOMEN: Soft , no tenderness EXTREMITIES: Left leg swelling has decreased currently covered with a Negro wrap - Labs CBC & Chem 7: 03/31/23 05:21 03/31/23 05:21 Labs: Abnormal Lab Results - Last 24 Hours (Table) 04/01/23 Range/Units 05:19 PT 20.9 H (10.0-12.5) sec INR 2.1 H (<1.2) Assessment and Plan (1) Sepsis Current Visit: Yes Status: Acute Code(s): A41.9 - SEPSIS, UNSPECIFIED ORGANISM SNOMED Code(s): 26819365 (2) Penicillin allergy Current Visit: Yes Status: Acute Code(s): Z88.0 - ALLERGY STATUS TO PENICIL [place]O SNOMED Code(s): 15549095 (3) Cellulitis of left lower extremity Current Visit: Yes Status: Acute Code(s): L03.116 - CELLULITIS OF LEFT LOWER LIMB SNOMED Code(s): 59927175523868842 Plan: 1patient was in the hospital with sepsis in this patient who did have a fever elevated white count source is acute left lower extremity cellulitis in this patient who did have diffuse swelling and redness more likely streptococcal disease clinical not behaving as MRSA infection in this patient has not been antibiotic in the recent past 2-penicillin allergy that will limit the number of antibiotics safe to use 3-patient to continue with Negro wrap from just above the toe to below the knee to keep the swelling down 4-patient is afebrile the patient white count has normalized, patient did have overall improvement to the left lower extremity cellulitis and will be able to finish therapy with oral Keflex x 10 days patient vies need to monitor his INR closely while on antibiotics Dictation was produced using [employer] dictation software. please excuse any grammatical, word or spelling errors. Time with Patient: Less than 30
[2023-04-01 13:20] VITALS: BP 110/66; PULSE 54; RESP 20; TEMP 98.5
--- NOTE | 2023-04-01 14:00 | P.PN ---
Subjective Progress Note Date: 03/31/23 57 yo M With past medical history of Hyperlipidemia, Hypertension, CAD s/p Stent , Osteoarthritis he presents with left leg pain of 1-2 days duration associated with swelling pt denies trauma ,no falling no chest pain no dyspnea Patient denies any change in urine or habits. No neurological complaints he denies smoking , alcohol or illicit drug vitals are stable , has fever on admission at 102.2 has mild leukocytosis at 13k, rest of CBC is unremarkableno significant abnormality is BMP Or LFT INR is 2.1 US IS negative for DVT, but was positive for left inguinal LAP xray showing no fracture or air in soft pt is started on iv vanco in ED 4Patient still complaining from left lower extremity pain and tenderness warmth. There is less swollen because is wrapped with Negro bandage No more fever since admissionTrace Vitas looks stable Antibiotics was adjusted to cefazolin He remains on warfarin and Plavix his home medication. INR 2.1 We'll consult also orthopedic team manager infusion for left leg swelling patient was in the hospital with sepsis in this patient who did have a fever elevated white count source is acute left lower extremity cellulitis in this patient who did have diffuse swelling and redness more likely streptococcal disease clinical not behaving as MRSA infection in this patient has not been antibiotic in the recent past -penicillin allergy that will limit the number of antibiotics safe to use -patient to continue with Negro wrap from just above the toe to below the knee to keep the swelling down -patient is afebrile the patient white count has normalized and left lower extremity swelling redness has decreased in intensity, patient is covered with the cefazolin plan to finish therapy with oral Keflex Objective - Vital Signs Vital signs: Vital Signs Temp 98.1 F 03/31/23 12:28 Pulse 50 L 03/31/23 12:28 Resp 16 03/31/23 12:28 BP 113/73 03/31/23 12:28 Pulse Ox 99 03/31/23 12:28 FiO2 Intake & Output 03/30/23 03/31/23 03/31/23 18:59 06:59 18:59 Output Total 400 Balance -400 Output: Urine 400 Other: Voiding Method Toilet Urinal # Voids 2 - Exam GENERAL: The patient is alert and oriented x3, Well developed, well nourished. HEENT: Pupils are round and equally reacting to light. EOMI. No scleral icterus. CARDIOVASCULAR: S1 and S2 present. No murmurs, rubs, or gallops. PULMONARY: Chest is clear to auscultation, no wheezing or crackles. ABDOMEN: Soft, nontender, nondistended, normoactive bowel sounds. No palpable organomegaly. MUSCULOSKELETAL: No joint swelling or deformity. EXTREMITIES: Lower extremity swelling noted, left lower extremity wound bandaged, warmth, erythema NEUROLOGICAL: Gross neurological examination did not reveal any focal deficits. - Labs CBC & Chem 7: 03/31/23 05:21 03/31/23 05:21 Labs: Abnormal Lab Results - Last 24 Hours (Table) 03/31/23 03/31/23 03/31/23 Range/Units 05:21 05:21 05:21 RBC 4.04 L (4.40-5.60) X 10*6/uL Hgb 12.0 L (13.0-17.0) g/dL Hct 36.8 L (39.6-50.0) % MPV 9.3 L (9.5-12.2) FL PT 22.8 H (10.0-12.5) sec INR 2.3 H (<1.2) Calcium 8.4 L (8.7-10.3) mg/dL C-Reactive Protein 10.00 H (0.00-0.80) mg/dL Microbiology - Last 24 Hours (Table) 03/25/23 15:50 Blood Culture - Final Blood 03/25/23 15:45 Blood Culture - Final Blood Assessment and Plan Assessment: * Left lower extremity cellulitis * Sepsis secondary to cellulitis * Hypertension * History of atrial fibrillation * Hyperlipidemia * Coronary artery disease with history of PCI * Morbid obesity * In regards to left lower extremity cellulitis, continue patient on IV antibiotic receiving IV Ancef >> follow-up on inflammatory markers trending down * In regards to sepsis, blood cultures ordered no growth to date, infectious disease following * In regards to hypertension continue patient on metoprolol * In regards to atrial fibrillation continue metoprolol and Coumadin * In regards to coronary artery disease continue medical management including Plavix, Lipitor * Discharge disposition to be determined, patient will discuss with sister regarding subacute rehab versus home, final antibiotic plan pending
[2023-04-01] MEDS ORDERED: WARFARIN 7.5 MG TAB PO ONE (18:00)
== END 2023-04-01 17:39 | disposition home or self-care (01) | DRG 872 ==
LOC: EC 14:56 → 5NMEDONC 18:05 → OBSVTOIN 03-27 10:47
PROVIDERS: ADMIT Internal Medicine; ATTEND Internal Medicine
DX: A40.9 Streptococcal sepsis, unspecified (principal); L03.116 Cellulitis of left lower limb; Z68.42 Body mass index [BMI] 45.0-49.9, adult; E66.01 Morbid (severe) obesity due to excess calories; E78.5 Hyperlipidemia, unspecified; I10 Essential (primary) hypertension; I25.10 Atherosclerotic heart disease of native coronary artery without angina pectoris; I48.91 Unspecified atrial fibrillation; I25.2 Old myocardial infarction; M19.90 Unspecified osteoarthritis, unspecified site; L40.9 Psoriasis, unspecified; Z87.19 Personal history of other diseases of the digestive system; Z79.01 Long term (current) use of anticoagulants; Z79.02 Long term (current) use of antithrombotics/antiplatelets; Z79.82 Long term (current) use of aspirin; Z79.899 Other long term (current) drug therapy; Z95.5 Presence of coronary angioplasty implant and graft; Z88.0 Allergy status to penicillin
CPT/HCPCS: 36415; 80048; 80053; 81001; 83605; 85025; 85027; 85610; 85730; 86140; 87040; 96365; 96366; 99285